=== PATIENT | female | born 1950 | race Caucasian/White ===

== ENCOUNTER 2016-12-22 10:31 | Emergency (ER) | payer OTHER, MEDICARE ==
[~2016-12-22] VITALS: Ht 152.4 cm; Wt 99.8 kg
[~2016-12-22 10:31] MED LIST: ALBUTEROL 3 ML3 ML INH; ATIVAN 0.5MG T0.5 MG PO; ATROVENT 0.02%2.5 ML INH; AZITHROMYCIN250 MG PO; BREO ELLIPTA 11 EACH PO; COMBIVENT1 ARO INH; DELTASONE20 MG PO; DESYREL50 MG PO; DILTIAZEM ER240 MG PO; DILTIAZEM240 M1 PO; FOSAMAX70 M1 PO; FUROSEMIDE20 M1 PO; GABAPENTIN TAB600 MG PO; GABAPENTIN300 MG PO; GLUCOPHAGE500 MG PO; GLUCOPHAGE850 M1 PO; GLUCOPHAGE850 MG PO; IPRATROPIUM 2.2.5 ML PO; KLOR-CON 10MEQ10 MEQ PO; KLOR-CON M1010 ME1 PO; LASIX 100M100 MG/10 IV; LASIX20 MG PO; LASIX40 MG PO; LEADER NIC14 MG/24 H TOP; LEXAPRO 5MG5 MG PO; LEXAPRO10 M1 PO; LISINOPRIL10 M1 PO; MAGNESIUM OXID400 M1 PO; METFORMIN HCL500 M3 PO; METFORMIN HCL500 MG PO; NICODERM C21 MG/24 H TOP; NOVOLOG100 U/ML SC; PREDNISONE10 MG PO; PREDNISONE5 MG PO; PRINIVIL10 MG PO; SOLU-MEDROL40 MG IV; SPIRIVA 18 MCG18 MCG INH; SYMBICORT 160/41 PUF INH; VENTOLIN1 PUF INH; VENTOLIN1 PUF PO; ZITHROMAX 500M500 MG PO; ZOFRAN 4 MG TABL4 MG PO
[2016-12-22] MEDS ORDERED: PROVENTIL HFA6.7 GM INH (11:58)
[2016-12-22] MEDS ORDERED: ALBUTEROL2.5 MG/3 M INH/SOL (11:58)
[2016-12-22] MEDS ORDERED: IPRATROPIU0.2 MG/1 M INH/SOL (12:00)
[2016-12-22] MEDS ORDERED: ATIVAN0.5 M1 PO (12:01)
--- NOTE | 2016-12-22 12:49 | CT SCAN REPORT ---
EXAMINATION: CT HEAD WITHOUT CONTRAST CLINICAL INFORMATION: Recent fall with head injury. COMPARISON: None. TECHNIQUE: Contiguous axial imaging was performed from the skull base to vertex without intravenous administration of contrast. Additional coronal reformatted images are submitted. DLP: 636.69 mGy-cm FINDINGS: There is no evidence of acute intracranial hemorrhage or territorial infarction. No abnormal mass effect or midline shift is seen. Funk to white matter differentiation is well preserved. No extra-axial fluid collections are identified. The ventricles are normal in size. There is mild patchy low attenuation change in the periventricular white matter spaces. A tiny lacunar infarction is seen in the right globus pallidus. The osseous structures and soft tissues are normal. At the anterior left vertex, a 0.5 mm calcified meningioma is seen. This shows no mass effect and is of doubtful clinical significance. The mastoid air cells and visualized portions of the paranasal sinuses are well aerated. IMPRESSION: 1. No acute intracranial pathology. 2. There is mild patchy low attenuation change in the periventricular white matter spaces, commonly associated with chronic microangiopathy. 3. A tiny chronic lacunar infarction is incidentally noted within the right globus pallidus.
--- NOTE | 2016-12-22 12:54 | ED MVC/FALL/TRAUMA COMPLAINT ---
History of Present Illness General Chief Complaint: Fall Stated Complaint: BIBA BODY PAIN S/P FALL LAST NIGHT Source: patient Exam Limitations: no limitations Vital Signs & Intake/Output Vital Signs & Intake/Output Vital Signs Date Time Temp Pulse Resp B/P B/P Pulse O2 O2 Flow FiO2 Mean Ox Delivery Rate 12/22 1500 97.5 98 18 145/72 95 Room Air Room Air 12/22 1441 98 Nasal 2.0L Cannula ED Intake and Output 12/23 0000 12/22 1200 Intake Total Output Total Balance Patient 220 lb Weight Allergies Coded Allergies: NO KNOWN ALLERGIES (11/27/14) Reconcile Medications Albuterol Sulfate 2.5 MG/3 ML (0.083 %) VIAL.NEB 1 Vial INH/JUAN R TID BREATHING PROBLEMS (Reported) Albuterol Sulfate (Proventil Hfa) 90 MCG HFA.AER.AD 2 PUF INH Q4 PRN SHORTNESS OF BREATH (Reported) Alendronate Sodium (Fosamax) 70 MG TABLET 1 TAB PO QSUN BONE (Reported) in the morning, at least 30 minutes before the first food, beverage, or medication of the day Diltiazem HCl (Diltiazem ER) 240 MG CAP.ER.DEG 1 MG PO D HEART HEALTH ( Reported) Escitalopram Oxalate (Lexapro) 10 MG TABLET 1 TAB PO DAILY DEPRESSION ( Reported) Fluticasone/Vilanterol (Breo Ellipta 100-25 Mcg INH) 100 MCG-25 MCG/DOSE BLST.W.DEV 1 PUFF PO DAILY SHORTNESS OF BREATH (Reported) Furosemide 20 MG TABLET 1 TAB PO DAILY HEART HEALTH (Reported) Ipratropium [place] 0.2 MG/ML (0.02 %) SOLUTION 1 Vial INH/JUAN R TID BREATHING PROBLEMS (Reported) Lisinopril 10 MG TABLET 1 TAB PO DAILY HIGH BLOOD PRESSURE (Reported) Lorazepam (Ativan) 0.5 MG TABLET 1 TAB PO QPMP PRN ANXIETY (Reported) Magnesium Oxide 400 MG TABLET 1 TAB PO DAILY PRN SUPPLEMENT (Reported) Metformin HCl 500 MG TABLET 1 TAB PO BID DIABETES (Reported) Potassium Chloride (Klor-Con M10) 10 MEQ TAB.ER.PRT 1 TAB PO DAILY HEALTH SUPPLEMENT (Reported) Triage Note: PT STATES THAT SHE LIVES BY HERSELF AND LAST NIGHT SHE SLIPPED ON PAPERS AND FELL AND HIT THE BACK OF HER HEAD ON THE FLOOR. PT WASABLE TO GET UP ON OWNAND DENIES LOC. ALSO STATES THAT SHE HAS A BRUISE TO HER L SHOULDER. SENT FOR HEAD CT. DENIES THINNERS Triage Nurses Notes Reviewed? yes HPI: This patient is a 66 year old female who presented for evaluation of pain s/p fall yesterday. She reported that she was trying to close a window last night, but there was newspaper on the floor and she slipped. She reported that she hit the back of her head on the ground. Denied LOC. She reported that she has pain in the back of her head only when palpated which is a 2 out of 10 and throbbing. She denied an headaches, visual changes, dizziness, nausea, vomiting, abdominal pain. She did reported 4 out of 10 pain in her left elbow, "only sometimes," which is non radiating. She endorsed pain in her right rib cage as well. (WINSOME HATHAWAY PA-C) Past History Travel History Traveled to [place] past 21 day No Medical History Any Pertinent Medical History? 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 No (WINSOME HATHAWAY PA-C) Review of Systems Review of Systems Constitutional: Reports: no symptoms. Eyes: Reports: no symptoms. Ears, Nose, Throat, Mouth: Reports: no symptoms. Respiratory: Reports: no symptoms. Cardiovascular: Reports: no symptoms. Gastrointestinal/Abdominal: Reports: no symptoms. Musculoskeletal: Reports: see HPI. Skin: Reports: no symptoms. Neurological/Psychological: Reports: no symptoms. All Other Systems: Reviewed and Negative (WINSOME HATHAWAY PA-C) Physical Exam Physical Exam General Appearance: well developed/nourished, no apparent distress, alert, awake Comments: Well-developed well-nourished person in no acute distress HEENT: Normal EENT exam, extraocular motion intact, no nystagmus. Pupils equally round and reactive to light. Nose is atraumatic. External auditory canal and Tympanic membranes clear. Pharynx normal. No swelling or edema. Neck: Supple, no lymphadenopathy, normal range of motion without pain or tenderness Back: Nontender, no CVA tenderness. Full range of motion Cardiovascular: Regular rate and rhythms no murmurs, normal JVP Respiratory: Chest nontender. No respiratory distress. Breath sounds clear to auscultation bilaterally Abdomen: Soft, nontender nondistended, no appreciable organomegaly. Normal bowel sounds. No ascites Extremity: No edema, no calf tenderness to palpation, normal and equal pulses. Neuro: Alert oriented x3, motor sensory normal, cranial nerves II through XII grossly intact. Skin: No appreciable rash on exposed skin, skin is warm and dry. Psych: Mood and affect is normal, memory and judgment is normal. Core Measures ACS in differential dx? Yes Severe Sepsis Present: No Septic Shock Present: No (RIVAS SELLERS,WINSOME) Progress Differential Diagnosis: aoritic dissection, abd injury, C/T/L spine injury, ext injury, ICH, pelvis injury, pnemothorax, spinal cord injury, consussion Plan of Care: Current Medications Sig/Warren Start time Last Medication Dose Stop Time Status Admin Albuterol Sulfate 3 ML ONCE ONE 12/22 1430 UNVr (Proventil) 12/22 1431 Ipratropium [place] 2.5 ML ONCE ONE 12/22 1430 UNVr (Atrovent) 12/22 1431 Diagnostic Imaging: Viewed by Me: Radiology Read, CT Scan. Discussed w/RAD: Radiology Read, CT Scan. Radiology Impression: PATIENT: ODALIS ONEAL PRESENT AGE: 66 PATIENT ACCOUNT NO: [id number] : 48 LOCATION: [facility] ORDERING PHYSICIAN: PRASHANT WALTERS DO SERVICE DATE: 12/22/16 EXAM TYPE: CAT - CT HEAD WO IV CONTRAST EXAMINATION: CT HEAD WITHOUT CONTRAST CLINICAL INFORMATION: Recent fall with head injury. COMPARISON: None. TECHNIQUE: Contiguous axial imaging was performed from the skull base to vertex without intravenous administration of contrast. Additional coronal reformatted images are submitted. DLP: 636.69 mGy-cm FINDINGS: There is no evidence of acute intracranial hemorrhage or territorial infarction. No abnormal mass effect or midline shift is seen. Funk to white matter differentiation is well preserved. No extra-axial fluid collections are identified. The ventricles are normal in size. There is mild patchy low attenuation change in the periventricular white matter spaces. A tiny lacunar infarction is seen in the right globus pallidus. The osseous structures and soft tissues are normal. At the anterior left vertex, a 0.5 mm calcified meningioma is seen. This shows no mass effect and is of doubtful clinical significance. The mastoid air cells and visualized portions of the paranasal sinuses are well aerated. IMPRESSION: 1. No acute intracranial pathology. 2. There is mild patchy low attenuation change in the periventricular white matter spaces, commonly associated with chronic microangiopathy. 3. A tiny chronic lacunar infarction is incidentally noted within the right globus pallidus. DICTATED BY: BRIT CHIN MD DATE/TIME DICTATED:12/22/161239 ICU REGISTERED NURSE:BETY DATE/TIME TRANSCRIBED:12/22/161239 CONFIDENTIAL, DO NOT COPY WITHOUT APPROPRIATE AUTHORIZATION. <Electronically signed in Other Vendor System> SIGNED BY: BRIT CHIN MD 12/22/16 1249, PATIENT: ODALIS ONEAL PRESENT AGE: 66 PATIENT ACCOUNT NO: [id number] : 48 LOCATION: [facility] ORDERING PHYSICIAN: WINSOME HATHAWAY PA-C SERVICE DATE: 12/22/16 EXAM TYPE: RAD - XRY-RIBS UNILATERAL-RIGHT EXAMINATION: XR RIBS, RIGHT CLINICAL INFORMATION: Rib pain after fall COMPARISON: 04/14/2016 TECHNIQUE: AP chest and 3 views of the right ribs were obtained. FINDINGS: Lungs are clear. No consolidation, pneumothorax, or pleural effusion. The pulmonary vasculature are normal. There is stable cardiomegaly. There is calcification of the aortic arch, unchanged. Osseous structures are unremarkable. Ribs are intact. No fractures are identified. IMPRESSION: No acute abnormality. Stable cardiomegaly. No evidence of rib fracture. DICTATED BY: YESSENIA AYALA MD DATE/ TIME DICTATED:12/22/161409 ICU REGISTERED NURSE:DARLING DATE/TIME TRANSCRIBED: 12/22/161409 CONFIDENTIAL, DO NOT COPY WITHOUT APPROPRIATE AUTHORIZATION. < Electronically signed in Other Vendor System> SIGNED BY: YESSENIA AYALA MD 12/22/16 1415, PATIENT: ODALIS ONEAL PRESENT AGE: 66 PATIENT ACCOUNT NO: [id number] : 48 LOCATION: [facility] ORDERING PHYSICIAN: WINSOME HATHAWAY PA-C SERVICE DATE: 12/22/16 EXAM TYPE: RAD - XRY-ELBOW 3 OR MORE VIEWS, L EXAMINATION: XR ELBOW, LEFT CLINICAL INFORMATION: Status post fall. Left elbow pain. Rule out fracture. COMPARISON: None TECHNIQUE: AP, lateral, and oblique views of the left elbow. FINDINGS: There is no evidence of fracture or dislocation. No elbow joint effusion is noted. The osseous structures and articular margins are unremarkable. A note is made of a 3 mm oval density projecting in the posterior and medial soft tissues of the proximal forearm adjacent to the cortex of the proximal ulnar diaphysis. A similar appearing tiny density is noted projecting over the posterior soft tissues at the elbow joint. IMPRESSION: No evidence of acute fracture or dislocation in the left elbow. No left elbow joint effusion. A 3 mm oval density projecting in the posterior medial soft tissues of the proximal to mid forearm and of posterior elbow, are nonspecific, may represent a calcifications or foreign body. DICTATED BY: ROSIO FUNG MD DATE/TIME DICTATED:12/22/161305 ICU REGISTERED NURSE:BETY DATE/TIME TRANSCRIBED:12/22/161305 CONFIDENTIAL, DO NOT COPY WITHOUT APPROPRIATE AUTHORIZATION. <Electronically signed in Other Vendor System> SIGNED BY: ROSIO FUNG MD 12/22/16 1314 (WINSOME HATHAWAY PA-C) Departure Departure Disposition: HOME OR SELF CARE Condition: Stable Clinical Impression Primary Impression: Contusion Qualifiers: Encounter type: initial encounter Contusion area: head Contusion of head detail: scalp Qualified Code: S00.03XA - Contusion of scalp, initial encounter Referrals: ROSITA KNIGHT,MARIETTA RIVERA (PCP/Family) Additional Instructions: You may apply ice to the affected areas as needed. Please follow-up with the orthopedist whose information has been provided to you in this packet for further evaluation. Return for any worsening symptoms or concerns. Departure Forms: Customer Survey General Discharge Information (WINSOME HATHAWAY PA-C) PA/FORMULA ROOM WORKER Co-Sign Statement Statement: ED Attending supervision documentation- [X] I saw and evaluated the patient. I have also reviewed all the pertinent lab results and diagnostic results. I agree with the findings and the plan of care as documented in the PA's/FORMULA ROOM WORKER's documentation. [X] I have reviewed the ED Record and agree with the PA's/FORMULA ROOM WORKER's documentation. [] Additions or exceptions (if any) to the PAs/FORMULA ROOM WORKER's note and plan are summarized below: [] (ROBERT KNIGHT,[place])
--- NOTE | 2016-12-22 13:14 | RADIOLOGY REPORT ---
EXAMINATION: XR ELBOW, LEFT CLINICAL INFORMATION: Status post fall. Left elbow pain. Rule out fracture. COMPARISON: None TECHNIQUE: AP, lateral, and oblique views of the left elbow. FINDINGS: There is no evidence of fracture or dislocation. No elbow joint effusion is noted. The osseous structures and articular margins are unremarkable. A note is made of a 3 mm oval density projecting in the posterior and medial soft tissues of the proximal forearm adjacent to the cortex of the proximal ulnar diaphysis. A similar appearing tiny density is noted projecting over the posterior soft tissues at the elbow joint. IMPRESSION: No evidence of acute fracture or dislocation in the left elbow. No left elbow joint effusion. A 3 mm oval density projecting in the posterior medial soft tissues of the proximal to mid forearm and of posterior elbow, are nonspecific, may represent a calcifications or foreign body.
--- NOTE | 2016-12-22 14:15 | RADIOLOGY REPORT ---
EXAMINATION: XR RIBS, RIGHT CLINICAL INFORMATION: Rib pain after fall COMPARISON: 04/14/2016 TECHNIQUE: AP chest and 3 views of the right ribs were obtained. FINDINGS: Lungs are clear. No consolidation, pneumothorax, or pleural effusion. The pulmonary vasculature are normal. There is stable cardiomegaly. There is calcification of the aortic arch, unchanged. Osseous structures are unremarkable. Ribs are intact. No fractures are identified. IMPRESSION: No acute abnormality. Stable cardiomegaly. No evidence of rib fracture.
[2016-12-22 15:00] VITALS: BP 145/72
[2017-02-04] MEDS ORDERED: MEDROL4 M2 PO (19:17)
== END 2016-12-22 15:03 ==
LOC: ERH 10:31
DX: S00.93XA Contusion of unspecified part of head, initial encounter (principal); W01.0XXA Fall on same level from slipping, tripping and stumbling without subsequent striking against object, initial encounter; Y92.9 Unspecified place or not applicable; Y93.9 Activity, unspecified
CPT/HCPCS: 1263; 71100-RT; 73080-LT

== ENCOUNTER 2017-01-19 13:04 | Inpatient (IN) | payer OTHER, MEDICARE ==
[~2017-01-19] VITALS: Ht 152.4 cm; Wt 99.8 kg
[~2017-01-19 13:04] MED LIST changes: +ALBUTEROL2.5 MG/3 M INH/SOL; +ATIVAN0.5 M1 PO; +IPRATROPIU0.2 MG/1 M INH/SOL; +PROVENTIL HFA6.7 GM INH
--- NOTE | 2017-01-19 13:10 | ED DYSPNEA/ASTHMA COMPLAINT ---
History of Present Illness General Chief Complaint: Dyspnea (COPD, CHF, Other) Stated Complaint: BIBA FOR SOB Vital Signs & Intake/Output Vital Signs & Intake/Output Vital Signs Date Time Temp Pulse Resp B/P B/P Pulse O2 O2 Flow FiO2 Mean Ox Delivery Rate 01/19 1331 99 Aerosol 8L Mask 01/19 1315 100 Room Air 01/19 1309 98.7 88 22 168/96 99 Allergies Coded Allergies: NO KNOWN ALLERGIES (11/27/14) Reconcile Medications Albuterol Sulfate 2.5 MG/3 ML (0.083 %) VIAL.NEB 1 Vial INH/JUAN R TID BREATHING PROBLEMS (Reported) Albuterol Sulfate (Proventil Hfa) 90 MCG HFA.AER.AD 2 PUF INH Q4 PRN SHORTNESS OF BREATH (Reported) Alendronate Sodium (Fosamax) 70 MG TABLET 1 TAB PO QSUN BONE (Reported) in the morning, at least 30 minutes before the first food, beverage, or medication of the day Diltiazem HCl (Diltiazem ER) 240 MG CAP.ER.DEG 1 MG PO D HEART HEALTH ( Reported) Escitalopram Oxalate (Lexapro) 10 MG TABLET 1 TAB PO DAILY DEPRESSION ( Reported) Fluticasone/Vilanterol (Breo Ellipta 100-25 Mcg INH) 100 MCG-25 MCG/DOSE BLST.W.DEV 1 PUFF PO DAILY SHORTNESS OF BREATH (Reported) Furosemide 20 MG TABLET 1 TAB PO DAILY HEART HEALTH (Reported) Ipratropium [place] 0.2 MG/ML (0.02 %) SOLUTION 1 Vial INH/JUAN R TID BREATHING PROBLEMS (Reported) Lisinopril 10 MG TABLET 1 TAB PO DAILY HIGH BLOOD PRESSURE (Reported) Lorazepam (Ativan) 0.5 MG TABLET 1 TAB PO QPMP PRN ANXIETY (Reported) Magnesium Oxide 400 MG TABLET 1 TAB PO DAILY PRN SUPPLEMENT (Reported) Metformin HCl 500 MG TABLET 1 TAB PO BID DIABETES (Reported) Potassium Chloride (Klor-Con M10) 10 MEQ TAB.ER.PRT 1 TAB PO DAILY HEALTH SUPPLEMENT (Reported) Past History Travel History Traveled to [place] past 21 day No Medical History Neurological: NONE EENT: hearing loss Cardiovascular: CHF, hypertension Respiratory: bronchitis, COPD, pneumonia, SLEEP APNEA on CPAP Gastrointestinal: NONE Hepatic: NONE Renal: urinary incontinence Musculoskeletal: NONE Psychiatric: anxiety, the patient reports depression "about 35 years ago" Endocrine: diabetes, obesity Blood Disorders: NONE Cancer(s): NONE 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 History of MRSA: No History of VRE: No History of CDIFF: No Surgical History Surgical History: non-contributory Psychosocial History Who do you live with Patient/Self Services at Home Home Health Aide, Nursing What is your primary language [place] Tobacco Use: Current Daily Use Daily Tobacco Use Amount/Type: => 5 Cigarettes daily ETOH Use: occasional use Illicit Drug Use: denies illicit drug use Family History Family History, If Any: FATHER FH: Alzheimer's disease MOTHER FH: heart disease Progress Plan of Care: Orders Procedure Date/time Status Heart Healthy Diet 01/19 D Active LACTIC ACID 01/19 1609 Active ED Holding Orders 01/19 1433 Active Admit to inpatient 01/19 1433 Active Vital Signs 01/19 1433 Active Code Status 01/19 1433 Active RT ED ORDERS 01/19 1312 Active EKG 01/19 1312 Active RT ED ORDERS 01/19 1311 Active Telemetry/Public Policy Coordinator 01/19 1309 Active TROPONIN LEVEL 01/19 1309 Complete PARTIAL THROMBOPLASTIN TIME 01/19 1309 Complete PROTHROMBIN TIME 01/19 1309 Complete LACTIC ACID 01/19 1309 Complete COMPREHENSIVE METABOLIC PANEL 01/19 1309 Complete CBC WITHOUT DIFFERENTIAL 01/19 1309 Complete B-TYPE NATRIURETIC PEP (BNP) 01/19 1309 Complete Laboratory Tests 01/19/17 1315: Anion Gap 10, Estimated GFR > 60, BUN/Creatinine Ratio 16.3, Glucose 95, Lactic Acid 1.0, Calcium 9.8, Total Bilirubin 0.6, AST 20, ALT 32, Alkaline Phosphatase 103, Troponin I < 0.01, [id number]-Vpuqzimqhbu Pept 476 H, Total Protein 7.6, Albumin 4.3, Globulin 3.3, Albumin/Globulin Ratio 1.3, PT 10.8, INR 1.03, APTT 31, CBC w Diff NO MAN DIFF REQ, RBC 4.81, MCV 81.2, MCH 26.3 L, RDW 17.0 H, MPV 7.0 L, Gran % 71.5, Lymphocytes % 14.7 L, Monocytes % 10.6 H, Eosinophils % 2.7, Basophils % 0.5, Absolute Granulocytes 5.9, Absolute Lymphocytes 1.2, Absolute Monocytes 0.9 H, Absolute Eosinophils 0.2, Absolute Basophils 0, PUBS MCHC 32.4 L Departure Departure Time of Disposition: 1433 Disposition: STILL A PATIENT Condition: Stable Clinical Impression Primary Impression: COPD with exacerbation Referrals: MARIETTA SANTIAGO (PCP/Family) Departure Forms: Customer Survey General Discharge Information Admission Note Spoke With: MARIO KNIGHT,ABILIO Documentation of Exam: Documentation of any treatments & extenuating circumstances including Concerns Regarding Discharge (functional status, medication knowledge or non-compliance, living conditions, etc.) that warrant an admission rather than observation: [IV steroids, TRC/nebs, pulmonary consultation Sindy Garnica MD, monitor intake and output, Lasix]
--- NOTE | 2017-01-19 13:18 | NUR ---
PT TO ED FOR WORSENING SOB AFTER SMOKING APPROX 1/2 OF CIGARETTES TODAY. PT REPORTING SHE NORMALLY SMOKES APPROX 1 PACK A DAY, IS NOT ON HOME 02 BUT FELT "WORSE THAN NORMAL" TODAY SO CALLED EMS. ON ARRIVAL, PT ON A NEB TX FROM EMS, 18G IN L WRIST, PT ALERT AND ORIENTED, LEGS APPEAR SWOLLEN WHICH PT STATES IS HER BASELINE, LUNGS RHONCHI THROUGHOUT.
--- NOTE | 2017-01-19 13:19 | NUR ---
IMMEDIATELY UPON ARRIVAL TO ED PT REQUESTING LUNCH AND THE TV TURNED OUT, REFUSING TO CHANGE INTO A HOSPITAL GOWN AT THIS TIME, DR JONES AT BEDSIDE TO EVCHIDI AND RT AT [facility] FOR CONTINUOS JADON
[2017-01-19 13:24] LABS: ABSOLUTE BASOPHIL COUNT 0 /CUMM (0.0-0.2); ABSOLUTE EOSINOPHIL COUNT 0.2 /CUMM (0.0-0.7); ABSOLUTE GRANULOCYTE CT 5.9 /CUMM (1.4-6.5); ABSOLUTE LYMPH COUNT 1.2 /CUMM (1.2-3.4); ABSOLUTE MONOCYTE COUNT 0.9 /CUMM (0.10-0.60); BASOPHIL % 0.5 % (0.0-2.0); EOSINOPHIL % 2.7 % (0-5); GRANULOCYTE % 71.5 % (42.2-75.2); HEMATOCRIT 39.1 % (37-47); MEAN CORPUSCULAR HGB 26.3 PG (27.0-31.0); MEAN CORPUSCULAR HGB CONC 32.4 G/DL (33.0-37.0); MEAN CORPUSCULAR VOLUME 81.2 FL (81.0-99.0); PLATELET COUNT 271 /CUMM (130-400); RED BLOOD CELL CT 4.81 /CUMM (4.20-5.40); WHITE BLOOD CELL COUNT 8.2 /CUMM (4.8-10.8)
[2017-01-19 13:33] LABS: PT 10.8 SEC (9.4-12.5); PTT 31 SEC (25-37)
--- NOTE | 2017-01-19 14:17 | NUR ---
PT REFUSING TO USE BED MALONE, INSISTED ON USING WALKER TO GET UP TO VOID IN COMMODE. ATTEMPTED TO EXPLAIN SAFETY REASONS ON WHY PT SHOULD USE A BED MALONE AND PT CONTINUES TO REFUSE
--- NOTE | 2017-01-19 14:21 | RADIOLOGY REPORT ---
EXAMINATION: XR PORTABLE CHEST CLINICAL INFORMATION: Respiratory distress. COMPARISON: CT lung survey without contrast 12/26/2016. Portable chest x-ray 11/27/2014. TECHNIQUE: Portable frontal view of the chest was obtained. FINDINGS: Limited exam secondary to patient body habitus and low lung volumes. No visible focal airspace consolidation. No pleural effusions or pneumothoraces are identified. Cardiomediastinal contours are stable and there is stable prominence of the cardiac silhouette, without overt pulmonary edema. Soft tissues are unremarkable. No acute osseous abnormality is identified. IMPRESSION: Limited exam secondary to patient body habitus and low lung volumes. No visible acute pulmonary process. Stable prominence of the cardiac silhouette, without overt pulmonary edema. Consider correlation with PA and lateral chest x-ray.
--- NOTE | 2017-01-19 14:28 | NUR ---
PT REQUESTING "TO WAIT BEFORE I GET THE LASIX" WILL ATTEMPT TO GIVE SHORTLY
--- NOTE | 2017-01-19 14:36 | NUR ---
PT MEDICATED WITH LASIX PER EMAR, REQUESTING TO SIT IN CHAIR WITH BEDSIDE TABLE IN FRONT OF HER. PT PLACED ON 1L 02 NC BY RT.
--- NOTE | 2017-01-19 14:45 | History & Physical ---
SALOMÓN MARTINEZ 01/19/17 1444: General Information and HPI MD Statement: I have seen and personally examined ODALIS ONEAL and documented this H&P. The patient is a 66 year old F who presented with a patient stated chief complaint of []. Source of Information: patient, old records Exam Limitations: no limitations History of Present Illness: This is a 66-year-old lady with past medical history significant for COPD not on home oxygen, LATOYA,HFpEF(last echo on Jul 2014) presents to the hospital with chief complaint of worsening dyspnea x one month. Per patient, she does have exertional dyspnea at baseline however this has been worsening for the past month. Per patient, she is hardly able to walk a few steps without getting short of breath for the past 2 days. She reports dry cough for the past week, denies fever, chills, history of sick contact. Denies any lower extremity edema, orthopnea. She ambulates with a walker, smokes approximately 5 cigarettes per day, reports occasional EtOH use, denies any illicit drug use. Upon presentation to the ED she was placed on 8 L nasal cannula oxygen and received 40 mg of IV Lasix after which her symptoms much improved. Allergies/Medications Allergies: Coded Allergies: NO KNOWN ALLERGIES (11/27/14) Home Med list Albuterol Sulfate 2.5 MG/3 ML (0.083 %) VIAL.NEB 1 Vial INH/JUAN R TID BREATHING PROBLEMS (Reported) Albuterol Sulfate (Proventil Hfa) 90 MCG HFA.AER.AD 2 PUF INH Q4 PRN SHORTNESS OF BREATH (Reported) Alendronate Sodium 35 MG TABLET 1 TAB PO QSUN Bone (Reported) At least 30 min before any food/beverage or medication. Diltiazem HCl (Diltiazem ER) 240 MG CAP.ER.DEG 1 CAP PO D HEART HEALTH ( Reported) Escitalopram Oxalate (Lexapro) 10 MG TABLET 1 TAB PO DAILY DEPRESSION ( Reported) Fluticasone/Vilanterol (Breo Ellipta 100-25 Mcg INH) 100 MCG-25 MCG/DOSE BLST.W.DEV 1 PUFF PO DAILY SHORTNESS OF BREATH (Reported) Furosemide 20 MG TABLET 1 TAB PO DAILY HEART HEALTH (Reported) Ipratropium [place] 0.2 MG/ML (0.02 %) SOLUTION 1 Vial INH/JUAN R TID BREATHING PROBLEMS (Reported) Lisinopril 10 MG TABLET 1 TAB PO DAILY HIGH BLOOD PRESSURE (Reported) Lorazepam (Ativan) 0.5 MG TABLET 1 TAB PO QPMP PRN ANXIETY (Reported) Magnesium Oxide 400 MG TABLET 1 TAB PO DAILY PRN SUPPLEMENT (Reported) Metformin HCl 500 MG TABLET 1 TAB PO BID DIABETES (Reported) Potassium Chloride (Klor-Con M10) 10 MEQ TAB.ER.PRT 1 TAB PO DAILY HEALTH SUPPLEMENT (Reported) Past History Travel History Traveled to [place] past 21 day No Medical History Neurological: NONE EENT: hearing loss Cardiovascular: CHF, hypertension Respiratory: bronchitis, COPD, pneumonia, SLEEP APNEA on CPAP Gastrointestinal: NONE Hepatic: NONE Renal: urinary incontinence Musculoskeletal: NONE Psychiatric: anxiety, the patient reports depression "about 35 years ago" Endocrine: diabetes, obesity Blood Disorders: NONE Cancer(s): NONE 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 EENTM: Reports: no symptoms. Cardiovascular: Denies: chest pain, edema, orthopena, palpitations, peripheral edema, syncope. Respiratory: Reports: cough, short of breath, wheezing. Denies: hemoptysis, orthopnea, sputum production, stridor. GI: Reports: no symptoms. Genitourinary: Reports: no symptoms. Musculoskeletal: Reports: no symptoms. Skin: Reports: no symptoms. Neurological/Psychological: Reports: no symptoms. Hematologic/Endocrine: Reports: no symptoms. Immunologic/Allergic: Reports: no symptoms. All Other Systems: Reviewed and Negative Exam & Diagnostic Data Last 24 Hrs of Vital Signs/I&O Vital Signs Date Time Temp Pulse Resp B/P B/P Pulse O2 O2 Flow FiO2 Mean Ox Delivery Rate 01/19 1706 101 187/77 01/19 1625 99.1 90 18 184/77 91 Nasal 1.0L Cannula 01/19 1522 99.1 101 18 171/70 92 Nasal 1.0L Cannula 01/19 1331 99 Aerosol 8L Mask 01/19 1315 100 Room Air 01/19 1309 98.7 88 22 168/96 99 Intake & Output 01/19 1600 01/19 0800 01/19 0000 Intake Total Output Total 600 Balance -600 Output, Urine 600 Patient 220 lb Weight Weight Reported by Patient Measurement Method Physical Exam General Appearance Alert, Oriented X3, Cooperative, Mild Distress Skin No Rashes Skin Temp/Moisture Exam: Warm/Dry HEENT Atraumatic, PERRLA, EOMI, Mucous Membr. moist/pink Neck Supple, No JVD, No thryomegaly, +2 Carotid Pulse wo Bruit, No LAD Lymphatic Axillary nl, Cervical nl Cardiovascular Regular Rate, Normal S1, Normal S2, No Murmurs Lungs expiratory wheezes, bibasilar crackles Abdomen Normal Bowel Sounds, Soft, No Tenderness, No Hepatospenomegaly, No Masses, Distended Neurological Normal Speech, Strength at 5/5 X4 Ext, Normal Tone, Sensation Intact, Cranial Nerves 3-12 NL, Reflexes 2+ Extremities No Clubbing, No Cyanosis, No Edema, Normal Pulses, No Tenderness/ Swelling Vascular Normal Pulses, Pulses Symmetrical Last 24 Hrs of Labs/Gilles: Laboratory Tests 01/19/17 1609: Lactic Acid Cancelled 01/19/17 1315: Anion Gap 10, Estimated GFR > 60, BUN/Creatinine Ratio 16.3, Glucose 95, Lactic Acid 1.0, Calcium 9.8, Total Bilirubin 0.6, AST 20, ALT 32, Alkaline Phosphatase 103, Troponin I < 0.01, Jrg-M-Rgoxiqhazrb Pept 476 H, Total Protein 7.6, Albumin 4.3, Globulin 3.3, Albumin/Globulin Ratio 1.3, PT 10.8, INR 1.03, APTT 31, CBC w Diff NO MAN DIFF REQ, RBC 4.81, MCV 81.2, MCH 26.3 L, RDW 17.0 H, MPV 7.0 L, Gran % 71.5, Lymphocytes % 14.7 L, Monocytes % 10.6 H, Eosinophils % 2.7, Basophils % 0.5, Absolute Granulocytes 5.9, Absolute Lymphocytes 1.2, Absolute Monocytes 0.9 H, Absolute Eosinophils 0.2, Absolute Basophils 0, PUBS MCHC 32.4 L Microbiology 01/19 1651 LOWER RESP: Respiratory Culture - ORD 01/19 1651 LOWER RESP: Gram Stain - ORD 01/19 1651 BLOOD: Blood Culture - CAN Cancelled: Cancelled via OE: Per MD Decision 01/19 1651 BLOOD: Blood Culture - CAN Cancelled: Cancelled via OE: Per MD Decision Diagnostic Data EKG Results SR 88, T inversion in V1-V2 (not changed from previous EKG), No ST-T wave changes, QTC 446 CXR Results IMPRESSION: Limited exam secondary to patient body habitus and low lung volumes. No visible acute pulmonary process. Stable prominence of the cardiac silhouette, without overt pulmonary edema. Consider correlation with PA and lateral chest x- ray. Assessment/Plan Assessment: This is a 66-year-old lady with past medical history significant for COPD not on home oxygen, LATOYA,HFpEF(last echo on Jul 2014) presents to the hospital with chief complaint of worsening dyspnea x one month. Symptoms improved after receiving oxygen and IV diuretics. On admission was found to be afebrile, hypoxic hypertensive and tachycardic. positive for elevated proBNP 476 otherwise unremarkable. Chest x-ray did not reveal any consolidation. Assessment: #worsening dyspnea: Likely secondary to COPD exacerbation/bronchitis; no clinical sign of any infection vs Heart failure(unlikely) vs pul HTN(RVSP 44) #Acute on chronic respiratory failure: Likely secondary to COPD exacerbation/ bronchitis #History of diabetes: Stable, hemoglobin A1c 6 #History of hypertension #Elevated proBNP #History of Anxiety Plan: * Admit to general medicine floor * Will start the patient on IV methylprednisolone 40 mg Q8, IV azithromycin 500 mg daily * TRC/nebs * Will maintain the patient on nocturnal CPAP * Pulmonary consult * Will obtain an echocardiogram * Accu-Cheks/insulin sliding scale * Will resume home medications for blood pressure control; monitor blood pressures closely * DVT PPX sc heparin * Full code * Tobacco cessation counseling was porvided. As Ranked By This Provider Problem List: 1. COPD EXACERBATION Core Measures/Miscellaneous Acute Coronary Syndrome ACS Diagnosis: No Cerebrovascular Accident CVA/TIA Diagnosis: No Congestive Heart Failure CHF Diagnosis: No Venous Thromboembolism VTE Risk Factors: Age > 40 No [facility] prophylaxis d/t: No contraindications No VTE Pharm Prophylaxis d/t: No contraindications VTE Diagnosis: No VTE Type: NONE VTE Confirmed by (Test): NONE Severe Sepsis Severe Sepsis Present: No Septic Shock Septic Shock Present: No Miscellaneous Documentation Attending Case Discussed With: ABILIO MARTIN MD Primary Care Physician: MARIETTA SANTIAGO Patient sees these Specialists Pulm Level of Patient Care: General Medicine ABILIO MARTIN 01/19/17 1451: Attending MD Review Statement Attending Statement Attending MD Statement: examined this patient, discuss w/resident/PA/EVALUATION ASSISTANT, agreed w/resident/PA/EVALUATION ASSISTANT, discussed with family, reviewed EMR data (avail), discussed with nursing, discussed with case mgmt, reviewed images, amended to note Attending Assessment/Plan: This is a 64-year-old female with known COPD, chronic respiratory failure on oxygen and obstructive sleep apnea on CPAP, diabetes hypertension and severe anxiety. chest xray negative for pulmonary edema. ASSESSMENT 1. Acute on chronic respiratroy failure 2. COPD exacerbation 2/2 acute bronchitis on home oxygen 3. LATOYA on CPAP. 4. Daibetes controlled Hbaic 6.0 5. Hypertension 6. Anxiety 7. Elevated probnp 8. Pulmonary hypertension RVSP 44 PLAN admit to inpatient medical services. iv steroids, abx oxygen supplemnetation, bronchodilators, consult pulmonary , cpap at night obtain echo, resume home meds for bp control, riss and Basal insulin. gi/dvt prophylaxis full code plan of care d/wed with patient bedside in ER, patient in agreement.
--- NOTE | 2017-01-19 14:47 | NUR ---
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 WHEN PT ASKED WHY SHE AMBULATED WITHOUT USING THE CALL KANG PT STATING "I DIDN'T FEEL LIKE IT" PT AGAIN REMINDED OF THE PURPOSE OF CALL KANG AND THE SAFETY REASONS FOR DOING SO. PT CONTINUES TO AMBULATE TO BATHROOM
--- NOTE | 2017-01-19 14:48 | NUR ---
PT VOIDED, REFUSED TO WAIT FOR HAT FOR MEASUREMENT
--- NOTE | 2017-01-19 15:17 | NUR ---
HOUSE STAFF TO BEDSIDE TO EVAL PT
--- NOTE | 2017-01-19 15:32 | NUR ---
PT AMBULATING TO AND FROM BATHROOM WITH WALKER MULTIPLE TIMES WITH NO DIFFICULTY
--- NOTE | 2017-01-19 16:09 | NUR ---
BED 214
--- NOTE | 2017-01-19 16:31 | NUR ---
SPOKE TO AMARA REGARDING PT'S BP, SHE STATED SHE WILL ORDER PT'S REGULAR BP MEDS AND THIS RN WILL MONITOR P/T SENDING TO FLOOW
--- NOTE | 2017-01-19 16:47 | NUR ---
REPORT GIVEN TO WILLIE PEREIRA
--- NOTE | 2017-01-19 17:11 | NUR ---
PER DR MARTIN STATING BLOOD CULTURES DO NOT NEED TO BE DRAWN AND IT IS OK TO GIVE ZITHROMAX
[2017-01-19] MEDS ORDERED: ALENDRONATE SOD35 M2 PO (17:40)
--- NOTE | 2017-01-19 17:58 | NUR ---
PT REQUESTING BREATH TX, RESIDENT PAGED
--- NOTE | 2017-01-19 18:12 | NUR ---
SPOKE TO AMARA WHO STATED THAT SHE PLACED [facility] ORDERS AND RT CALLED AND STATED THEY WILL EVAL PT ONCE THEY GET TO FLOOR - PT AGREEABLE TO PLAN
--- NOTE | 2017-01-19 18:20 | NUR ---
ATTEMPTED TO CALL RECEIVING RN TO NOTIFY OF IMPROVED BP AND NEW IV PLACEMENT WELL ZITHRO ADMIN
--- NOTE | 2017-01-19 18:31 | Cons- Pulmonary ---
General Information and HPI Consulting Request Date of Consult: 01/19/17 Requested By: med team History of Present Illness: This is a 66-year-old lady with past medical history significant for COPD not on home oxygen, LATOYA,HFpEF(last echo on Jul 2014) presents to the hospital with chief complaint of worsening dyspnea x one month. Per patient, she does have exertional dyspnea at baseline however this has been for the past month but really worsened for the past 2 days she is hardly able to walk a few steps without getting short of breath. She reports dry cough for the past week, denies fever, chills, history of sick contact. Denies any lower extremity edema, orthopnea. She ambulates with a walker, smokes approximately 5 cigarettes per day, reports occasional EtOH use, denies any illicit drug use. Upon presentation to the ED she was placed on 8 L nasal cannula oxygen and received 40 mg of IV Lasix after which her symptoms much improved. Allergies/Medications Allergies: Coded Allergies: NO KNOWN ALLERGIES (11/27/14) Home Med List: Albuterol Sulfate 2.5 MG/3 ML (0.083 %) VIAL.NEB 1 Vial INH/JUAN R TID BREATHING PROBLEMS (Reported) Albuterol Sulfate (Proventil Hfa) 90 MCG HFA.AER.AD 2 PUF INH Q4 PRN SHORTNESS OF BREATH (Reported) Alendronate Sodium 35 MG TABLET 1 TAB PO QSUN Bone (Reported) At least 30 min before any food/beverage or medication. Diltiazem HCl (Diltiazem ER) 240 MG CAP.ER.DEG 1 CAP PO D HEART HEALTH ( Reported) Escitalopram Oxalate (Lexapro) 10 MG TABLET 1 TAB PO DAILY DEPRESSION ( Reported) Fluticasone/Vilanterol (Breo Ellipta 100-25 Mcg INH) 100 MCG-25 MCG/DOSE BLST.W.DEV 1 PUFF PO DAILY SHORTNESS OF BREATH (Reported) Furosemide 20 MG TABLET 1 TAB PO DAILY HEART HEALTH (Reported) Ipratropium [place] 0.2 MG/ML (0.02 %) SOLUTION 1 Vial INH/JUAN R TID BREATHING PROBLEMS (Reported) Lisinopril 10 MG TABLET 1 TAB PO DAILY HIGH BLOOD PRESSURE (Reported) Lorazepam (Ativan) 0.5 MG TABLET 1 TAB PO QPMP PRN ANXIETY (Reported) Magnesium Oxide 400 MG TABLET 1 TAB PO DAILY PRN SUPPLEMENT (Reported) Metformin HCl 500 MG TABLET 1 TAB PO BID DIABETES (Reported) Potassium Chloride (Klor-Con M10) 10 MEQ TAB.ER.PRT 1 TAB PO DAILY HEALTH SUPPLEMENT (Reported) Review of Systems Review of Systems Constitutional: Reports: see HPI. Comments Review of Systems Constitutional: Denies: chills, diaphoresis, fever, malaise, weakness, unexplained weight loss. EENTM: Reports: no symptoms. Cardiovascular: Denies: chest pain, edema, orthopena, palpitations, peripheral edema, syncope. Respiratory: Reports: cough, short of breath, wheezing. Denies: hemoptysis, orthopnea, sputum production, stridor. GI: Reports: no symptoms. Genitourinary: Reports: no symptoms. Musculoskeletal: Reports: no symptoms. Skin: Reports: no symptoms. Neurological/Psychological: Reports: no symptoms. Hematologic/Endocrine: Reports: no symptoms. Immunologic/Allergic: Reports: no symptoms. 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 Surgical History Surgical History: non-contributory Family History Relations & Conditions If Any: FATHER FH: Alzheimer's disease MOTHER FH: heart disease Psychosocial History Services at Home: Home Health Aide, Nursing ETOH Use: occasional use Illicit Drug Use: denies illicit drug use Exam & Diagnostic Data Last 24 Hrs of Vital Signs/I&O Vital Signs Date Time Temp Pulse Resp B/P B/P Pulse O2 O2 Flow FiO2 Mean Ox Delivery Rate 01/19 1814 144/56 01/19 1706 101 187/77 01/19 1625 99.1 90 18 184/77 91 Nasal 1.0L Cannula 01/19 1522 99.1 101 18 171/70 92 Nasal 1.0L Cannula 01/19 1331 99 Aerosol 8L Mask 01/19 1315 100 Room Air 01/19 1309 98.7 88 22 168/96 99 Intake & Output 01/19 1600 01/19 0800 01/19 0000 Intake Total Output Total 600 Balance -600 Output, Urine 600 Patient 220 lb Weight Weight Reported by Patient Measurement Method Last 48 Hrs of Labs/Gilles: Laboratory Tests 01/19/17 1609: Lactic Acid Cancelled 01/19/17 1315: Anion Gap 10, Estimated GFR > 60, BUN/Creatinine Ratio 16.3, Glucose 95, Lactic Acid 1.0, Calcium 9.8, Total Bilirubin 0.6, AST 20, ALT 32, Alkaline Phosphatase 103, Troponin I < 0.01, Guw-M-Aguvprmlwsk Pept 476 H, Total Protein 7.6, Albumin 4.3, Globulin 3.3, Albumin/Globulin Ratio 1.3, PT 10.8, INR 1.03, APTT 31, CBC w Diff NO MAN DIFF REQ, RBC 4.81, MCV 81.2, MCH 26.3 L, RDW 17.0 H, MPV 7.0 L, Gran % 71.5, Lymphocytes % 14.7 L, Monocytes % 10.6 H, Eosinophils % 2.7, Basophils % 0.5, Absolute Granulocytes 5.9, Absolute Lymphocytes 1.2, Absolute Monocytes 0.9 H, Absolute Eosinophils 0.2, Absolute Basophils 0, PUBS MCHC 32.4 L Assessment/Plan Impression/Plan: Physical Exam General Appearance Alert, Oriented X3, Cooperative, Mild Distress Skin No Rashes Skin Temp/Moisture Exam: Warm/Dry HEENT Atraumatic, PERRLA, EOMI, Mucous Membr. moist/pink Neck Supple, No JVD, No thryomegaly, +2 Carotid Pulse wo Bruit, No LAD Lymphatic Axillary nl, Cervical nl Cardiovascular Regular Rate, Normal S1, Normal S2, No Murmurs Lungs expiratory wheezes, bibasilar crackles Abdomen Normal Bowel Sounds, Soft, No Tenderness, No Hepatospenomegaly, No Masses, Distended Neurological Normal Speech, Strength at 5/5 X4 Ext, Normal Tone, Sensation Intact, Cranial Nerves 3-12 NL, Reflexes 2+ Extremities No Clubbing, No Cyanosis, No Edema, Normal Pulses, No Tenderness/ Swelling Vascular Normal Pulses, Pulses Symmetrical SIGNIFICANT DATA chest x-ray showed no significant pneumonia CT scan just done few weeks ago showed mild emphysema 6 mm lung nodule appears to be a lymph node some lymphadenopathy in the hilum multinodular goiter trace pericardial effusion Significant data reviewed white count 8.2 no significant left shift ABG reviewed from before she does have hypercarbia Previous for pulmonary function test showed 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 IMPRESSION This is a lady with significant COPD, previous respiratory failure, severe obstructive sleep apnea, heart failure with preserved ejection fraction in the past, ongoing dyspnea now with significant acute shortness of breath. Issues include * Worsening dyspnea most likely related to a combination of factors which include COPD exacerbation with no clinical evidence suggestive of infection with combination of acute diastolic heart failure * Pulmonary hypertension related to COPD, diastolic heart disease and obstructive sleep apnea * Hypertension and anxiety RECOMMENDATION * Continue steroids reduce it to 40 mg twice a day * [id number]-[id number] nebulizer therapy * By mouth azithromycin * Continue intravenous Lasix and diuresis * Repeat an echocardiogram to evaluate her diastolic heart disease, pulmonary hypertension, evaluation for pericardial effusion as well * Continuous with throat can be switched to by mouth * If she does have a chronic cough lisinopril can be switched to losartan * Avoid high doses of benzo * Watch sugars * Cont cpap at 12 * Keep the blood pressure below 150 as she could have flash pulmonary edema Consult Acknowledgment - Thank you for your consult request.
[2017-01-19 22:27] VITALS: BP 132/72
[2017-01-20 06:47] VITALS: BP 136/74
--- NOTE | 2017-01-20 07:06 | PN- Housestaff ---
Subjective Follow-up For: COPD exacerbation LATOYA on CPAP Complaints: complaining of pain in left side of the knee and elbow Subjective: Patient is seen and examined at the bedside. She was still complaining of cough and whitish mucus, shortness of breath on lying. She accepts that she is still smoking. I counseled her on smoking and offered help for quitting. We advised for follow-up with COPD clinic for further management. Review of Systems Constitutional: Reports: weakness. Cardiovascular: Denies: no symptoms. Respiratory: Reports: cough, short of breath. Gastrointestinal: Denies: no symptoms. Genitourinary: Denies: no symptoms. Musculoskeletal: Reports: back pain. Neurological/Psychological: Denies: no symptoms. Objective Last 24 Hrs of Vital Signs/I&O Vital Signs Date Time Temp Pulse Resp B/P B/P Pulse O2 O2 Flow FiO2 Mean Ox Delivery Rate 01/20 0857 88 138/72 01/20 0843 93 Room Air Room Air 01/20 0800 95 Nasal 1.5L Cannula 01/20 0647 97.7 87 20 136/74 92 01/20 0449 89 95 01/20 0448 94 Nasal 1.0L Cannula 01/20 0103 87 92 01/20 0000 Nasal 1.0L Cannula 01/19 2227 97.4 90 24 132/72 95 Nasal 1.0L Cannula 01/19 2222 Nasal 1.0L Cannula 01/19 2047 104 146/84 01/19 1900 93 Nasal 1.0L Cannula 01/19 1814 144/56 01/19 1706 101 187/77 06/ 1625 99.1 90 18 184/77 91 Nasal 1.0L Cannula Intake & Output 01/20 1600 03 0800 01/20 0000 Intake Total 800 240 Output Total 650 Balance 800 -410 Intake, Oral 800 240 Number 1 Bowel Movements Output, Urine 650 Patient 99.79 kg Weight Weight Reported by Patient Measurement Method Physical Exam General Appearance: Alert, Oriented X3, Cooperative, Mild Distress Neck: No JVD Cardiovascular: Normal S1, Normal S2 Lungs: bilateral decreased air entry with occasional wheezing and basilar crepts Abdomen: Soft, No Tenderness Neurological: Normal Speech Extremities: No Clubbing, No Cyanosis Vascular: Normal Pulses, Pulses Symmetrical Current Medications: Current Medications Sig/Warren Start time Last Medication Dose Route Stop Time Status Admin Albuterol Sulfate 3 ML EVERY 4 HRS/AWAKE 01/20 0800 AC 01/20 INH 1218 Amlodipine Besylate 2.5 MG ONCE ONE 01/19 1915 DC 01/19 PO 01/19 1916 2047 Azithromycin 500 MG DAILY 01/20 1000 AC 01/20 PO 01/23 1001 0858 Azithromycin 500 MG DAILY 01/19 1653 DC 01/19 Sodium Chloride 250 ML IV 1729 Diltiazem HCl 240 MG DAILY 01/20 1000 DC PO Diltiazem HCl 240 MG DAILY 01/19 1800 AC 01/20 PO 0857 Furosemide 0 .STK-MED ONE 01/19 1659 DC PO Furosemide 20 MG DAILY 01/19 1632 AC 01/20 PO 0858 Heparin Sodium 5,000 UNIT Q8 01/19 2200 AC 01/20 (Porcine) SC 1312 Insulin Aspart 0 TIDAC 01/19 1700 AC 01/20 SC 1141 Lisinopril 0 .STK-MED ONE 01/19 1658 DC PO Lisinopril 10 MG DAILY 01/19 1632 AC 01/20 PO 0857 Lorazepam 0.5 MG AT BEDTIME PRN 01/19 1745 AC PO 01/26 1744 Methylprednisolone 40 MG Q12 01/20 1000 AC 01/20 IV 0858 Methylprednisolone 40 MG Q8 01/19 1652 DC 01/19 IV 01/19 2300 2248 Last 24 Hrs of Lab/Gilles Results Last 24 Hrs of Labs/Mics: Laboratory Tests 01/19/17 1609: Lactic Acid Cancelled Microbiology 01/19 1651 LOWER RESP: Respiratory Culture - COLB 01/19 1651 LOWER RESP: Gram Stain - COLB 01/19 1651 BLOOD: Blood Culture - CAN Cancelled: Cancelled via OE: Per MD Decision 01/19 165 BLOOD: Blood Culture - CAN Cancelled: Cancelled via OE: Per MD Decision Assessment/Plan Assessment: Patient is a 66-year-old female with significant past medical history of COPD not on home oxygen, obstructive sleep apnea on nighttime CPAP, pulmonary hypertension, diabetes mellitus, hypertension, HFpEF, anxiety presented with chief complaints of shortness of breath. Vital signs -temperature 97.7, pulse 87, respiratory rate 20, blood pressure 136 /74, SPO2 92% on room air Chest x-ray -No visible acute pulmonary process. Stable prominence of the cardiac silhouette, without overt pulmonary edema Plan - COPD acute exacerbation * We will follow pulmonary recommendation * We will keep head end of the bed elevated, oxygen inhalation to keep SPO2 more than 92% * We will continue IV Solu-Medrol 40 milligrams every 8 hourly * We'll continue inj azithromycin 500 milligrams for total 5 days * TRC/nebulization * We will follow echocardiogram LATOYA * We'll continue nocturnal CPAP History of fall with trauma to left knee/left elbow * We will follow the x-ray of knee and ankle to rule out any fracture Type 2 diabetes * Accu-Chek TID/HS * NovoLog according to the sliding scale Hypertension * We will continue tab diltiazem, amlodipine and lisinopril at home doses * If patient continued to have cough, we will stop lisinopril Diet- diabetic diet DVT prophylaxis-ALP S/heparin CODE STATUS-full code Problem List: 1. COPD EXACERBATION 2. SLEEP APNEA ON CPAP 3. MORBID OBESITY 4. Diabetes mellitus 5. Anxiety 6. Depression Pain Ratin Pain Location: Left elbow, left knee Pain Goal: Remain pain free Pain Plan: [id number] Tomorrow's Labs & Rationales: not required DVT/Prophylaxis: mechanical, pharmacological
--- NOTE | 2017-01-20 13:25 | PN- Pulmonary ---
Subjective HPI/Critical Care Issues: Little better afebrile has knee pain no sputum or wheezing Objective Current Medications: Current Medications Sig/Warren Start time Last Medication Dose Route Stop Time Status Admin Albuterol Sulfate 3 ML EVERY 4 HRS/AWAKE 01/20 0800 AC 01/20 INH 1218 Amlodipine Besylate 2.5 MG ONCE ONE 01/19 1915 DC / PO 01/19 1916 2047 Azithromycin 500 MG DAILY 01/20 1000 AC 01/20 PO 01/23 1001 0858 Azithromycin 500 MG DAILY 01/19 1653 DC 01/19 Sodium Chloride 250 ML IV 1729 Diltiazem HCl 240 MG DAILY 01/20 1000 DC PO Diltiazem HCl 240 MG DAILY 01/19 1800 AC 01/20 PO 0857 Furosemide 0 .STK-MED ONE 01/19 1659 DC PO Furosemide 20 MG DAILY 01/19 1632 AC 01/20 PO 0858 Furosemide 0 .STK-MED ONE 01/19 1329 DC IV Heparin Sodium 5,000 UNIT Q8 01/19 2200 AC 01/20 (Porcine) SC 1312 Insulin Aspart 0 TIDAC 01/19 1700 AC 01/20 SC 1141 Lisinopril 0 .STK-MED ONE 01/19 1658 DC PO Lisinopril 10 MG DAILY 01/19 1632 AC 01/20 PO 0857 Lorazepam 0.5 MG AT BEDTIME PRN 01/19 1745 AC PO 01/26 1744 Methylprednisolone 40 MG Q12 01/20 1000 AC 01/20 IV 0858 Methylprednisolone 40 MG Q8 01/19 1652 DC / IV / 2300 2248 Vital Signs & I&O Last 24 Hrs of Vitals and I&O: Vital Signs Date Time Temp Pulse Resp B/P B/P Pulse O2 O2 Flow FiO2 Mean Ox Delivery Rate 01/20 0857 88 138/72 / 0843 93 Room Air Room Air 01/20 0800 95 Nasal 1.5L Cannula 01/20 0647 97.7 87 20 136/74 92 01/20 0449 89 95 01/20 0448 94 Nasal 1.0L Cannula 01/20 0103 87 92 01/20 0000 Nasal 1.0L Cannula 01/19 2227 97.4 90 24 132/72 95 Nasal 1.0L Cannula 01/19 2222 Nasal 1.0L Cannula 01/19 2047 104 146/84 01/19 1900 93 Nasal 1.0L Cannula 01/19 1814 144/56 01/19 1706 101 187/77 01/19 1625 99.1 90 18 184/77 91 Nasal 1.0L Cannula 01/19 1522 99.1 101 18 171/70 92 Nasal 1.0L Cannula 01/19 1331 99 Aerosol 8L Mask Intake & Output 01/20 1600 01/20 0800 01/20 0000 Intake Total 240 Output Total 650 Balance -410 Intake, Oral 240 Output, Urine 650 Patient 220 lb Weight Weight Reported by Patient Measurement Method Impression/Plan Impression/Plan Impression/Plan: Physical Exam General Appearance Alert, Oriented X3, Cooperative, Mild Distress Skin No Rashes Skin Temp/Moisture Exam: Warm/Dry HEENT Atraumatic, PERRLA, EOMI, Mucous Membr. moist/pink Neck Supple, No JVD, No thryomegaly, +2 Carotid Pulse wo Bruit, No LAD Lymphatic Axillary nl, Cervical nl Cardiovascular Regular Rate, Normal S1, Normal S2, No Murmurs Lungs expiratory wheezes, bibasilar crackles Abdomen Normal Bowel Sounds, Soft, No Tenderness, No Hepatospenomegaly, No Masses, Distended Neurological Normal Speech, Strength at 5/5 X4 Ext, Normal Tone, Sensation Intact, Cranial Nerves 3-12 NL, Reflexes 2+ Extremities No Clubbing, No Cyanosis, No Edema, Normal Pulses, No Tenderness/ Swelling Vascular Normal Pulses, Pulses Symmetrical SIGNIFICANT DATA chest x-ray showed no significant pneumonia CT scan just done few weeks ago showed mild emphysema 6 mm lung nodule appears to be a lymph node some lymphadenopathy in the hilum multinodular goiter trace pericardial effusion Significant data reviewed white count 8.2 no significant left shift ABG reviewed from before she does have hypercarbia Previous for pulmonary function test showed 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 IMPRESSION This is a lady with significant COPD, previous respiratory failure, severe obstructive sleep apnea, heart failure with preserved ejection fraction in the past, ongoing dyspnea now with significant acute shortness of breath. Issues include * Worsening dyspnea most likely related to a combination of factors which include COPD exacerbation with no clinical evidence suggestive of infection with combination of acute diastolic heart failure * Pulmonary hypertension related to COPD, diastolic heart disease and obstructive sleep apnea * Hypertension and anxiety RECOMMENDATION * Continue steroids bid, and qd from am * [id number] nebulizer therapy * By mouth azithromycin * Po Lasix and diuresis * Repeat an echocardiogram to evaluate her diastolic heart disease, pulmonary hypertension, evaluation for pericardial effusion as well * If she does have a chronic cough lisinopril can be switched to losartan * Avoid high doses of benzo * Watch sugars * Cont cpap at 12 * Keep the blood pressure below 150 as she could have flash pulmonary edema
--- NOTE | 2017-01-20 13:47 | PN- Att Addend ---
Attending Addendum Attending Brief Note Patient seen and examined, feels almost the same. Still complains of some shortness of breath as well as wheezing. Patient is now complaining of pain in her right elbow as well as right knee. This has been going on for almost a month and she fell. She is able to move both joints but she says that those hurt. Vital Signs Date Time Temp Pulse Resp B/P B/P Pulse O2 O2 Flow FiO2 Mean Ox Delivery Rate 01/20 0857 88 138/72 01/20 0843 93 Room Air Room Air 01/20 0800 95 Nasal 1.5L Cannula 01/20 0647 97.7 87 20 136/74 92 01/20 0449 89 95 01/20 0448 94 Nasal 1.0L Cannula 01/20 0103 87 92 01/20 0000 Nasal 1.0L Cannula 01/19 2227 97.4 90 24 132/72 95 Nasal 1.0L Cannula 01/19 2222 Nasal 1.0L Cannula 01/19 2047 104 146/84 01/19 1900 93 Nasal 1.0L Cannula 01/19 1814 144/56 01/19 1706 101 187/77 / 1625 99.1 90 18 184/77 91 Nasal 1.0L Cannula 01/19 1522 99.1 101 18 171/70 92 Nasal 1.0L Cannula on exam; aox3, nad. cv; s1, s2, rrr resp; mild scattered wheeze abd; soft, nt, bs+ ext; no edema. Laboratory Tests 01/19 1609 Chemistry Lactic Acid Cancelled A/P: 66 y/o F with pmh sig for COPD not on home oxygen, LATOYA,HFpEF, admitted with acute COPD exacerbation as well as acute bronchitis. Patient also complains of right elbow and right knee pain and claims that they're swollen. She took a fall about a month when they have been hurting since then. She is able to move both joints. Continue steroids at present dose, continue TRC nebs. Next line continue to throw. Appreciate pulmonology input. Please obtain right elbow as well as right knee x-rays. DVT Px; Hep sq.
--- NOTE | 2017-01-20 14:53 | RADIOLOGY REPORT ---
EXAMINATION: XR ELBOW, LEFT. Left knee. CLINICAL INFORMATION: Fall with pain COMPARISON: Elbow study of December 22, 2016 TECHNIQUE: AP and lateral views of the left elbow. 4 views of the left knee FINDINGS: There is no evidence of acute fracture or dislocation of the left knee. No significant left knee effusion is appreciated. There is severe narrowing of the medial joint space compartment with marginal spurring and sclerosis. There is degenerative change of the patellofemoral joint with spurring present. A patella spur site of insertion quadriceps tendon is noted. Subcutaneous edema about the leg is present. AP and lateral views of the left elbow performed. No acute fracture or dislocation is evident. No elbow effusion is seen. There are again noted to be densities about the dorsum of the elbow and dorsum of the forearm unchanged from prior study. Triceps spur present about its insertion on the olecranon. Subcutaneous edema present. IMPRESSION: Severe degenerative joint disease medial compartment of the left knee with spurring undersurface of the patella and patellofemoral joint degenerative change. No acute fracture or effusion of the left elbow identified.
[2017-01-20 15:50] VITALS: BP 126/70
[2017-01-20 21:39] VITALS: BP 138/70
[2017-01-21 06:50] VITALS: BP 160/82
--- NOTE | 2017-01-21 08:11 | PN- Housestaff ---
NETO POLANCO 01/21/17 0810: Subjective Follow-up For: COPD exacerbation LATOYA on CPAP Complaints: pain scale (0-10) Subjective: Patient was seen and examined this morning. She is alert awake and oriented to time place and person. No acute events happened overnight. Patient reports ongoing cough associated with wheeze. Also reports sputum production which is clear. No bloody sputum. Reports difficulty breathing Denies any chest pain, racing of heart, fever or chills Vitals stable, afebrile, blood pressure 154/70, saturating at 93 on 1 L Review of Systems Constitutional: Denies: chills, diaphoresis, fever. Objective Last 24 Hrs of Vital Signs/I&O Vital Signs Date Time Temp Pulse Resp B/P B/P Pulse O2 O2 Flow FiO2 Mean Ox Delivery Rate 01/21 0829 84 154/78 01/21 0800 93 Nasal 1.0L Cannula 01/21 0757 93 Room Air 01/21 0650 97.3 87 20 160/82 93 01/21 0018 89 98 06/ 0000 CPAP 01/20 2230 86 98 / 2139 97.6 71 21 138/70 96 Nasal 1.0L Cannula 01/20 1625 97 Nasal 1.0L Cannula 01/20 1600 95 Nasal 1.5L Cannula 01/20 1550 97.1 65 20 126/70 93 Nasal 1.0L Cannula Intake & Output 01/21 1600 /04 0800 / 0000 Intake Total 120 480 Output Total Balance 120 480 Intake, Oral 120 480 Physical Exam General Appearance: Alert, Oriented X3, Cooperative, No Acute Distress Skin: No Rashes, No Breakdown HEENT: Atraumatic, PERRLA, EOMI Neck: No JVD Lymphatic: Cervical nl Cardiovascular: Normal S1, Normal S2 Lungs: wheezes b/l Abdomen: Normal Bowel Sounds, Soft, No Tenderness Vascular: Normal Pulses Current Medications: Current Medications Sig/Warren Start time Last Medication Dose Route Stop Time Status Admin Albuterol Sulfate 3 ML EVERY 4 HRS/AWAKE / 0800 AC 01/21 INH 0757 Azithromycin 500 MG DAILY 01/20 1000 AC 01/21 PO 06 1001 0829 Diltiazem HCl 240 MG DAILY 01/19 1800 AC 01/21 PO 0829 Furosemide 20 MG DAILY 01/19 1632 AC 01/21 PO 0829 Heparin Sodium 5,000 UNIT Q8 01/19 2200 AC 01/21 (Porcine) SC 0552 Insulin Aspart 0 TIDAC 01/19 1700 AC 01/21 SC 0750 Lisinopril 10 MG DAILY 01/19 1632 AC 01/21 PO 0829 Lorazepam 0.5 MG AT BEDTIME PRN 01/19 1745 AC PO 01/26 1744 Methylprednisolone 40 MG DAILY 01/21 1000 AC 01/21 IV 0900 Methylprednisolone 40 MG Q12 01/20 1000 DC 01/20 IV 2140 Assessment/Plan Assessment: Patient is a 66-year-old female with significant past medical history of COPD not on home oxygen, obstructive sleep apnea on nighttime CPAP, pulmonary hypertension, diabetes mellitus, hypertension, HFpEF, anxiety presented with chief complaints of shortness of breath. Vital signs -temperature 97.7, pulse 87, respiratory rate 20, blood pressure 136 /74, SPO2 92% on room air Chest x-ray -No visible acute pulmonary process. Stable prominence of the cardiac silhouette, without overt pulmonary edema Plan - COPD acute exacerbation * We will follow pulmonary recommendation * We will keep head end of the bed elevated, oxygen inhalation to keep SPO2 more than 92% * We will continue IV Solu-Medrol 40 milligrams every day * We'll continue inj azithromycin 500 milligrams for total 5 days * TRC/nebulization * We will follow echocardiogram LATOYA * We'll continue nocturnal CPAP History of fall with trauma to left knee/left elbow * x-ray of knee and ankle ruled out any fracture Type 2 diabetes * Accu-Chek TID/HS * NovoLog according to the sliding scale Hypertension * We will continue tab diltiazem, amlodipine and lisinopril at home doses * If patient continued to have cough, we will stop lisinopril Diet- diabetic diet DVT prophylaxis-ALP S/heparin CODE STATUS-full code Problem List: 1. COPD EXACERBATION Pain Ratin Pain Location: n/a Pain Goal: Remain pain free Pain Plan: tylinol Tomorrow's Labs & Rationales: none DONOVAN ANDINO MD 01/21/17 1337: Attending MD Review Statement Attending Statement Attending MD Statement: examined this patient, discuss w/resident/PA/INVOICE CLASSIFICATION CLERK, agreed w/resident/PA/INVOICE CLASSIFICATION CLERK, reviewed EMR data (avail), discussed with nursing, discussed with case mgmt, reviewed images, amended to note Attending Assessment/Plan: Patient seen and examined, feeling slightly better but not back to baseline yet. Still has some wheezing bilaterally on the lung exam. Agree with decreasing the Solu-Medrol to daily dosing. Next line continue TRC nebs. Elbow and knee x-ray shows arthritis but no acute fracture or effusion. Continue PO azithro. DVT Px: Hep sq. Possible DC in am.
--- NOTE | 2017-01-21 12:33 | PN- Pulmonary ---
Subjective HPI/Critical Care Issues: Sleeping early am when I saw her No new issues Objective Current Medications: Current Medications Sig/Warren Start time Last Medication Dose Route Stop Time Status Admin Albuterol Sulfate 3 ML EVERY 4 HRS/AWAKE 01/20 0800 AC 01/21 INH 1204 Azithromycin 500 MG DAILY 01/20 1000 AC 01/21 PO 01/23 1001 0829 Diltiazem HCl 240 MG DAILY 01/19 1800 AC 01/21 PO 0829 Furosemide 20 MG DAILY 01/19 1632 AC 01/21 PO 0829 Heparin Sodium 5,000 UNIT Q8 01/19 2200 AC 01/21 (Porcine) SC 0552 Insulin Aspart 0 TIDAC 01/19 1700 AC 01/21 SC 0750 Lisinopril 10 MG DAILY 01/19 1632 AC 01/21 PO 0829 Lorazepam 0.5 MG AT BEDTIME PRN 01/19 1745 AC PO 01/26 1744 Methylprednisolone 40 MG DAILY 01/21 1000 AC 01/21 IV 0900 Methylprednisolone 40 MG Q12 01/20 1000 DC 01/20 IV 2140 Vital Signs & I&O Last 24 Hrs of Vitals and I&O: Vital Signs Date Time Temp Pulse Resp B/P B/P Pulse O2 O2 Flow FiO2 Mean Ox Delivery Rate 01/21 1205 Nasal 2.0L Cannula 01/21 1100 93 Room Air Room Air 01/21 0829 84 154/78 01/21 0800 93 Nasal 1.0L Cannula 01/21 0757 93 Room Air 01/21 0650 97.3 87 20 160/82 93 01/21 0018 89 98 / 0000 CPAP 01/20 2230 86 98 01/20 2139 97.6 71 21 138/70 96 Nasal 1.0L Cannula 01/20 1625 97 Nasal 1.0L Cannula 01/20 1600 95 Nasal 1.5L Cannula 01/20 1550 97.1 65 20 126/70 93 Nasal 1.0L Cannula Intake & Output 01/21 1600 /04 0800 06 0000 Intake Total 120 480 Output Total Balance 120 480 Intake, Oral 120 480 Impression/Plan Impression/Plan Impression/Plan: Physical Exam General Appearance Alert, Oriented X3, Cooperative, Mild Distress Skin No Rashes Skin Temp/Moisture Exam: Warm/Dry HEENT Atraumatic, PERRLA, EOMI, Mucous Membr. moist/pink Neck Supple, No JVD, No thryomegaly, +2 Carotid Pulse wo Bruit, No LAD Lymphatic Axillary nl, Cervical nl Cardiovascular Regular Rate, Normal S1, Normal S2, No Murmurs Lungs expiratory wheezes, bibasilar crackles Abdomen Normal Bowel Sounds, Soft, No Tenderness, No Hepatospenomegaly, No Masses, Distended Neurological Normal Speech, Strength at 5/5 X4 Ext, Normal Tone, Sensation Intact, Cranial Nerves 3-12 NL, Reflexes 2+ Extremities No Clubbing, No Cyanosis, No Edema, Normal Pulses, No Tenderness/ Swelling Vascular Normal Pulses, Pulses Symmetrical SIGNIFICANT DATA chest x-ray showed no significant pneumonia CT scan just done few weeks ago showed mild emphysema 6 mm lung nodule appears to be a lymph node some lymphadenopathy in the hilum multinodular goiter trace pericardial effusion Significant data reviewed white count 8.2 no significant left shift ABG reviewed from before she does have hypercarbia Previous for pulmonary function test showed 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 IMPRESSION This is a lady with significant COPD, previous respiratory failure, severe obstructive sleep apnea, heart failure with preserved ejection fraction in the past, ongoing dyspnea now with significant acute shortness of breath. Issues include * Dyspnea most likely related to a combination of factors which include COPD exacerbation with no clinical evidence suggestive of infection with combination of acute diastolic heart failure * Pulmonary hypertension related to COPD, diastolic heart disease and obstructive sleep apnea * Hypertension and anxiety RECOMMENDATION * Prednisone 40 qd * [id number] nebulizer therapy * By mouth azithromycin * Po Lasix and diuresis * Repeat an echocardiogram to evaluate her diastolic heart disease, pulmonary hypertension, evaluation for pericardial effusion as well * If she does have a chronic cough lisinopril can be switched to losartan * Avoid high doses of benzo * Watch sugars * Cont cpap at 12 * Keep the blood pressure below 150 as she could have flash pulmonary edema Ok to be dcd
[2017-01-21 14:43] VITALS: BP 130/66
[2017-01-21 21:46] VITALS: BP 148/80
--- NOTE | 2017-01-22 05:22 | NUR ---
NURSE NOTE: BP 160/82. ELECTROENCEPHALOGRAPH TECHNICIAN MADE AWARE
[2017-01-22 06:48] VITALS: BP 160/82
--- NOTE | 2017-01-22 07:20 | PN- Housestaff ---
ADITI KNIGHT,CAMPBELL 01/22/17 0719: Subjective Follow-up For: Acute COPD exacerbation Complaints: pain the left knee, and elb elbow Subjective: Patient is seen and examined at the bedside. She was off oxygen saturating 95%. She was complaining of dry cough and pain in the left elbow and the left knee. We discussed about the degenerative joint disease, and advised her to follow-up with orthopedics for further management and treatment of it. Review of Systems Constitutional: Reports: no symptoms, weakness. Cardiovascular: Reports: no symptoms. Respiratory: Reports: cough, short of breath, sputum production, wheezing. Gastrointestinal: Denies: no symptoms. Genitourinary: Denies: no symptoms. Musculoskeletal: Reports: back pain, joint pain. Skin: Denies: no symptoms. Neurological/Psychological: Denies: no symptoms. Objective Last 24 Hrs of Vital Signs/I&O Vital Signs Date Time Temp Pulse Resp B/P B/P Pulse O2 O2 Flow FiO2 Mean Ox Delivery Rate 01/22 1006 98.5 73 20 160/82 06/ 0754 95 Room Air Room Air 06/ 0648 97.9 82 20 160/82 95 06/05 0531 Room Air 06/ 0023 89 93 06/05 0000 CPAP 06/ 0000 93 CPAP / 2253 80 94 / 2146 98.2 73 21 148/80 94 Room Air Intake & Output / 1600 06/05 0800 06/05 0000 Intake Total 240 1080 Output Total 500 Balance 240 580 Intake, Oral 240 1080 Number 1 Bowel Movements Output, Urine 500 Physical Exam General Appearance: Alert, Oriented X3, Cooperative, No Acute Distress Cardiovascular: Normal S1, Normal S2 Lungs: bilateral basilar crackles and occasional wheezing Abdomen: Soft, No Tenderness Neurological: Normal Speech Extremities: No Clubbing, No Cyanosis, No Edema Vascular: Normal Pulses, Pulses Symmetrical Current Medications: Current Medications Sig/Warren Start time Last Medication Dose Route Stop Time Status Admin Albuterol Sulfate 3 ML EVERY 4 HRS/AWAKE / 0800 DCD 06/05 INH 1216 Azithromycin 500 MG DAILY 01/22 1000 DCD 06/05 PO 1006 Diltiazem HCl 240 MG DAILY 01/19 1800 DCD 06/05 PO 1005 Furosemide 20 MG DAILY 01/19 1632 DCD 06/05 PO 1005 Heparin Sodium 5,000 UNIT Q8 01/19 2200 DCD 01/22 (Porcine) SC 0515 Insulin Aspart 0 TIDAC 01/19 1700 DCD 01/21 SC 0750 Lisinopril 10 MG DAILY 01/19 1632 DCD 01/22 PO 1006 Lorazepam 0.5 MG AT BEDTIME PRN 01/19 1745 DCD PO 01/26 1744 Patient Medication 1 ED .STK-MED ONE 01/22 1408 NE Teaching ED 01/22 1409 Prednisone 40 MG DAILY 01/22 1000 DCD 01/22 PO 1005 Assessment/Plan Assessment: Patient is a 66-year-old female with significant past medical history of COPD not on home oxygen, obstructive sleep apnea on nighttime CPAP, pulmonary hypertension, diabetes mellitus, hypertension, HFpEF, anxiety presented with chief complaints of shortness of breath. Vital signs -stable except blood pressure was 168/80. Chest x-ray -No visible acute pulmonary process. Stable prominence of the cardiac silhouette, without overt pulmonary edema Plan - Discharge today COPD acute exacerbation * We stop Solu-Medrol and started patient on prednisone 40 milligrams once a day and we will stop her every third day, but the milligrams for 3 days, 30 milligrams for 3 days, 20 milligrams for 3 days, 10 milligrams for 3 days and 5 milligrams for 3days. He advised her to follow-up with Dr. Yi within a week of discharge. * We will give 1 more days of tablet azithromycin 500 milligrams OD for total 5 days LATOYA * We'll continue nocturnal CPAP History of fall with trauma to left knee/left elbow * x-ray of knee and ankle does not show any signs of fracture, but they showed signs of old degenerative changes * Advised to follow-up with orthopedics for further management Type 2 diabetes * Advised to take metformin as before Hypertension * We will continue tab diltiazem, amlodipine and lisinopril at home doses Diet- diabetic diet DVT prophylaxis-ALP S/heparin CODE STATUS-full code Problem List: 1. Osteoarthritis 2. Depression 3. Diabetes mellitus 4. COPD exacerbation 5. SLEEP APNEA ON CPAP Pain Ratin Pain Location: Left knee and left elbow Pain Goal: Remain pain free Pain Plan: [id number] Tomorrow's Labs & Rationales: Not required as patient is leaving DVT/Prophylaxis: mechanical, pharmacological SINA KNIGHT,DONOVAN 01/22/17 1501: Attending MD Review Statement Attending Statement Attending MD Statement: examined this patient, discuss w/resident/PA/COMPLIANCE ADVISOR, agreed w/resident/PA/COMPLIANCE ADVISOR, reviewed EMR data (avail), discussed with nursing, discussed with case mgmt, reviewed images Attending Assessment/Plan: Patient can examined, overall doing much better. Not requiring any oxygen now. She has been switched to oral prednisone as well as oral azithromycin. She is medically stable for discharge today. She will follow-up with her primary care doctor, Dr. Garnica, orthopedic as an outpatient for osteoarthritis.
--- NOTE | 2017-01-22 08:32 | Patient Discharge Instructions ---
Discharge Instructions General Discharge Information You were seen/treated for: Acute shortness of breath due to acute exacerbation of COPD Special Instructions: please follow up with your actuarial internship with in a week of discharge. please follow up with your PCP with in a week of discharge. Please follow-up with orthopedics within a week of discharge for further evaluation and management of degenerative joint disease Diet Continue normal diet: No Recommended Diet: Diabetic Acute Coronary Syndrome Inclusion Criteria At DC or during hospital stay patient has or had the following: ACS DIAGNOSIS No Discharge Core Measures Meds if any: Prescribed or Continued at Discharge Meds if any: NOT Prescribed or Continued at Discharge Congestive Heart Failure Inclusion Criteria At DC or during hospital stay patient has or had the following: CHF DIAGNOSIS No Discharge Core Measures Meds if any: Prescribed or Continued at Discharge Meds if any: NOT Prescribed or Continued at Discharge Cerebrovascular accident Inclusion Criteria At DC or during hospital stay patient has or had the following: CVA/TIA Diagnosis No Discharge Core Measures Meds if any: Prescribed or Continued at Discharge Meds if any: NOT Prescribed or Continued at Discharge Venous thromboembolism Inclusion Criteria VTE Diagnosis No VTE Type NONE VTE Confirmed by (Test) NONE Discharge Core Measures - Per Current guidelines, there needs to be overlap - treatment for the first 5 days of Warfarin therapy. - If discharged on Warfarin prior to 5 days of - overlap therapy, the patient will need to be - assessed for post discharge needs including - *Post discharge parental anticoagulation - *Warfarin and/or parental anticoagulation education - *Follow up date to check INR post discharge At least 5 days overlap therapy as Inpatient No Meds if any: Prescribed or Continued at Discharge Warfarin No Note: Overlap Therapy is Warfarin and Anticoagulant Meds if any: NOT Prescribed or Continued at Discharge
[2017-01-22 10:06] VITALS: BP 160/82
[2017-01-22] MEDS ORDERED: AZITHROMYCIN500 M3 PO (10:06)
[2017-01-22] MEDS ORDERED: PREDNISONE10 M2 PO (10:06)
[2017-01-22] MEDS ORDERED: TYLENOL EXTRA500 M2 PO (10:28)
--- NOTE | 2017-01-22 13:28 | Discharge Summary ---
Visit Information Visit Dates Admission Date: 01/19/17 Discharge Date: 01/22/17 Hospital Course Course Attending Physician: Donovan Durbin MD Primary Care Physician: MARIETTA SANTIAGO Hospital Course: Patient is a 66-year-old female with significant past medical history of hypertension, hyperlipidemia, diabetes mellitus,HFpEF, anxiety, COPD not on home oxygen, obstructive sleep apnea on nighttime CPAP, pulmonary hypertension, presented with chief complaints of shortness of the breath. Vital signs at the time of admission-temperature 98.7, pulse 88, respiratory rate 22, blood pressure 168/96, SPO2 99% on room air Chest x-ray -No visible acute pulmonary process. Stable prominence of the cardiac silhouette, without overt pulmonary edema COPD with acute exacerbation and pulmonary hypertension We admitted the patient on general medical floor and treated on the line of COPD acute exacerbation by giving nebulization,IV Solu-Medrol and azithromycin initially, followed by prednisone and azithromycin orally. Patient responded well and we discharge her on tablet prednisone 40 milligrams for 1 day, 30 milligrams for 3 days, 20 milligrams for 3 days, 10 milligrams for 2 days, 5 milligrams for 3 days. We advised her to follow-up with as an outpatient for further management of COPD. The advised her to follow-up with COPD rehabilitation program. Obstructive sleep apnea on CPAP We continued CPAP as before Left knee and elbow pain secondary to osteoarthritis/degenerative joint disease We did knee and elbow x-ray, which showed Severe degenerative joint disease in medial compartment of the left knee with spurring undersurface of the patella and patellofemoral joint degenerative changes. There was no any signs of acute fracture. We treated her symptomatically with Tylenol and advised to follow-up with orthopedics as an outpatient for further management of degenerative joint disease Chronic smoking We counseled her for quitting smoking and advised her to join [facility] outpatient smoking cessation program. Allergies: Coded Allergies: NO KNOWN ALLERGIES (11/27/14) Disposition Summary Disposition Principal Diagnosis: COPD acute exacerbation Additional Diagnosis: Obstructive sleep apnea on CPAP Morbid obesity Degenerative joint disease Discharge Disposition: home health services Discharge Instructions General Discharge Information Code Status: Full Code Patient's Diet: Heart healthy, diabetic, weight loss diet Patient's Activity: As tolerated Follow-Up Instructions/Appts: Advised to follow-up with your PCP within a week of discharge Advised to follow-up with your pin worker within a week of discharge Advised to follow-up with orthopedics for further evaluation and management of degenerative joint disease. Medications at Discharge Discharge Medications: Continue taking these medications: Magnesium Oxide (Magnesium Oxide) 400 MG TABLET 1 Tablet ORAL DAILY as needed for SUPPLEMENT Comments: NOT GIVEN IN HOSPITAL Fluticasone/Vilanterol (Breo Ellipta 100-25 Mcg INH) 100 MCG-25 MCG/DOSE BLST.W.DEV 1 PUFF ORAL DAILY Comments: NOT GIVEN IN HOSPITAL Lisinopril (Lisinopril) 10 MG TABLET 1 Tablet ORAL DAILY Days = 90 Comments: Last Taken: 01/22/17 Time: 1000 Escitalopram Oxalate (Lexapro) 10 MG TABLET 1 Tablet ORAL DAILY Comments: NOT GIVEN IN HOSPITAL Potassium Chloride (Klor-Con M10) 10 MEQ TAB.ER.PRT 1 Tablet ORAL DAILY Days = 90 Comments: NOT GIVEN IN HOSPITAL Furosemide (Furosemide) 20 MG TABLET 1 Tablet ORAL DAILY Days = 90 Comments: Last Taken: 01/22/17 Time: 1000 Metformin HCl (Metformin HCl) 500 MG TABLET 1 Tablet ORAL TWICE DAILY Days = 90 Comments: NOT GIVEN IN HOSPITAL Diltiazem HCl (Diltiazem ER) 240 MG CAP.ER.DEG 1 Capsule ORAL Every Day Days = 90 Comments: Last Taken: 01/22/17 Time: 1000 Albuterol Sulfate (Albuterol Sulfate) 2.5 MG/3 ML (0.083 %) VIAL.NEB 1 Vial Inhale Solution THREE TIMES DAILY Comments: Last Taken: 01/22/17 Time: 1200 Albuterol Sulfate (Proventil Hfa) 90 MCG HFA.AER.AD 2 Puff Inhale through mouth Every 4 hours as needed for SHORTNESS OF BREATH Comments: NOT GIVEN IN HOSPTAL Ipratropium Garland (Ipratropium Garland) 0.2 MG/ML (0.02 %) SOLUTION 1 Vial Inhale Solution THREE TIMES DAILY Comments: Last Taken: 01/22/17 Time: 1200 Lorazepam (Ativan) 0.5 MG TABLET 1 Tablet ORAL Every night as needed as needed for ANXIETY Comments: N OT GIVEN IN HOSPITAL Alendronate Sodium (Alendronate Sodium) 35 MG TABLET 1 Tablet ORAL EVERY SUNDAY Instructions: At least 30 min before any food/beverage or medication. Comments: NOT GIVEN IN HOSPITAL Start taking the following new medications: Azithromycin (Azithromycin) 500 MG TABLET 500 Milligram ORAL DAILY Qty = 1 No Refills Prednisone (Prednisone) 10 MG TABLET 1 Tablet ORAL See Instructions Qty = 25 No Refills Instructions: 10MG 4TAB ONCE A DAY X 1DAY (01/23/2017) 10MG 3TAB ONCE A DAY X 3DAYS (01/24/2017 -01/26/2017) 10MG 2TAB ONCE A DAY X 3DAYS (01/27/2017 - 01/29/2017) 10MG 1TAB ONCE A DAY X 3DAYS (01/30/2017 - 02/01/2017) 10MG 0.5TAB ONCE A DAY X 3DAYS(02/02/2017 - 02/04/2017) THEN STOP Acetaminophen (Tylenol Extra Strength) 500 MG TABLET 1 Tablet ORAL EVERY 6 HOURS NEEDED as needed for KNEE PAIN Qty = 10 No Refills Copies To: KEVYN KNIGHT,[facility].; UZAIR KNIGHT,Sindy ZHENG; MARIETTA SANTIAGO Attending Review Statement Documenting Attending: SINA KNIGHT,DONOVAN
--- NOTE | 2017-01-25 09:08 | ECHOCARDIOGRAM REPORT ---
ODALIS ONEAL Age: 66 : 1950 Gender: F Exam Date: 01/21/2017 11:23 Exam Location: [address] [place] [address] Ht (in): 60 Wt (lb): 220 BSA: 2.12 BP: 160 / 82 Ordering Physician: REYES MARTINEZ, Referring Physician: Abdirahman Servin MD Technologist: Raquel Hector [facility] Room Number: 214 Indications: HEART FAILURE Rhythm: Sinus Technical Quality: Technically difficult study FINDINGS Left Ventricle Normal size left ventricle. Mild concentric left ventricular hypertrophy. Normal left ventricular ejection fraction visually estimated at >60%. Normal left ventricular wall motion. Right Ventricle Normal right ventricular size and function. Right Atrium Normal right atrial size. Left Atrium Normal left atrial size. Mitral Valve Moderate mitral annular calcification. Mild mitral regurgitation. Aortic Valve Aortic valve mildly thickened. No aortic stenosis. No aortic regurgitation. Tricuspid Valve Tricuspid valve not well visualized, grossly normal. Trace tricuspid regurgitation. Pulmonic Valve Pulmonic valve not well visualized, grossly normal. Pericardium No pericardial effusion. Great Vessels Normal size aortic root. CONCLUSIONS Normal size left ventricle. Mild concentric left ventricular hypertrophy. Normal left ventricular ejection fraction visually estimated at > 60%. Mild mitral regurgitation. Trace tricuspid regurgitation. Abdirahman Servin M.D. (Electronically Signed) Final Date: 22 January 2017 09:08 Amended: 23 January 2017 12:08 MEASUREMENTS (Male / Female) Normal Values 2D ECHO LV Diastolic Diameter PLAX 4.5 cm 4.2 - 5.9 / 3.9 - 5.3 cm LV Systolic Diameter PLAX 2.9 cm 2.1 - 4.0 cm LV Fractional Shortening PLAX 35.6 % 25 - 46 % LV Ejection Fraction 2D Teich 65.2 % IVS Diastolic Thickness 1.2 cm LVPW Diastolic Thickness 1.2 cm LV Relative Wall Thickness 0.5 RV Internal Dim ED PLAX 2.6 cm 1.9 - 3.8 cm LVOT Diameter 1.9 cm Aortic Root Diameter 2.6 cm LA Systolic Diameter LX 4.0 cm 3.0 - 4.0 / 2.7 - 3.8 cm Ascending Aorta Diameter 3.2 cm DOPPLER AV Peak Velocity 149.0 cm/s AV Peak Gradient 8.9 mmHg AV Mean Velocity 112.0 cm/s AV Mean Gradient 6.0 mmHg AV Velocity Time Integral 31.5 cm LVOT Peak Velocity 109.0 cm/s LVOT Peak Gradient 4.8 mmHg LVOT Mean Velocity 65.0 cm/s LVOT Mean Gradient 2.0 mmHg LVOT Velocity Time Integral 22.1 cm LVOT Stroke Volume 62.7 cm AV Area Cont Eq vti 2.0 cm AV Area Cont Eq pk 2.1 cm MV Peak Velocity 138.0 cm/s MV Peak Gradient 7.6 mmHg MV Mean Velocity 91.3 cm/s MV Mean Gradient 4.0 mmHg Mitral E Point Velocity 121.0 cm/s Mitral A Point Velocity 117.0 cm/s Mitral E to A Ratio 1.0 MV PHT Velocity 144.0 cm/s MV Deceleration Lanier 439.0 cm/s MV Pressure Half Time 98.4 ms MV Area PHT 2.2 cm MV Deceleration Time 238.0 ms LV E' Lateral Velocity 8.0 cm/s Mitral E to LV E' Lateral Ratio 15.1 LV E' Septal Velocity 6.3 cm/s Mitral E to LV E' Septal Ratio 19.1
[2017-02-04] MEDS ORDERED: MEDROL4 M2 PO (19:17)
== END 2017-01-22 13:30 | disposition home health service (06) | DRG 191 ==
LOC: ERH 13:04 → ERHI 14:33 → 2NB 14:33 → ENRESERV 16:05 → ENTRNSPT 18:20 → 2NB 18:40 → CMPTRNSPT 01-21 09:38 → ENPENDDIS 01-22 11:09 → 2NB 01-22 13:30
PROVIDERS: Emergency Medicine; ADMIT Internal Medicine
DX: J44.1 Chronic obstructive pulmonary disease with (acute) exacerbation (principal); I11.0 Hypertensive heart disease with heart failure; I50.30 Unspecified diastolic (congestive) heart failure; I27.2 Other secondary pulmonary hypertension; Z68.41 Body mass index [BMI] 40.0-44.9, adult; E66.01 Morbid (severe) obesity due to excess calories; J44.0 Chronic obstructive pulmonary disease with (acute) lower respiratory infection; G47.33 Obstructive sleep apnea (adult) (pediatric); E11.9 Type 2 diabetes mellitus without complications; Z79.4 Long term (current) use of insulin; J20.9 Acute bronchitis, unspecified; F17.200 Nicotine dependence, unspecified, uncomplicated; F41.9 Anxiety disorder, unspecified; E78.5 Hyperlipidemia, unspecified; M17.12 Unilateral primary osteoarthritis, left knee; M19.022 Primary osteoarthritis, left elbow
CPT/HCPCS: 2NBP; 73070-LT; 73562-LT; 87040; 87070; 93005; 93010; 94644; C8929; J0456; J1644; J1940; J2920; J7040; Q9957

== ENCOUNTER 2017-10-02 04:59 | Inpatient (IN) | payer OTHER, MEDICARE ==
[~2017-10-02] VITALS: Ht 157.5 cm; Wt 90.7 kg
[~2017-10-02 04:59] MED LIST changes: +ADVIL LIQUI-GE200 M1 PO; +ALENDRONATE SOD35 M2 PO; +AZITHROMYCIN500 M3 PO; +BACTRIM DS TAB1 EACH PO; +BREO ELLIPTA 21 EACH INH; +CICLOPIROX15 GM TOP; +DIFLUCAN150 M1 PO; +FLUCONAZOLE100 M1 PO; +FUROSEMIDE40 M1 PO; +MEDROL4 M2 PO; +NYSTATIN15 G2 TOP; +PREDNISONE10 M2 PO; +TYLENOL EXTRA500 M2 PO; +ULTRAM50 M1 PO; +VENTOLIN HFA18 GM INH; +VOLTAREN100 GM TOP
--- NOTE | 2017-10-02 05:03 | ED MVC/FALL/TRAUMA COMPLAINT ---
See Addendum History of Present Illness General Chief Complaint: Fall Stated Complaint: ROLLED OUT OF BED IN HER SLEEP Source: patient Exam Limitations: no limitations Vital Signs & Intake/Output Vital Signs & Intake/Output Vital Signs Date Time Temp Pulse Resp B/P B/P Pulse O2 O2 Flow FiO2 Mean Ox Delivery Rate 10/02 914 98.0 100 20 140/80 96 Room Air 10/02 0659 97.3 107 20 144/82 98 10/02 0617 97 10/02 0510 97 Room Air Room Air 10/02 0501 96.5 110 20 166/86 96 Room Air Allergies Coded Allergies: NO KNOWN ALLERGIES (11/27/14) Reconcile Medications Albuterol Sulfate 2.5 MG/3 ML (0.083 %) VIAL.NEB 1 Vial INH/JUAN R Q4H RESPIRATORY (Reported) Albuterol Sulfate (Ventolin Hfa) 90 MCG HFA.AER.AD 2 PUF INH AD PRN ASTHMA/ COPD (Reported) Alendronate Sodium 35 MG TABLET 1 TAB PO QSUN Bone (Reported) At least 30 min before any food/beverage or medication. Ciclopirox Olamine (Ciclopirox) 0.77 % CREAM..G. 1 AMPARO TOP BID PRN SKIN RASH apply to affected area(s) Diclofenac Sodium (Voltaren) 1 % GEL..GRAM. 1 AMPARO TOP AD PRN PAIN (Reported) apply to affected area(s) Diltiazem HCl (Diltiazem ER) 240 MG CAP.ER.DEG 1 CAP PO D HEART HEALTH ( Reported) Escitalopram Oxalate (Lexapro) 10 MG TABLET 1 TAB PO DAILY DEPRESSION ( Reported) Fluconazole 100 MG TABLET 1 TAB PO DAILY ANTIBIOTIC, INFECTION (Reported) Fluticasone/Vilanterol (Breo Ellipta 200-25 Mcg INH) 200 MCG-25 MCG/DOSE BLST.W.DEV 1 PUFF INH DAILY ASTHMA/COPD (Reported) Furosemide 40 MG TABLET 1 TAB PO DAILY DIURETIC (Reported) Ibuprofen (Advil Liqui-Gels) 200 MG CAPSULE 2 CAP PO PRN PAIN/INFLAMMATION ( Reported) Ipratropium [place] 0.2 MG/ML (0.02 %) SOLUTION 1 Vial INH/JUAN R Q4H RESPIRATORY (Reported) Lisinopril 10 MG TABLET 1 TAB PO DAILY HIGH BLOOD PRESSURE (Reported) Lorazepam (Ativan) 0.5 MG TABLET 1 TAB PO QPMP PRN ANXIETY (Reported) Magnesium Oxide 400 MG TABLET 1 TAB PO DAILY PRN SUPPLEMENT (Reported) Metformin HCl 500 MG TABLET 1 TAB PO BID DIABETES (Reported) Nystatin 100,000 UNIT/GRAM POWDER 1 AMPARO TOP DAILY ANTIBIOTIC, INFECTION ( Reported) Potassium Chloride (Klor-Con M10) 10 MEQ TAB.ER.PRT 1 TAB PO DAILY HEALTH SUPPLEMENT (Reported) Sulfamethoxazole/Trimethoprim (Bactrim Ds Tablet) 800 MG-160 MG TABLET 1 TAB PO BID Cellulitis Tramadol HCl (Ultram) 50 MG TABLET 1 TAB PO Q6P PRN PAIN Triage Nurses Notes Reviewed? yes Onset: Abrupt Duration: minute(s): Timing: single episode today Severity: moderate Injuries/Fall Location: upper extremity, pelvis, lower extremity Method of Injury: fall Loss of Consciousness: no loss of consciousness Modifying Factors: Improves With: rest. Worsens With: movement, palpation. Associated Symptoms: mild dyspnea HPI: 67 yo woman h/o copd presents after a fall where she rolled out of bed onto the floor. She reports pain in her right hand, left hip pain, bilateral knee pain. She did not hit her head. She did not lose consciousness. She reports mild dyspnea and cough. She was unable to get up by herself. 911 called. Her vitals were stable en route. (Libertad KNIGHT,Neeraj Balderas) Past History Travel History Traveled to [place] past 21 day No Medical History Any Pertinent Medical History? 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 No (Libertad KNIGHT,Neeraj Balderas) Review of Systems Review of Systems Constitutional: Reports: no symptoms. Eyes: Reports: no symptoms. Ears, Nose, Throat, Mouth: Reports: no symptoms. Respiratory: Reports: no symptoms. Cardiovascular: Reports: no symptoms. Gastrointestinal/Abdominal: Reports: no symptoms. Genitourinary: Reports: no symptoms. Musculoskeletal: Reports: no symptoms. Skin: Reports: no symptoms. Neurological/Psychological: Reports: no symptoms. All Other Systems: Reviewed and Negative (Libertad KNIGHT,Neeraj Balderas) Physical Exam Physical Exam General Appearance: well developed/nourished, mild distress Head: atraumatic, normal appearance Eyes: Bilateral: normal appearance. Ears, Nose, Throat, Mouth: hearing grossly normal, moist mucous membrane Neck: normal inspection, supple, full range of motion Respiratory: no respiratory distress, wheezing Cardiovascular: regular rate/rhythm Gastrointestinal: normal bowel sounds, soft, non-tender Back: normal inspection Extremities: 2+ non pitting edema, left hip, mild tenderness to palpation, bilateral knee diffuse tenderness. no deformity, mild effusion on left. ligaments stable. Neurologic/Psych: no motor/sensory deficits, awake, alert, oriented x 3 Skin: intact, normal color, warm/dry Core Measures ACS in differential dx? No CVA/TIA Diagnosis No Sepsis Present: No Sepsis Focused Exam Completed? No (Libertad KNIGHT,Neeraj Balderas) Progress Differential Diagnosis: C/T/L spine injury, ext injury, ICH, pelvis injury Plan of Care: Orders Procedure Date/time Status PROTHROMBIN TIME 10/03 0600 Active CBC WITHOUT DIFFERENTIAL 10/03 0600 Active BASIC ELECTROLYTES PLUS BUN&CR 10/03 0600 Active Consistent Carbohydrate 3 10/02 L Active TRC EVALUATION (GEN) 10/02 1100 Active PT Evaluate & Treat 10/02 1100 Active Pathway - chart 10/02 1100 Active House Staff 10/02 1100 Active Code Status 10/02 1100 Active Patient Data 10/02 1035 Active Durable Medical Equipment 10/02 1017 Active OXYGEN SETUP (GEN) 10/02 1016 Active Saline Lock 10/02 1016 Active Admit to inpatient 10/02 1016 Active Vital Signs 10/02 1016 Active Activity/Ambulation 10/02 1016 Active Code Status 10/02 1016 Complete PT Evaluate & Treat 10/02 0710 Active CASE MANAGEMENT CONSULT 10/02 0710 Active BLOOD CULTURE 10/02 0510 Active RAPID VIRAL INFLUENZA A 10/02 0509 Complete BLOOD CULTURE 10/02 0509 Active TROPONIN LEVEL 10/02 0505 Complete LIPASE 10/02 0505 Complete HEPATIC FUNCTION PANEL 10/02 0505 Complete CBC WITHOUT DIFFERENTIAL 10/02 0505 Complete BASIC METABOLIC PANEL 10/02 0505 Complete AMYLASE 10/02 0505 Complete EKG 10/02 0505 Active VTE Mechanical Prophylaxis 10/02 UNK Active Intake & Output 10/02 UNK Active FingerStick- Glucose 10/02 UNK Active Current Medications Sig/Warren Start time Last Medication Dose Stop Time Status Admin Alendronate Sodium 70 MG QTUES 10/09 0700 UNVr (Fosamax) Enoxaparin Sodium 40 MG DAILY 10/03 1000 UNVr (Lovenox) Escitalopram Oxalate 10 MG DAILY 10/03 1000 UNVr (Lexapro) Furosemide 40 MG DAILY 10/03 1000 UNVr (Lasix) Lisinopril 10 MG DAILY 10/03 1000 UNVr (Prinivil) Nystatin 1 AMPARO BID 10/02 2200 UNVr (Mycostatin) Insulin Aspart 0 TIDAC 10/02 1200 UNVr (NovoLOG) Albuterol Sulfate 3 ML Q4H 10/02 1115 UNVr (Proventil) Albuterol Sulfate 2 PUF .[AD] PRN 10/02 1115 UNVr (Ventolin) Diclofenac Sodium 1 AMPARO .[AD] PRN 10/02 1115 UNVr (Voltaren 1% Gel) Ipratropium [place]ur 2.5 ML Q4H 10/02 1115 UNVr (Atrovent) Lorazepam 0.5 MG .[QPMP] PRN 10/02 1115 UNVr (Ativan) 10/09 1114 Magnesium Oxide 400 MG DAILY PRN 10/02 1115 UNVr (Mag-Ox) Tramadol HCl 50 MG Q6P PRN 10/02 1115 UNVr (Ultram) Budesonide/ 2 PUF BID 10/02 1103 UNVr Formoterol Fumarate (Symbicort) Diltiazem HCl 240 MG DAILY 10/02 1102 UNVr (Cardizem CD) Acetaminophen 1,000 MG Q8H 10/02 1100 UNVr (Ofirmev) 10/03 1114 N/A 1 UNIT (No Carrier) Ketorolac 15 MG Q6P PRN 10/02 1100 UNVr Tromethamine (Toradol) Sodium Chloride 1,000 ML DAILY 10/02 1056 UNVr (Normal Saline 0.9%) 10/03 2319 Laboratory Tests 10/02/17 0515: Anion Gap 11, Estimated GFR > 60, BUN/Creatinine Ratio 13.8, Glucose 107 H, Calcium 9.4, Total Bilirubin 0.4, Direct Bilirubin 0.2, AST 15, ALT 34, Alkaline Phosphatase 97, Troponin I < 0.01, Total Protein 7.0, Albumin 4.0, Amylase 37, Lipase 101, CBC w Diff NO MAN DIFF REQ, RBC 4.84, MCV 82.4, MCH 26.8 L, MCHC 32.5 L, RDW 16.8 H, MPV 7.0 L, Gran % 73.3, Lymphocytes % 16.3 L, Monocytes % 7.7, Eosinophils % 2.5, Basophils % 0.2, Absolute Granulocytes 6.2, Absolute Lymphocytes 1.4, Absolute Monocytes 0.7 H, Absolute Eosinophils 0.2, Absolute Basophils 0 Microbiology 10/02 05 BLOOD: Blood Culture - RECD 10/02 514 BLOOD: Blood Culture - RECD 10/02 005 NASOPHARYN: Influenza Virus A & B Rapid Smear - COMP Diagnostic Imaging: Viewed by Me: Radiology Read, CT Scan. Discussed w/RAD: Radiology Read, CT Scan. Radiology Impression: PATIENT: ODALIS ONEAL PRESENT AGE: 67 PATIENT ACCOUNT NO: [id number] : 48 LOCATION: [facility] ORDERING PHYSICIAN: Neeraj Maurer MD SERVICE DATE: 10/02/17 EXAM TYPE: RAD - XRY-AP PELVIS; XRY-CHEST XRAY, SINGLE VIEW; XRY-HAND, RIGHT; XRY-HIP 2-3 VIEWS, LEFT; XRY-KNEE, LEFT; XRY-KNEE, RIGHT; XRY-WRIST 2 VIEWS RIGHT EXAMINATION: XR CHEST XR PELVIS XR WRIST, RIGHT XR HAND, RIGHT XR HIP, LEFT XR KNEE, LEFT XR KNEE, RIGHT CLINICAL INFORMATION: Fall, pain, dyspnea COMPARISON: Multiple priors, most recent chest x-ray 06/10/2017 TECHNIQUE: AP view of the chest. AP view of the pelvis. 2 views of the right wrist. 3 views of the right hand. 2 views of the left hip. 2 views of the left knee. 2 views of the right knee. FINDINGS: Chest: Lung volumes are symmetric. No focal consolidation is seen. No evidence of pneumothorax, significant pleural effusion, or pulmonary edema. The cardiac silhouette appears enlarged, similar to prior. Calcification is present at the aortic arch. No displaced fracture is seen. Pelvis/left hip: Alignment across the hips appears anatomic with mild degenerative change. No acute fracture is seen. The sacroiliac joints appear intact. Right wrist/hand: Alignment across the wrist is anatomic. There is mild to moderate degenerative change at the first carpometacarpal articulation. There is a slightly displaced fracture at the proximal shaft of the fourth metacarpal; intra-articular extension cannot be excluded radiographically. Articular alignment throughout the hand is anatomic. There are scattered degenerative changes of the interphalangeal joints. Left knee: Assessment is somewhat limited due to suboptimal positioning. Alignment appears maintained. Tricompartmental joint space narrowing is suspected along with mild osteophytosis. No acute fracture is identified. A trace effusion is suspected. Right knee: Alignment appears anatomic. There is moderate narrowing of the medial joint space. No acute fracture is seen. No significant effusion. IMPRESSION: 1. Chest: No acute findings identified. 2. Pelvis/left hip: No acute findings identified. Degenerative changes of the hips. 3. Right wrist/hand: Slightly displaced fracture at the proximal shaft of the fourth metacarpal. Degenerative changes. 4. Left knee: Trace effusion. Degenerative changes. 5. Right knee: No acute findings identified. Degenerative changes. DICTATED BY: Fernando Maldonado MD DATE/ TIME DICTATED:10/02/17612 COLLAR SEWER:BETY DATE/TIME TRANSCRIBED: 10/02/17612 CONFIDENTIAL, DO NOT COPY WITHOUT APPROPRIATE AUTHORIZATION. < Electronically signed in Other Vendor System> SIGNED BY: Fernando Madlonado MD 10/02/17628 Initial ED EKG: sinus tach, no acute changes. Hand-Off Endorsed To: Jv Taylor MD Endorsed Time: 0700 Pending: consult, other (pt/case management) (Libertad KNIGHT,Neeraj Balderas) Radiology Impression: 1. No evidence for acute intracranial injury. 2. No acute fracture or traumatic malalignment of the cervical spine. 3. Right lobe of the thyroid gland is markedly enlarged containing coarse calcifications. This could be further evaluated with nonemergent thyroid ultrasound. Comments: PT eval suggests STR. Case management review IP for placement (Jv Taylor MD) Departure Departure Condition: Stable Referrals: Nery Cooper APRN (PCP/Family) Departure Forms: Customer Survey General Discharge Information Comments 10/01/17, 5:30am.... pt with mild wheeze/dyspnea, stable on room air... will treat with oral abx/steroids, in addition to her work up for her mechanical fall. (Libertad KNIGHT,Neeraj Balderas) Departure Time of Disposition: 1014 Disposition: STILL A PATIENT Clinical Impression Primary Impression: Fracture, metacarpal Qualifiers: Encounter type: initial encounter Metacarpal bone: fourth Fracture type: closed Fracture alignment: displaced Laterality: left Secondary Impressions: Abnormal CAT scan, Contusion, COPD exacerbation, Enlarged thyroid gland, Fall Admission Note Spoke With: Mason Mitchell MD Documentation of Exam: Documentation of any treatments & extenuating circumstances including Concerns Regarding Discharge (functional status, medication knowledge or non-compliance, living conditions, etc.) that warrant an admission rather than observation: Analgesia medication adjustment physical therapy ensure safety continuing care discharge planning. (Jv Taylor MD) Procedures Splinting Location: L wrist/hand Manual Alignment Performed: No Pre-Made Type: velcro Splint: volar, wrist Splint Applied By: splint applied by other Pre-Proc Neuro Vasc Exam: normal Post-Proc Neuro Vasc Exam: normal (Jv Taylor MD)
[2017-10-02 05:41] LABS: ABSOLUTE BASOPHIL COUNT 0 /CUMM (0.0-0.2); ABSOLUTE EOSINOPHIL COUNT 0.2 /CUMM (0.0-0.7); ABSOLUTE GRANULOCYTE CT 6.2 /CUMM (1.4-6.5); ABSOLUTE LYMPH COUNT 1.4 /CUMM (1.2-3.4); ABSOLUTE MONOCYTE COUNT 0.7 /CUMM (0.10-0.60); BASOPHIL % 0.2 % (0.0-2.0); EOSINOPHIL % 2.5 % (0-5); GRANULOCYTE % 73.3 % (42.2-75.2); HEMATOCRIT 39.8 % (37-47); MEAN CORPUSCULAR HGB 26.8 PG (27.0-31.0); MEAN CORPUSCULAR HGB CONC 32.5 G/DL (33.0-37.0); MEAN CORPUSCULAR VOLUME 82.4 FL (81.0-99.0); PLATELET COUNT 326 /CUMM (130-400); RBC DISTRIBUTION WIDTH 16.8 % (11.5-14.5); RED BLOOD CELL CT 4.84 /CUMM (4.20-5.40); WHITE BLOOD CELL COUNT 8.4 /CUMM (4.8-10.8)
--- NOTE | 2017-10-02 06:29 | RADIOLOGY REPORT ---
EXAMINATION: XR CHEST XR PELVIS XR WRIST, RIGHT XR HAND, RIGHT XR HIP, LEFT XR KNEE, LEFT XR KNEE, RIGHT CLINICAL INFORMATION: Fall, pain, dyspnea COMPARISON: Multiple priors, most recent chest x-ray 06/10/2017 TECHNIQUE: AP view of the chest. AP view of the pelvis. 2 views of the right wrist. 3 views of the right hand. 2 views of the left hip. 2 views of the left knee. 2 views of the right knee. FINDINGS: Chest: Lung volumes are symmetric. No focal consolidation is seen. No evidence of pneumothorax, significant pleural effusion, or pulmonary edema. The cardiac silhouette appears enlarged, similar to prior. Calcification is present at the aortic arch. No displaced fracture is seen. Pelvis/left hip: Alignment across the hips appears anatomic with mild degenerative change. No acute fracture is seen. The sacroiliac joints appear intact. Right wrist/hand: Alignment across the wrist is anatomic. There is mild to moderate degenerative change at the first carpometacarpal articulation. There is a slightly displaced fracture at the proximal shaft of the fourth metacarpal; intra-articular extension cannot be excluded radiographically. Articular alignment throughout the hand is anatomic. There are scattered degenerative changes of the interphalangeal joints. Left knee: Assessment is somewhat limited due to suboptimal positioning. Alignment appears maintained. Tricompartmental joint space narrowing is suspected along with mild osteophytosis. No acute fracture is identified. A trace effusion is suspected. Right knee: Alignment appears anatomic. There is moderate narrowing of the medial joint space. No acute fracture is seen. No significant effusion. IMPRESSION: 1. Chest: No acute findings identified. 2. Pelvis/left hip: No acute findings identified. Degenerative changes of the hips. 3. Right wrist/hand: Slightly displaced fracture at the proximal shaft of the fourth metacarpal. Degenerative changes. 4. Left knee: Trace effusion. Degenerative changes. 5. Right knee: No acute findings identified. Degenerative changes.
--- NOTE | 2017-10-02 08:09 | CT SCAN REPORT ---
EXAMINATIONS: CT HEAD WITHOUT CONTRAST AND CT CERVICAL SPINE WITHOUT CONTRAST CLINICAL INFORMATION: Fall, trauma COMPARISON: None. TECHNIQUE: Contiguous helical images of the brain were obtained without IV contrast. Contiguous helical images of the cervical spine were obtained without IV contrast. Multiplanar reconstructions were performed. DLP: 1077 mGy-cm. FINDINGS: There is no evidence of acute hemorrhage or territorial infarct. No extra-axial collections are identified. No mass effect or midline shift. There is no ventriculomegaly. Patchy periventricular and subcortical white matter low-attenuation is presumably related to chronic microvascular ischemia. Focal low density in the right basal ganglia could represent an old lacunar infarct. Small dural based calcified mass overlying the left frontal convexity could represent a small calcified meningioma. The visualized paranasal sinuses and mastoid air cells are clear. There is no skull fracture. The soft tissues are unremarkable. Bilateral lens extractions. Mild straightening of the cervical lordosis. No subluxation. No evidence of acute fracture. Vertebral body heights are preserved. Multilevel degenerative changes with loss of intervertebral disc heights and facet arthropathy. There is no prevertebral soft tissue swelling. Incidentally noted retropharyngeal course of the bilateral carotid arteries. The right lobe of the thyroid gland is markedly enlarged containing coarse calcifications. The visualized lung apices demonstrate emphysematous change but without focal consolidation. IMPRESSION: 1. No evidence for acute intracranial injury. 2. No acute fracture or traumatic malalignment of the cervical spine. 3. Right lobe of the thyroid gland is markedly enlarged containing coarse calcifications. This could be further evaluated with nonemergent thyroid ultrasound. 4. Additional incidental findings as noted above.
[2017-10-02 11:30] VITALS: BP 142/78
--- NOTE | 2017-10-02 11:56 | History & Physical ---
Edwardo Cotton 10/02/17 1156: General Information and HPI MD Statement: I have seen and personally examined ODALIS LOVE and documented this H&P. The patient is a 67 year old F who presented with a patient stated chief complaint of fall hip pain and right wrist pain. Source of Information: patient Exam Limitations: clinical condition, confusion History of Present Illness: Ms. Love is a 67-year-old woman with past medical history of osteoporosis (T score -3.1 at right femoral neck), COPD on home oxygen, hypertension, hyperlipidemia, anxiety, diabetes who presents to [facility] ED after sustaining a fall while sleeping this morning. Patient has no reconnection of the incident. She states she was deeper sleep in her bed and only woke up after the fall. She denied any pre-for prodrome or post-fall confusion, loss of consciousness , bowel or bladder incontinence or any tongue bite. Patient lives alone and this was an unwitnessed fall. She denied any palpitations, lightheadedness or dizziness. She did admit to hitting her head. Patient was able to get up on her own and call 911 and came to the ED. Patient complains of pain in her left hip and right wrist. Pain in left hip is 8/10 in intensity, constant and nonradiating. She is able to move her hip, but it aggravates the pain. She is not on chronic steroids. She gets wrist pain as 7/10 in intensity. To be noted, patient was supposed to be on alendronate for her diagnosis of osteoporosis 2 years ago. She admits that has been noncompliant with her medication. In the ED patient got imaging of her hip, wrist has, and knees. Except for slightly displaced fracture at the fourth metacarpal of right hand, no fractures or dislocations identified. Patient was seen in the ED by physical therapy who determined that the patient will need rehabilitation. Other systems reviewed and negative, exceptions above. Allergies/Medications Allergies: Coded Allergies: NO KNOWN ALLERGIES (NONE 10/02/17) Home Med list Albuterol Sulfate 2.5 MG/3 ML (0.083 %) VIAL.NEB 1 Vial INH/JUAN R Q4H RESPIRATORY (Reported) Albuterol Sulfate (Ventolin Hfa) 90 MCG HFA.AER.AD 2 PUF INH AD PRN ASTHMA/ COPD (Reported) Alendronate Sodium 35 MG TABLET 1 TAB PO QSUN Bone (Reported) At least 30 min before any food/beverage or medication. Ciclopirox Olamine (Ciclopirox) 0.77 % CREAM..G. 1 AMPARO TOP BID PRN SKIN RASH apply to affected area(s) Diclofenac Sodium (Voltaren) 1 % GEL..GRAM. 1 AMPARO TOP AD PRN PAIN (Reported) apply to affected area(s) Diltiazem HCl (Diltiazem ER) 240 MG CAP.ER.DEG 1 CAP PO D HEART HEALTH ( Reported) Escitalopram Oxalate (Lexapro) 10 MG TABLET 1 TAB PO DAILY DEPRESSION ( Reported) Fluconazole 100 MG TABLET 1 TAB PO DAILY ANTIBIOTIC, INFECTION (Reported) Fluticasone/Vilanterol (Breo Ellipta 200-25 Mcg INH) 200 MCG-25 MCG/DOSE BLST.W.DEV 1 PUFF INH DAILY ASTHMA/COPD (Reported) Furosemide 40 MG TABLET 1 TAB PO DAILY DIURETIC (Reported) Ibuprofen (Advil Liqui-Gels) 200 MG CAPSULE 2 CAP PO PRN PAIN/INFLAMMATION ( Reported) Ipratropium [place] 0.2 MG/ML (0.02 %) SOLUTION 1 Vial INH/JUAN R Q4H RESPIRATORY (Reported) Lisinopril 10 MG TABLET 1 TAB PO DAILY HIGH BLOOD PRESSURE (Reported) Lorazepam (Ativan) 0.5 MG TABLET 1 TAB PO QPMP PRN ANXIETY (Reported) Magnesium Oxide 400 MG TABLET 1 TAB PO DAILY PRN SUPPLEMENT (Reported) Metformin HCl 500 MG TABLET 1 TAB PO BID DIABETES (Reported) Nystatin 100,000 UNIT/GRAM POWDER 1 AMPARO TOP DAILY ANTIBIOTIC, INFECTION ( Reported) Potassium Chloride (Klor-Con M10) 10 MEQ TAB.ER.PRT 1 TAB PO DAILY HEALTH SUPPLEMENT (Reported) Sulfamethoxazole/Trimethoprim (Bactrim Ds Tablet) 800 MG-160 MG TABLET 1 TAB PO BID Cellulitis Tramadol HCl (Ultram) 50 MG TABLET 1 TAB PO Q6P PRN PAIN Compliance With Home Meds: POOR Past History Travel History Traveled to [place] past 21 day No Medical History Neurological: NONE EENT: hearing loss Cardiovascular: CHF, hypertension Respiratory: bronchitis, COPD, pneumonia, SLEEP APNEA on CPAP Gastrointestinal: NONE Hepatic: NONE Renal: urinary incontinence Musculoskeletal: NONE Psychiatric: anxiety, the patient reports depression "about 35 years ago" Endocrine: diabetes, obesity Blood Disorders: NONE Cancer(s): NONE PULP TESTER/Reproductive: NONE History of MRSA: No History of VRE: No History of CDIFF: No Isolation History: Standard Influenza Vaccine: 05/20/17 Surgical History Surgical History: carpel tunnel c section benign cyst removal r br Past Family/Social History Family History Relations & Conditions if any FATHER FH: Alzheimer's disease MOTHER FH: heart disease Psychosocial History Services at Home: Home Health Aide, Nursing Review of Systems Review of Systems Constitutional: Reports: see HPI. Exam & Diagnostic Data Last 24 Hrs of Vital Signs/I&O Vital Signs Date Time Temp Pulse Resp B/P B/P Pulse O2 O2 Flow FiO2 Mean Ox Delivery Rate 10/02 1130 98.1 98 22 142/78 95 Room Air 10/02 1120 98.4 100 20 146/82 96 Room Air 10/02 0915 98.0 100 20 140/80 96 Room Air 10/02 0659 97.3 107 20 144/82 98 10/02 0617 97 10/02 0510 97 Room Air Room Air 10/02 0501 96.5 110 20 166/86 96 Room Air Intake & Output 10/02 1600 10/02 0800 10/02 0000 Intake Total 100 Output Total Balance 100 Intake, IV 100 Number 1 Bowel Movements Patient 200 lb Weight Physical Exam General Appearance Alert, Oriented X3, Cooperative, Mild Distress, has difficulty stating the name of the hospital, but able to do so upon prompting. Oriented to time and person. Skin No Rashes, No Breakdown, No Significant Lesion HEENT Atraumatic, PERRLA, EOMI, mucous membranes dry. Cardiovascular Regular Rate, Normal S1, Normal S2 Lungs Clear to Auscultation, Normal Air Movement, llimited exam, due to patient habitus. Abdomen Normal Bowel Sounds, Soft, No Tenderness, distended. Neurological Normal Gait, Strength at 5/5 X4 Ext, Sensation Intact, Reflexes 2+, left hip joint examined, good range of motion. Normal right hip examination. Limited examination of right wrist secondary to pain. Extremities No Clubbing, No Cyanosis, No Edema Last 24 Hrs of Labs/Gilles: Laboratory Tests 10/02/17 0515: Anion Gap 11, Estimated GFR > 60, BUN/Creatinine Ratio 13.8, Glucose 107 H, Calcium 9.4, Total Bilirubin 0.4, Direct Bilirubin 0.2, AST 15, ALT 34, Alkaline Phosphatase 97, Troponin I < 0.01, Total Protein 7.0, Albumin 4.0, Amylase 37, Lipase 101, CBC w Diff NO MAN DIFF REQ, RBC 4.84, MCV 82.4, MCH 26.8 L, MCHC 32.5 L, RDW 16.8 H, MPV 7.0 L, Gran % 73.3, Lymphocytes % 16.3 L, Monocytes % 7.7, Eosinophils % 2.5, Basophils % 0.2, Absolute Granulocytes 6.2, Absolute Lymphocytes 1.4, Absolute Monocytes 0.7 H, Absolute Eosinophils 0.2, Absolute Basophils 0 Microbiology 10/02 554 BLOOD: Blood Culture - RECD 10/02 514 BLOOD: Blood Culture - RECD 10/02 53 NASOPHARYN: Influenza Virus A & B Rapid Smear - COMP Diagnostic Data EKG Results Sinus tachycardia. 109. CXR Results IMPRESSION: 1. Chest: No acute findings identified. 2. Pelvis/left hip: No acute findings identified. Degenerative changes of the hips. 3. Right wrist/hand: Slightly displaced fracture at the proximal shaft of the fourth metacarpal. Degenerative changes. 4. Left knee: Trace effusion. Degenerative changes. 5. Right knee: No acute findings identified. Degenerative changes. Assessment/Plan Assessment: 67-year-old woman with past medical history of COPD, osteoporosis, hypertension, hyperlipidemia, obstructive sleep apnea on CPAP here with an unwitnessed fall, no prodromal symptoms and no post fall symptoms, no loss of consciousness fell out of bed while sleeping, EKG at baseline-except for tachycardia likely secondary to pain and dehydration. Patient will be admitted to general medicine service. 1. Status post fall: Pain management with IV Tylenol [id number], IV Toradol for breakthrough pain. PT evaluation. Patient should be on alendronate for osteoporosis, she has been noncompliant. She should also get a DEXA scan as follow-up as an outpatient. Lovenox for DVT prophylaxis. 2. COPD: Stable. Continue current management. Received prednisone and Augmentin in the ED. 3. Hypertension. Stable, continue current meds. 4. Diabetes. Hold metformin. NovoLog sliding scale. 5. Obstructive sleep apnea. Continue CPAP at night. Lovenox for DVT prophylaxis Consistent carbohydrate diet. Full code. As Ranked By This Provider Problem List: 1. Fall Core Measures/Misc (05/06) Acute Coronary Syndrome ACS Diagnosis: No Congestive Heart Failure Congestive Heart Failure Diagnosis No Cerebrovascular Accident CVA/TIA Diagnosis: No VTE (View Protocol) VTE Risk Factors Acute Medical Illness No Mechanical VTE Prophylaxis d/t N/A MechProphylax Ordered No VTE Pharm Prophylaxis d/t NA PharmProphylax ordered Sepsis (View protocol) Sepsis Present: No Ramakrishna KNIGHTJoleen 10/02/17 1421: Attending MD Review Statement Attending Statement Attending MD Statement: examined this patient, discuss w/resident/PA/BOND RUNNER, agreed w/resident/PA/BOND RUNNER, reviewed EMR data (avail), discussed with nursing, reviewed images, amended to note Attending Assessment/Plan: 67 y/o F with pmh sig for osteoporosis (T score -3.1 at right femoral neck), COPD on home oxygen, hypertension, hyperlipidemia, anxiety, diabetes presented after she fell from her bed. She rolled over the bed and fell on the floor during her sleep. She woke up on the floor and had difficulty getting up, felt pain in the right upper extremity. She started to scream afer calling her daughter who then called 911. Pt claims that she did had. She said that the floor was carpeted. In the emergency room patient was found to have negative CT head and cervical spine but there was Slightly displaced fracture at the proximal shaft of the fourth metacarpal and degenerative changes. Patient has a splint on that wrist. Vital Signs Date Time Temp Pulse Resp B/P B/P Pulse O2 O2 Flow FiO2 Mean Ox Delivery Rate 10/02 1355 97.6 107 20 132/70 92 Room Air 10/02 1257 Room Air Room Air 10/02 1130 98.1 98 22 142/78 95 Room Air 10/02 1130 95 Room Air 10/02 1120 98.4 100 20 146/82 96 Room Air 10/02 0915 98.0 100 20 140/80 96 Room Air 10/02 0659 97.3 107 20 144/82 98 10/02 0617 97 10/02 0510 97 Room Air Room Air 10/02 0501 96.5 110 20 166/86 96 Room Air on exam; aox3, nad. cv; s1, s2, rrr resp; clear abd; soft, nt, bs+ ext; no edema. ms: + spilnt on right wrist. Good right radial pulse with good capillary refill. Patient able to wiggle her fingers and no neurovascular deficit. Laboratory Tests 10/02 0515 Chemistry Sodium (137 - 145 mmol/L) 142 Potassium (3.5 - 5.1 mmol/L) 3.9 Chloride (98 - 107 mmol/L) 104 Carbon Dioxide (22 - 30 mmol/L) 27 Anion Gap (5 - 16) 11 BUN (7 - 17 mg/dL) 11 Creatinine (0.5 - 1.0 mg/dL) 0.8 Estimated GFR (>60 ml/min) > 60 BUN/Creatinine Ratio (7 - 25 %) 13.8 Glucose (65 - 99 mg/dL) 107 H Calcium (8.4 - 10.2 mg/dL) 9.4 Total Bilirubin (0.2 - 1.3 mg/dL) 0.4 Direct Bilirubin (< 0.4 mg/dL) 0.2 AST (14 - 36 U/L) 15 ALT (9 - 52 U/L) 34 Alkaline Phosphatase (<127 U/L) 97 Troponin I (< 0.11 ng/ml) < 0.01 Total Protein (6.3 - 8.2 g/dL) 7.0 Albumin (3.5 - 5.0 g/dL) 4.0 Amylase (30 - 110 U/L) 37 Lipase (23 - 300 U/L) 101 Hematology CBC w Diff NO MAN DIFF REQ WBC (4.8 - 10.8 /CUMM) 8.4 RBC (4.20 - 5.40 /CUMM) 4.84 Hgb (12.0 - 16.0 G/DL) 13.0 Hct (37 - 47 %) 39.8 MCV (81.0 - 99.0 FL) 82.4 MCH (27.0 - 31.0 PG) 26.8 L MCHC (33.0 - 37.0 G/DL) 32.5 L RDW (11.5 - 14.5 %) 16.8 H Plt Count (130 - 400 /CUMM) 326 MPV (7.4 - 10.4 FL) 7.0 L Gran % (42.2 - 75.2 %) 73.3 Lymphocytes % (20.5 - 51.1 %) 16.3 L Monocytes % (1.7 - 9.3 %) 7.7 Eosinophils % (0 - 5 %) 2.5 Basophils % (0.0 - 2.0 %) 0.2 Absolute Granulocytes (1.4 - 6.5 /CUMM) 6.2 Absolute Lymphocytes (1.2 - 3.4 /CUMM) 1.4 Absolute Monocytes (0.10 - 0.60 /CUMM) 0.7 H Absolute Eosinophils (0.0 - 0.7 /CUMM) 0.2 Absolute Basophils (0.0 - 0.2 /CUMM) 0 All imaging reviewed. A/P; 67 y/o F with pmh sig for osteoporosis (T score -3.1 at right femoral neck) , COPD on home oxygen, hypertension, hyperlipidemia, anxiety, diabetes admitted with a mechanical fall. Patient also has sustained a right slightly displaced fracture at the proximal shaft of the fourth metacarpal. Patient admitted to medicine floor. She has a splint on. Orthopedic will be consulted. Patient will be on analgesics for pain management. Please confirm and continue the home medications. Sliding scale insulin for diabetes. Patient will be seen by physical therapy. DVT prophylaxis: Lovenox. Full code
[2017-10-02 13:55] VITALS: BP 132/70
[2017-10-02 21:59] VITALS: BP 128/68
--- NOTE | 2017-10-03 05:15 | PN- Housestaff ---
Subjective Follow-up For: Unwitnessed Fall Left 4th metacarpal fracture Subjective: Patient seen and examined. She is seen lying flat in bed resting comfortably. She appears to be in no acute distress. Her hand remains in a splint and remains mildly painful. She admits to feeling persistently weak and has many questions about possible rehabilitation centers. She otherwise denies any numbness, tingling, weakness in the extremity and denies any new complaints. Review of Systems Constitutional: Reports: see HPI. Objective Last 24 Hrs of Vital Signs/I&O Vital Signs Date Time Temp Pulse Resp B/P B/P Pulse O2 O2 Flow FiO2 Mean Ox Delivery Rate 10/03 1610 94 Room Air 10/03 1418 98.3 82 20 134/70 92 Room Air 10/03 1035 Room Air Room Air 10/03 0958 142/80 10/03 0800 95 Room Air 10/03 0800 95 10/03 0800 95 Room Air 10/03 0616 98.3 98 20 142/74 95 Room Air 10/03 0034 87 92 10/02 2252 98 96 10/02 2159 97.6 83 20 128/68 92 Room Air 10/02 1946 95 Room Air Intake & Output 10/03 1600 10/03 0800 10/03 0000 Intake Total 910 240 700 Output Total 650 Balance 260 240 700 Intake, IV 10 100 Intake, Oral 900 240 600 Number 1 Bowel Movements Output, Urine 650 Physical Exam General Appearance: Alert, Oriented X3, Cooperative, No Acute Distress Other Physical Findings: GEN: well developed, obese elderly woman in no acute distress HEENT: NCAT, PERRL, EOMI, anicteric sclera CARD: normal s1/s2 w/o m/g/r; RRR PULM: CTA bilaterally ABD: Soft, NT, ND, BS+ NEURO: Awake and alert, CN II-XII grossly intact EXT: intact pulses/sensation/strength in left hand Current Medications: Current Medications Sig/Warren Start time Last Medication Dose Route Stop Time Status Admin Acetaminophen 1,000 MG Q8H 10/02 1500 DC 10/03 N/A 1 UNIT IV 10/03 1514 0618 Albuterol Sulfate 3 ML EVERY 4 HRS/AWAKE 10/02 1222 AC 10/03 INH 1132 Albuterol Sulfate 2 PUF Q6P PRN 10/02 1115 AC INH Alendronate Sodium 70 MG QTUES 10/09 0700 AC PO Budesonide/ 2 PUF BID 10/02 1103 AC 10/03 Formoterol Fumarate INH 0959 Diclofenac Sodium 1 AMPARO FOUR TIMES A DAY PRN 10/02 1115 AC TOP Diltiazem HCl 240 MG DAILY 10/02 1102 AC 10/03 PO 0958 Enoxaparin Sodium 40 MG DAILY 10/03 1000 AC 10/03 SC 0959 Escitalopram Oxalate 10 MG DAILY 10/03 1000 AC 10/03 PO 0958 Furosemide 40 MG DAILY 10/03 1000 AC 10/03 PO 0958 Insulin Aspart 0 TIDAC 10/02 1200 AC SC Ipratropium [place] 2.5 ML EVERY 4 HRS/AWAKE 10/02 1222 AC 10/03 INH 1133 Ketorolac 15 MG Q6P PRN 10/02 1100 AC Tromethamine IV Lisinopril 10 MG DAILY 10/03 1000 AC 10/03 PO 0958 Lorazepam 0.5 MG QPM PRN 10/02 1115 AC PO 10/09 1114 Nystatin 1 AMPARO BID 10/02 2200 AC 10/02 TOP 205 Patient Medication 1 ED ONE ONE 10/03 1130 DC 10/03 Teaching ED 10/03 1131 1125 Tramadol HCl 50 MG Q6P PRN 10/02 1115 AC PO Last 24 Hrs of Lab/Gilles Results Last 24 Hrs of Labs/Mics: Laboratory Tests 10/03/17 0655: Anion Gap 10, Estimated GFR 55 L, BUN/Creatinine Ratio 21.0, PT 11.0, INR 1.05, CBC w Diff NO MAN DIFF REQ, RBC 4.32, MCV 82.9, MCH 27.1, MCHC 32.7 L, RDW 17.3 H, MPV 7.5, Gran % 75.0, Lymphocytes % 13.8 L, Monocytes % 8.9, Eosinophils % 1.8, Basophils % 0.5, Absolute Granulocytes 5.6, Absolute Lymphocytes 1.0 L, Absolute Monocytes 0.7 H, Absolute Eosinophils 0.1, Absolute Basophils 0 Assessment/Plan Assessment: 67 year old woman with multiple medical problems seen for evaluation after "falling out of bed" with new hip pain. Trauma evaluated determined patient had a new left metacarpal fracture but was otherwise unremarkable. Patient was admitted to general medicine for PT and orthopedics evaluation. Patients pain is reasonable controlled with tylenol, toradol, and ultram. Orthopedics evaluated the patient and replaced her splint today. She is to continue to work with physical therapy and will be discharged to short term rehabilitation most likely on sunday. She is to follow up with orthopedics as an outpatient. Problem List: -Unwitnessed fall -Displaced left fourth metacarpal fracture -COPD, not on home oxygen -Obstructive Sleep Apnea, on CPAP -Osteoporisis, non-compliant with Alendronate -Non-insulin dependent diabetes mellitus -Hypertension -Hyperlipidemia -Anxiety Plan: -General medicine -Nocturnal CPAP -Accuchecks TIDAC with Novolog SSI -Continue home medications, except Metformin -Consult with Orthopedics -PT evaluation: Assist 1, STR -Pain control with Tylenol, Toradol, and Ultram -Diabetic Diet -DVT PPx: Lovenox -FULL CODE Problem List: 1. Fall 2. Fracture, metacarpal Pain Ratin Pain Location: Left hand Back Pain Goal: Pain 4 or less Pain Plan: See assessment Tomorrow's Labs & Rationales: None
[2017-10-03 06:16] VITALS: BP 142/74
[2017-10-03 08:06] LABS: ABSOLUTE BASOPHIL COUNT 0 /CUMM (0.0-0.2); ABSOLUTE EOSINOPHIL COUNT 0.1 /CUMM (0.0-0.7); ABSOLUTE GRANULOCYTE CT 5.6 /CUMM (1.4-6.5); ABSOLUTE MONOCYTE COUNT 0.7 /CUMM (0.10-0.60); BASOPHIL % 0.5 % (0.0-2.0); EOSINOPHIL % 1.8 % (0-5); HEMATOCRIT 35.8 % (37-47); MEAN CORPUSCULAR HGB 27.1 PG (27.0-31.0); MEAN CORPUSCULAR HGB CONC 32.7 G/DL (33.0-37.0); MEAN CORPUSCULAR VOLUME 82.9 FL (81.0-99.0); MEAN PLATELET VOLUME 7.5 FL (7.4-10.4); PLATELET COUNT 250 /CUMM (130-400); RBC DISTRIBUTION WIDTH 17.3 % (11.5-14.5); RED BLOOD CELL CT 4.32 /CUMM (4.20-5.40); WHITE BLOOD CELL COUNT 7.5 /CUMM (4.8-10.8)
--- NOTE | 2017-10-03 09:04 | Cons- Orthopedic ---
General Information and HPI Consulting Request Date of Consult: 10/03/17 Requested By: Carlos KNIGHT,Jin History of Present Illness: 67-year-old female who states she rolled out of bed landing on the floor injured her right hand. She went to [facility] emergency room x-rays taken of the right hand show a minimally displaced fourth metacarpal base fracture. She was placed into a Velcro wrist splint. She is right-hand dominant. States her pain is approximately 3. States it feels somewhat better in the splint however there is pain with motion of her fingers. Allergies/Medications Allergies: Coded Allergies: NO KNOWN ALLERGIES (NONE 10/02/17) Home Med List: Albuterol Sulfate 2.5 MG/3 ML (0.083 %) VIAL.NEB 1 Vial INH/JUAN R Q4H RESPIRATORY (Reported) Albuterol Sulfate (Ventolin Hfa) 90 MCG HFA.AER.AD 2 PUF INH AD PRN ASTHMA/ COPD (Reported) Alendronate Sodium 35 MG TABLET 1 TAB PO QSUN Bone (Reported) At least 30 min before any food/beverage or medication. Ciclopirox Olamine (Ciclopirox) 0.77 % CREAM..G. 1 AMPARO TOP BID PRN SKIN RASH apply to affected area(s) Diclofenac Sodium (Voltaren) 1 % GEL..GRAM. 1 AMPARO TOP AD PRN PAIN (Reported) apply to affected area(s) Diltiazem HCl (Diltiazem ER) 240 MG CAP.ER.DEG 1 CAP PO D HEART HEALTH ( Reported) Escitalopram Oxalate (Lexapro) 10 MG TABLET 1 TAB PO DAILY DEPRESSION ( Reported) Fluconazole 100 MG TABLET 1 TAB PO DAILY ANTIBIOTIC, INFECTION (Reported) Fluticasone/Vilanterol (Breo Ellipta 200-25 Mcg INH) 200 MCG-25 MCG/DOSE BLST.W.DEV 1 PUFF INH DAILY ASTHMA/COPD (Reported) Furosemide 40 MG TABLET 1 TAB PO DAILY DIURETIC (Reported) Ibuprofen (Advil Liqui-Gels) 200 MG CAPSULE 2 CAP PO PRN PAIN/INFLAMMATION ( Reported) Ipratropium [place] 0.2 MG/ML (0.02 %) SOLUTION 1 Vial INH/JUAN R Q4H RESPIRATORY (Reported) Lisinopril 10 MG TABLET 1 TAB PO DAILY HIGH BLOOD PRESSURE (Reported) Lorazepam (Ativan) 0.5 MG TABLET 1 TAB PO QPMP PRN ANXIETY (Reported) Magnesium Oxide 400 MG TABLET 1 TAB PO DAILY PRN SUPPLEMENT (Reported) Metformin HCl 500 MG TABLET 1 TAB PO BID DIABETES (Reported) Nystatin 100,000 UNIT/GRAM POWDER 1 AMPARO TOP DAILY ANTIBIOTIC, INFECTION ( Reported) Potassium Chloride (Klor-Con M10) 10 MEQ TAB.ER.PRT 1 TAB PO DAILY HEALTH SUPPLEMENT (Reported) Sulfamethoxazole/Trimethoprim (Bactrim Ds Tablet) 800 MG-160 MG TABLET 1 TAB PO BID Cellulitis Tramadol HCl (Ultram) 50 MG TABLET 1 TAB PO Q6P PRN PAIN Past History Medical History Blood Transfusion Hx: No Neurological: NONE EENT: hearing loss Cardiovascular: CHF, hypertension Respiratory: bronchitis, COPD, pneumonia, SLEEP APNEA on CPAP Gastrointestinal: NONE Hepatic: NONE Renal: urinary incontinence Musculoskeletal: NONE Psychiatric: anxiety, the patient reports depression "about 35 years ago" Endocrine: diabetes, obesity Blood Disorders: NONE Cancer(s): NONE 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 Home Services at Home: Home Health Aide, Nursing Smoking Status: Current Everyday Smoker Review of Systems Review of Systems: see chart Exam & Diagnostic Data Vital Signs and I&O Vital Signs Date Time Temp Pulse Resp B/P B/P Pulse O2 O2 Flow FiO2 Mean Ox Delivery Rate 10/03 0800 95 Room Air 10/03 0800 95 10/03 0800 95 Room Air 10/03 0616 98.3 98 20 142/74 95 Room Air 10/03 0034 87 92 10/02 2252 98 96 10/02 2159 97.6 83 20 128/68 92 Room Air 10/02 1946 95 Room Air 10/02 1600 92 Room Air 10/02 1355 97.6 107 20 132/70 92 Room Air 10/02 1257 Room Air Room Air 10/02 1130 98.1 98 22 142/78 95 Room Air 10/02 1130 95 Room Air 10/02 1120 98.4 100 20 146/82 96 Room Air 10/02 0915 98.0 100 20 140/80 96 Room Air Intake & Output 10/03 1600 10/03 0800 10/03 0000 10/02 1600 10/02 0800 10/02 0000 Intake Total 240 700 780 100 Output Total 300 Balance 240 700 480 100 Intake, IV 100 20 100 Intake, Oral 240 600 760 Number 1 Bowel Movements Output, Urine 300 Patient 200 lb 200 lb Weight Weight Reported by Patient Measurement Method Physical Exam: She is tender over the base of the fourth metacarpal. There is no extensor lag the fourth digit. There is no malrotation. There is no skin breakdown of the right hand. The hand has mild ecchymosis throughout. She has full range of motion of her wrist. There is mild amount of edema dorsum of the hand is well. X-rays were reviewed and show a minimally displaced fourth metacarpal base fracture. There is no gross deformity of the hand. The hand is neurovascularly intact. Assessment/Plan Assessment/Plan Right fourth metacarpal base fracture -Patient is in a Velcro wrist splint at this time however I will change her to the appropriate ulnar gutter splint today. -She will remain in the splint for the next 5 weeks. She is not to remove the splint -Follow-up will be in our office in [phone] in 5 weeks for repeat x-rays of the hand and splint removal at that time. Consult Acknowledgment - Thank you for your consult request.
--- NOTE | 2017-10-03 12:32 | PN- Att Addend ---
Attending Addendum Attending Brief Note Patient seen and examined, denies any complaints. Her pain is pretty well controlled in the right arm and hand. Patient seen by orthopedic at they will apply the appropriate ulnar gutter splint today. Vital Signs Date Time Temp Pulse Resp B/P B/P Pulse O2 O2 Flow FiO2 Mean Ox Delivery Rate 10/03 1035 Room Air Room Air 10/03 0958 142/80 10/03 0800 95 Room Air 10/03 0800 95 10/03 0800 95 Room Air 10/03 0616 98.3 98 20 142/74 95 Room Air 10/03 0034 87 92 10/02 2252 98 96 10/02 2159 97.6 83 20 128/68 92 Room Air 10/02 1946 95 Room Air 10/02 1600 92 Room Air 10/02 1355 97.6 107 20 132/70 92 Room Air 10/02 1257 Room Air Room Air on exam; aox3, nad. cv; s1,s2, rrr resp; clear abd; soft, nt, bs+ ext; no edema. ms: + Velcro spilnt on right wrist. Good right radial pulse with good capillary refill. Patient able to wiggle her fingers and no neurovascular deficit. Laboratory Tests 10/03 0655 Chemistry Sodium (137 - 145 mmol/L) 140 Potassium (3.5 - 5.1 mmol/L) 4.1 Chloride (98 - 107 mmol/L) 106 Carbon Dioxide (22 - 30 mmol/L) 24 Anion Gap (5 - 16) 10 BUN (7 - 17 mg/dL) 21 H Creatinine (0.5 - 1.0 mg/dL) 1.0 Estimated GFR (>60 ml/min) 55 L BUN/Creatinine Ratio (7 - 25 %) 21.0 Coagulation PT (9.4 - 12.5 SEC) 11.0 INR (0.90 - 1.19) 1.05 Hematology CBC w Diff NO MAN DIFF REQ WBC (4.8 - 10.8 /CUMM) 7.5 RBC (4.20 - 5.40 /CUMM) 4.32 Hgb (12.0 - 16.0 G/DL) 11.7 L Hct (37 - 47 %) 35.8 L MCV (81.0 - 99.0 FL) 82.9 MCH (27.0 - 31.0 PG) 27.1 MCHC (33.0 - 37.0 G/DL) 32.7 L RDW (11.5 - 14.5 %) 17.3 H Plt Count (130 - 400 /CUMM) 250 MPV (7.4 - 10.4 FL) 7.5 Gran % (42.2 - 75.2 %) 75.0 Lymphocytes % (20.5 - 51.1 %) 13.8 L Monocytes % (1.7 - 9.3 %) 8.9 Eosinophils % (0 - 5 %) 1.8 Basophils % (0.0 - 2.0 %) 0.5 Absolute Granulocytes (1.4 - 6.5 /CUMM) 5.6 Absolute Lymphocytes (1.2 - 3.4 /CUMM) 1.0 L Absolute Monocytes (0.10 - 0.60 /CUMM) 0.7 H Absolute Eosinophils (0.0 - 0.7 /CUMM) 0.1 Absolute Basophils (0.0 - 0.2 /CUMM) 0 A/P; 67 y/o F with pmh sig for osteoporosis (T score -3.1 at right femoral neck) , COPD on home oxygen, hypertension, hyperlipidemia, anxiety, diabetes admitted with a mechanical fall. Patient also has sustained a right slightly displaced fracture at the proximal shaft of the fourth metacarpal. Patient seen by orthopedic at they will apply the appropriate ulnar gutter splint today. Pain is well controlled. Continue the current management. Patient on Lovenox for DVT prophylaxis. Patient working with PT and needs to go to rehabilitation.
[2017-10-03 14:18] VITALS: BP 134/70
[2017-10-03 21:31] VITALS: BP 136/70
[2017-10-04 06:31] VITALS: BP 142/78
--- NOTE | 2017-10-04 07:12 | PN- Housestaff ---
Michael Tracy MD 10/04/17 0712: Subjective Follow-up For: Unwitnessed Fall Left 4th metacarpal fracture Subjective: Patient seen and examined. She is seen sitting upright in her chair at bedside resting comfortably. She appears tired, but in no acute distress. She reports not sleeping well last night with new back discomfort despite using her CPAP; she attributes this to the "uncomfy" hospital bed. She states that she otherwise feels fine and denies any new complaints. She denies any numbness, tingling, or weakness in her left hand. Review of Systems Constitutional: Reports: see HPI. Objective Last 24 Hrs of Vital Signs/I&O Vital Signs Date Time Temp Pulse Resp B/P B/P Pulse O2 O2 Flow FiO2 Mean Ox Delivery Rate 10/04 0802 94 Room Air 10/04 0631 98.1 85 22 142/78 92 Room Air 10/04 0059 79 94 10/03 2230 80 93 10/03 2131 98.1 85 20 136/70 94 Room Air 10/03 1610 94 Room Air 10/03 1418 98.3 82 20 134/70 92 Room Air 10/03 1035 Room Air Room Air 10/03 0958 142/80 Intake & Output 10/04 1600 10/04 0800 10/04 0000 Intake Total 240 480 Output Total Balance 240 480 Intake, Oral 240 480 Number 0 Bowel Movements Physical Exam General Appearance: Alert, Oriented X3, Cooperative, No Acute Distress Other Physical Findings: GEN: well developed, obese elderly woman in no acute distress HEENT: NCAT, PERRL, EOMI, anicteric sclera CARD: normal s1/s2 w/o m/g/r; RRR PULM: CTA bilaterally ABD: Soft, NT, ND, BS+ NEURO: Awake and alert, CN II-XII grossly intact EXT: intact pulses/sensation/strength in left hand with splint in place Current Medications: Current Medications Sig/Warren Start time Last Medication Dose Route Stop Time Status Admin Acetaminophen 1,000 MG Q8H 10/02 1500 DC 10/03 N/A 1 UNIT IV 10/03 1514 0618 Albuterol Sulfate 3 ML EVERY 4 HRS/AWAKE 10/02 1222 AC 10/04 INH 0758 Albuterol Sulfate 2 PUF Q6P PRN 10/02 1115 AC INH Alendronate Sodium 70 MG QTUES 10/09 0700 AC PO Budesonide/ 2 PUF BID 10/02 1103 AC 10/03 Formoterol Fumarate INH 2128 Diclofenac Sodium 1 AMPARO FOUR TIMES A DAY PRN 10/02 1115 AC TOP Diltiazem HCl 240 MG DAILY 10/02 1102 AC 10/03 PO 0958 Enoxaparin Sodium 40 MG DAILY 10/03 1000 AC 10/03 SC 0959 Escitalopram Oxalate 10 MG DAILY 10/03 1000 AC 10/03 PO 0958 Furosemide 40 MG DAILY 10/03 1000 AC 10/03 PO 0958 Insulin Aspart 0 TIDAC 10/02 1200 AC SC Ipratropium [place] 2.5 ML EVERY 4 HRS/AWAKE 10/02 1222 AC 10/04 INH 0758 Ketorolac 15 MG Q6P PRN 10/02 1100 AC Tromethamine IV Lisinopril 10 MG DAILY 10/03 1000 AC 10/03 PO 0958 Lorazepam 0.5 MG QPM PRN 10/02 1115 AC 10/04 PO 10/09 1114 0136 Nystatin 1 AMPARO BID 10/02 2200 AC 10/02 TOP 205 Patient Medication 1 ED ONE ONE 10/03 1130 DC 10/03 Teaching ED 10/03 1131 1125 Tramadol HCl 50 MG Q6P PRN 10/02 1115 AC 10/03 PO 8 Assessment/Plan Assessment: 67 year old woman with multiple medical problems seen for evaluation after "falling out of bed" with new hip pain. Trauma evaluated determined patient had a new left metacarpal fracture but was otherwise unremarkable. Patient was admitted to general medicine for PT and orthopedics evaluation. Patient was placed in a gutter splint for five weeks duration by the orthopedics team yesterday. She is quite comfortably with it and denies any pain or symptoms in the extremity. She is tired but otherwise feels well; admittedly weak however. She is to continue with physical therapy with anticipation to be discharged to short term rehab tomorrow. She is to follow up with orthopedics in five weeks for reassessment and imaging of the left hand. Problem List: -Unwitnessed fall -Displaced left fourth metacarpal fracture -COPD, not on home oxygen -Obstructive Sleep Apnea, on CPAP -Osteoporisis, non-compliant with Alendronate -Non-insulin dependent diabetes mellitus -Hypertension -Hyperlipidemia -Anxiety Plan: -General medicine -Nocturnal CPAP -Gutter splint to left hand for five weeks -Accuchecks TIDAC with Novolog SSI -Continue home medications, except Metformin -Consult with Orthopedics -PT evaluation: Assist 1, STR -Pain control with Tylenol, Toradol, and Ultram -Diabetic Diet -DVT PPx: Lovenox -FULL CODE -Outpatient follow up with orthopedics in five weeks with repeat X-ray Problem List: 1. Fracture, metacarpal Pain Ratin Pain Location: Back Pain Goal: Pain 4 or less Pain Plan: See assessment Tomorrow's Labs & Rationales: None Ramakrishna KNIGHT,[facility] 10/04/17 1137: Attending MD Review Statement Attending Statement Attending MD Statement: examined this patient, discuss w/resident/PA/FREIGHT TRUCKER, agreed w/resident/PA/FREIGHT TRUCKER, reviewed EMR data (avail), discussed with nursing, discussed with case mgmt, reviewed images, amended to note Attending Assessment/Plan: Patient seen and examined, feels well. Denies any complaints. Patient had a splint on that was put on by Ortho. Vital Signs Date Time Temp Pulse Resp B/P B/P Pulse O2 O2 Flow FiO2 Mean Ox Delivery Rate 10/04 0830 66 132/80 10/04 0802 94 Room Air 10/04 0800 94 Room Air 10/04 0631 98.1 85 22 142/78 92 Room Air 10/04 0059 79 94 10/03 2230 80 93 10/03 2131 98.1 85 20 136/70 94 Room Air 10/03 1610 94 Room Air 10/03 1418 98.3 82 20 134/70 92 Room Air on exam; aox3, nad. cv; s1,s2, rrr resp; clear abd; soft, nt, bs+ ext; no edema. No labs. A/P: 67 y/o F with pmh sig for osteoporosis (T score -3.1 at right femoral neck) , COPD on home oxygen, hypertension, hyperlipidemia, anxiety, diabetes admitted with a mechanical fall. Patient also has sustained a right slightly displaced fracture at the proximal shaft of the fourth metacarpal. Patient now has a splint on. Continue other current meds. Pain mx with tylenol, tramadol. DVt px; Lovenox. PT recommends STR. Dischrage to STR tomorrow.
--- NOTE | 2017-10-04 07:31 | Patient Discharge Instructions ---
Discharge Instructions General Discharge Information Special Instructions: Keep your splint in place for five weeks, do not remove it. Contact to schedule an appointment in five weeks and to have a repeat X-ray taken. Follow up with your PCP after discharge. Acute Coronary Syndrome Inclusion Criteria At DC or during hospital stay patient has or had the following: ACS DIAGNOSIS No Discharge Core Measures Meds if any: Prescribed or Continued at Discharge Meds if any: NOT Prescribed or Continued at Discharge Congestive Heart Failure Inclusion Criteria At DC or during hospital stay patient has or had the following: CHF DIAGNOSIS No Discharge Core Measures Meds if any: Prescribed or Continued at Discharge Meds if any: NOT Prescribed or Continued at Discharge Cerebrovascular accident Inclusion Criteria At DC or during hospital stay patient has or had the following: CVA/TIA Diagnosis No Discharge Core Measures Meds if any: Prescribed or Continued at Discharge Meds if any: NOT Prescribed or Continued at Discharge Venous thromboembolism Inclusion Criteria VTE Diagnosis No VTE Type NONE VTE Confirmed by (Test) NONE Discharge Core Measures - Per Current guidelines, there needs to be overlap - treatment for the first 5 days of Warfarin therapy. - If discharged on Warfarin prior to 5 days of - overlap therapy, the patient will need to be - assessed for post discharge needs including - *Post discharge parental anticoagulation - *Warfarin and/or parental anticoagulation education - *Follow up date to check INR post discharge At least 5 days overlap therapy as Inpatient No Meds if any: Prescribed or Continued at Discharge Note: Overlap Therapy is Warfarin and Anticoagulant Meds if any: NOT Prescribed or Continued at Discharge
[2017-10-04] MEDS ORDERED: TYLENOL EXTRA500 M2 PO (10:04)
[2017-10-04 14:13] VITALS: BP 126/74
--- NOTE | 2017-10-04 15:02 | Discharge Summary ---
Visit Information Visit Dates Admission Date: 10/02/17 Discharge Date: 10/05/17 Hospital Course Course Attending Physician: Joleen Durbin MD Primary Care Physician: Nery Cooper APRN Consulting Request: Consulting Specialty: Orthopedics Hospital Course: 67-year-old woman with past medical history of obstructive sleep apnea on CPAP, osteoporosis, COPD not on home oxygen, hypertension, hyperlipidemia, anxiety, and [id number] diabetes mellitus brought in by ambulance for evaluation after having an "unwitnessed fall" when she rolled out of bed while sleeping and hit the floor. She denied any loss of consciousness, confusion, bowel/bladder incontinence, or head strike. Upon arrival to the ED she complained of left hip and right wrist pain. ED course -Vitals: Temp 96.5-98.4, HR 98-110, RR 20-22, BP 140-166/78-86, O2 95-97% on room air -CBC: WBC 8.4, Hgb/HCT 13.0/39.8, platelets 326 -BMP: Sodium 142, potassium 3.9, chloride 104, CO2 27, urea 11, creatinine 0.8 -LFT: Within normal limits -Miscellaneous: Troponin I <0.01 -Rapid flu: Negative for influenza A and B -EKG: Sinus tachycardia -Multiple x-ray studies: 1. Chest: No acute findings identified. 2. Pelvis/left hip: No acute findings identified. Degenerative changes of the hips. 3. Right wrist/hand: Slightly displaced fracture at the proximal shaft of the fourth metacarpal. Degenerative changes. 4. Left knee: Trace effusion. Degenerative changes. 5. Right knee: No acute findings identified. Degenerative changes. -CT head/cervical spine without IV contrast: 1. No evidence for acute intracranial injury. 2. No acute fracture or traumatic malalignment of the cervical spine. 3. Right lobe of the thyroid gland is markedly enlarged containing coarse calcifications. This could be further evaluated with nonemergent thyroid ultrasound. 4. Additional incidental findings as noted above. Problem List: -Unwitnessed fall -Displaced left fourth metacarpal fracture -COPD, not on home oxygen -Obstructive Sleep Apnea, on CPAP -Osteoporisis, non-compliant with Alendronate -Non-insulin dependent diabetes mellitus -Hypertension -Hyperlipidemia -Anxiety Hospital course Patient was admitted to the general medicine floor for further evaluation. When medically sounds like patient sustained a mechanical fall from bed while asleep without any comorbid neurologic or cardiovascular component to suggest syncope. Patient had an extensive trauma evaluation with x-ray imaging and CT head/ cervical spine that demonstrated a slightly displaced fracture at the proximal shaft of the fourth metacarpal right hand. Patient was given Tylenol, Toradol, and Ultram for pain control. Orthopedics was consulted and patient was placed in a gutter splint to be kept in place for 5 weeks. Patient is to follow-up with their service after 5 weeks for reassessment and repeat x-rays of her right hand. Physical therapy evaluated the patient and determined that she would benefit from short-term rehabilitation. Patient is being discharged to [facility] for ongoing physical therapy. Allergies: Coded Allergies: NO KNOWN ALLERGIES (NONE 10/02/17) Significant Procedures: SERVICE DATE: 10/02/17 EXAM TYPE: RAD - XRY-AP PELVIS; XRY-CHEST XRAY, SINGLE VIEW; XRY-HAND, RIGHT; XRY-HIP 2-3 VIEWS, LEFT; XRY-KNEE, LEFT; XRY-KNEE, RIGHT; XRY-WRIST 2 VIEWS RIGHT IMPRESSION: 1. Chest: No acute findings identified. 2. Pelvis/left hip: No acute findings identified. Degenerative changes of the hips. 3. Right wrist/hand: Slightly displaced fracture at the proximal shaft of the fourth metacarpal. Degenerative changes. 4. Left knee: Trace effusion. Degenerative changes. 5. Right knee: No acute findings identified. Degenerative changes. SERVICE DATE: 10/02/17 EXAM TYPE: CAT - CT CERV SPINE WO IV CONTRAST; CT HEAD WO IV CONTRAST IMPRESSION: 1. No evidence for acute intracranial injury. 2. No acute fracture or traumatic malalignment of the cervical spine. 3. Right lobe of the thyroid gland is markedly enlarged containing coarse calcifications. This could be further evaluated with nonemergent thyroid ultrasound. 4. Additional incidental findings as noted above. Disposition Summary Disposition Principal Diagnosis: Right fourth metacarpal fracture Additional Diagnosis: Mechanical fall Discharge Disposition: SNF Discharge Instructions General Discharge Information Code Status: Full Code Patient's Diet: Diabetic diet Patient's Activity: Per physical therapy assessment Follow-Up Instructions/Appts: Keep your splint in place for five weeks, do not remove it. Contact to schedule an appointment in five weeks and to have a repeat X-ray taken. Follow up with your PCP after discharge. Medications at Discharge Discharge Medications: Stop taking the following medications: Fluconazole (Fluconazole) 100 MG TABLET ORAL DAILY Qty = 14 Sulfamethoxazole/Trimethoprim (Bactrim Ds Tablet) 800 MG-160 MG TABLET ORAL TWICE DAILY Qty = 20 Continue taking these medications: Magnesium Oxide (Magnesium Oxide) 400 MG TABLET 1 Tablet ORAL DAILY as needed for SUPPLEMENT Comments: NOT GIVEN IN HOSPITAL Lisinopril (Lisinopril) 10 MG TABLET 1 Tablet ORAL DAILY Days = 90 Comments: Last Taken: 10/05/17 Time: 0900 Escitalopram Oxalate (Lexapro) 10 MG TABLET 1 Tablet ORAL DAILY Comments: Last Taken: 10/05/17 Time: 0900AM Potassium Chloride (Klor-Con M10) 10 MEQ TAB.ER.PRT 1 Tablet ORAL DAILY Days = 90 Comments: NOT GIVEN IN HOSPITAL Metformin HCl (Metformin HCl) 500 MG TABLET 1 Tablet ORAL TWICE DAILY Days = 90 Comments: NOT GIVEN IN HOSPITAL Diltiazem HCl (Diltiazem ER) 240 MG CAP.ER.DEG 1 Capsule ORAL Every Day Days = 90 Comments: Last Taken: 10/05/16 Time: 0900AM Albuterol Sulfate (Albuterol Sulfate) 2.5 MG/3 ML (0.083 %) VIAL.NEB 1 Vial Inhale Solution Q4H Comments: Last Taken: 10/05/17 Time: 0800AM Ipratropium [place] (Ipratropium [place]) 0.2 MG/ML (0.02 %) SOLUTION 1 Vial Inhale Solution Q4H Comments: Last Taken: 10/05/17 Time: 0800AM Lorazepam (Ativan) 0.5 MG TABLET 1 Tablet ORAL Every night as needed as needed for ANXIETY Comments: Last Taken: 10/04/17 Time: 01:36 Alendronate Sodium (Alendronate Sodium) 35 MG TABLET 1 Tablet ORAL EVERY SUNDAY Instructions: At least 30 min before any food/beverage or medication. Comments: NOT GIVEN IN HOSPITAL Tramadol HCl (Ultram) 50 MG TABLET 1 Tablet ORAL EVERY SIX HOURS NEEDED as needed for PAIN Qty = 16 Comments: Last Taken: 10/04/17 Time: 17:15 Ciclopirox Olamine (Ciclopirox) 0.77 % CREAM..G. 1 Application On the skin TWICE DAILY as needed for SKIN RASH Qty = 90 Instructions: apply to affected area(s) Comments: NOT GIVEN IN HOSPITAL Furosemide (Furosemide) 40 MG TABLET 1 Tablet ORAL DAILY Qty = 30 Comments: Last Taken: 10/05/17 Time: 0900AM Diclofenac Sodium (Voltaren) 1 % GEL..GRAM. 1 Application On the skin As Directed as needed for PAIN Qty = 300 Instructions: apply to affected area(s) Comments: NOT GIVEN IN HOSPITAL Fluticasone/Vilanterol (Breo Ellipta 200-25 Mcg INH) 200 MCG-25 MCG/DOSE BLST.W.DEV 1 PUFF Inhale through mouth DAILY Qty = 60 Comments: NOT GIVEN IN HOSPITAL Albuterol Sulfate (Ventolin Hfa) 90 MCG HFA.AER.AD 2 Puff Inhale through mouth As Directed as needed for ASTHMA/COPD Qty = 18 Comments: NOT USED IN HOSPITAL Ibuprofen (Advil Liqui-Gels) 200 MG CAPSULE 2 Capsule ORAL TWICE DAILY as needed for pain 1-3 Comments: NOT GIVEN IN HOSPITAL Nystatin (Nystatin) 100,000 UNIT/GRAM POWDER 1 Application On the skin DAILY Qty = 15 Comments: Last Taken: 10/02/17 Time: 20:59 Start taking the following new medications: Acetaminophen (Tylenol Extra Strength) 500 MG TABLET 1 Tablet ORAL EVERY SIX HOURS as needed for PAIN Qty = 30 No Refills Comments: NOT GIVEN IN HOSPITAL Copies To: Nery Cooper APRN; Jesús Weir
[2017-10-04 22:21] VITALS: BP 160/80
[2017-10-05 06:47] VITALS: BP 142/68
--- NOTE | 2017-10-05 07:10 | PN- Housestaff ---
Demarcus KNIGHT,Michael 10/05/17 0710: Subjective Follow-up For: Unwitnessed Fall Left 4th metacarpal fracture Subjective: Patient seen and examined. She is seen sitting upright in her chair at bedside sleeping. She appears confused for a brief time when awoken, but in no acute distress. She states that she feels tired but otherwise denies any new complaints. Review of Systems Constitutional: Reports: see HPI. Objective Last 24 Hrs of Vital Signs/I&O Vital Signs Date Time Temp Pulse Resp B/P B/P Pulse O2 O2 Flow FiO2 Mean Ox Delivery Rate 10/05 937 22 92 Nasal 2.0L Cannula 10/05 0837 22 89 Room Air 10/05 0935 78 122/80 10/05 0820 97.4 86 20 142/68 10/05 0731 95 Room Air 10/05 0647 97.4 86 20 142/68 91 10/04 2234 78 91 10/04 2221 97.6 78 20 160/80 89 Room Air 10/04 1612 95 Room Air 10/04 1413 98.3 80 18 126/74 91 Room Air Intake & Output 10/05 1600 10/05 0800 10/05 0000 Intake Total 240 720 Output Total Balance 240 720 Intake, Oral 240 720 Number 0 0 Bowel Movements Physical Exam General Appearance: Alert, Oriented X3, Cooperative, No Acute Distress Other Physical Findings: GEN: well developed, obese elderly woman in no acute distress HEENT: NCAT, PERRL, EOMI, anicteric sclera CARD: normal s1/s2 w/o m/g/r; RRR PULM: CTA bilaterally ABD: Soft, NT, ND, BS+ NEURO: Awake and alert, CN II-XII grossly intact EXT: intact pulses/sensation/strength in left hand with splint in place Current Medications: Current Medications Sig/Warren Start time Last Medication Dose Route Stop Time Status Admin Acetaminophen 650 MG Q6-PRN PRN 10/04 1015 AC PO Albuterol Sulfate 3 ML EVERY 4 HRS/AWAKE 10/02 1222 AC 10/05 INH 0805 Albuterol Sulfate 2 PUF Q6P PRN 10/02 1115 AC INH Alendronate Sodium 70 MG QTUES 10/09 0700 AC PO Budesonide/ 2 PUF BID 10/02 1103 AC 10/05 Formoterol Fumarate INH 0936 Diclofenac Sodium 1 AMPARO FOUR TIMES A DAY PRN 10/02 1115 AC TOP Diltiazem HCl 240 MG DAILY 10/02 1102 AC 10/05 PO 0935 Docusate Sodium 100 MG DAILY 10/04 1000 AC PO Enoxaparin Sodium 40 MG DAILY 10/03 1000 AC 10/05 SC 0935 Escitalopram Oxalate 10 MG DAILY 10/03 1000 AC 10/05 PO 0935 Furosemide 40 MG DAILY 10/03 1000 AC 10/05 PO 0935 Insulin Aspart 0 TIDAC 10/02 1200 AC SC Ipratropium [place] 2.5 ML EVERY 4 HRS/AWAKE 10/02 1222 AC 10/05 INH 0805 Ketorolac 15 MG Q6P PRN 10/02 1100 AC 10/04 Tromethamine IV 1800 Lisinopril 10 MG DAILY 10/03 1000 AC 10/05 PO 0935 Lorazepam 0.5 MG QPM PRN 10/02 1115 AC 10/04 PO 10/09 1114 0136 Nystatin 1 AMPARO BID 10/02 2200 AC 10/02 TOP 2059 Polyethylene Glycol 17 GM DAILY 10/04 1000 AC PO Senna 187 MG DAILY 10/04 1000 AC PO Tramadol HCl 50 MG Q6P PRN 10/02 1115 AC 10/04 PO 1715 Assessment/Plan Assessment: 67 year old woman with multiple medical problems seen for evaluation after "falling out of bed" with new hip pain. Trauma evaluated determined patient had a new left metacarpal fracture but was otherwise unremarkable. Patient was admitted to general medicine for PT and orthopedics evaluation. Patient was seen to be saturating 89% when sleeping in her chair this morning. She was asymptomatic, but placed on supplemental oxygen via nasal cannula. She feels tired and weak but is eager to be discharged to short term rehabilitation today. Problem List: -Unwitnessed fall -Displaced left fourth metacarpal fracture -COPD, not on home oxygen -Obstructive Sleep Apnea, on CPAP -Osteoporisis, non-compliant with Alendronate -Non-insulin dependent diabetes mellitus -Hypertension -Hyperlipidemia -Anxiety Plan: -General medicine -Nocturnal CPAP -Gutter splint to left hand for five weeks -Accuchecks TIDAC with Novolog SSI -Continue home medications, except Metformin -Consult with Orthopedics -PT evaluation: Assist 1, STR -Pain control with Tylenol, Toradol, and Ultram -Diabetic Diet -DVT PPx: Lovenox -FULL CODE -Outpatient follow up with orthopedics in five weeks with repeat X-ray Problem List: 1. Fracture, metacarpal Pain Ratin Pain Location: None Pain Goal: Pain 4 or less Pain Plan: See assessment Tomorrow's Labs & Rationales: None Consulting Request: Consulting Specialty: Orthopedics Ramakrishna KNIGHT,Joleen 10/05/17 0946: Attending MD Review Statement Attending Statement Attending MD Statement: examined this patient, discuss w/resident/PA/DETAILER, agreed w/resident/PA/DETAILER, reviewed EMR data (avail), discussed with nursing, discussed with case mgmt, amended to note Attending Assessment/Plan: Patient seen and examined, denies any complaints. Her vital signs are stable. Should a bowel movement yesterday. Her pain is well controlled. She has a bed available at rehabilitation today and she is medically stable for discharge to rehabilitation. She will follow up with orthopedic doctor and will keep the splint on for total of 5 weeks as per orthopedic.
[2017-10-05 08:20] VITALS: BP 142/68
[2017-10-05 10:23] VITALS: BP 142/68
== END 2017-10-05 11:39 | DRG 563 ==
LOC: ERH 04:59 → 2NB 10:16 → ERHI 10:16 → 2NB 10:16 → ENRESERV 10:52 → ENTRNSPT 11:11 → EDTRNSPTSTS 11:13 → EDTRNSPT 11:13 → 2NB 11:29 → CMPTRNSPT 11:40 → 2NB 11:41 → ENPENDDIS 10-05 10:57 → 2NB 10-05 11:39
PROVIDERS: Internal Medicine Hematology & Oncology; Pediatrics
DX: S62.322A Displaced fracture of shaft of third metacarpal bone, right hand, initial encounter for closed fracture (principal); J44.9 Chronic obstructive pulmonary disease, unspecified; I11.0 Hypertensive heart disease with heart failure; I50.9 Heart failure, unspecified; M80.84 Other osteoporosis with current pathological fracture, hand; W06.XXXA Fall from bed, initial encounter; Y92.003 Bedroom of unspecified non-institutional (private) residence as the place of occurrence of the external cause; G47.33 Obstructive sleep apnea (adult) (pediatric); Z91.14 Patient's other noncompliance with medication regimen; E11.9 Type 2 diabetes mellitus without complications; Z79.84 Long term (current) use of oral hypoglycemic drugs; E78.5 Hyperlipidemia, unspecified; F41.9 Anxiety disorder, unspecified
CPT/HCPCS: 2NBSP; 36592; 71045; 72170; 73100-RT; 73130-RT; 73502-LT; 73560-LT; 73560-RT; 82436; 87040; 87804; 87804-59; 93005; 93010; 96374; 96375; 97110-GO; 97116-GO; 97161-GP; 97530-GO; J0131; J1650; J1885; J3490

== ENCOUNTER 2018-02-10 13:36 | Inpatient (IN) | payer OTHER, MEDICARE ==
[~2018-02-10] VITALS: Ht 152.4 cm; Wt 97.6 kg
--- NOTE | 2018-02-10 14:08 | ED GI/GU/ABDOMINAL COMPLAINT ---
History of Present Illness General Chief Complaint: Intract Nausea, Vomiting,Diarrhea, cant w Stated Complaint: +D Source: patient Exam Limitations: no limitations Vital Signs & Intake/Output Vital Signs & Intake/Output Vital Signs Date Time Temp Pulse Resp B/P B/P Pulse O2 O2 Flow FiO2 Mean Ox Delivery Rate 02/10 1855 94 02/10 1600 97.8 78 18 142/74 97 Room Air 02/10 1347 100 Nasal 2.5L Cannula 02/10 1338 98.5 99 18 145/85 100 Nasal 2.5L Cannula Allergies Coded Allergies: NO KNOWN ALLERGIES (NONE 10/02/17) Reconcile Medications Albuterol Sulfate 2.5 MG/3 ML (0.083 %) VIAL.NEB 1 Vial INH/JUAN R Q4H RESPIRATORY (Reported) Albuterol Sulfate (Ventolin Hfa) 90 MCG HFA.AER.AD 2 PUF INH AD PRN ASTHMA/ COPD (Reported) Alendronate Sodium 35 MG TABLET 1 TAB PO QSUN Bone (Reported) At least 30 min before any food/beverage or medication. Diltiazem HCl (Diltiazem ER) 240 MG CAP.ER.DEG 1 CAP PO D HEART HEALTH ( Reported) Escitalopram Oxalate (Lexapro) 10 MG TABLET 1 TAB PO DAILY DEPRESSION ( Reported) Fluticasone/Vilanterol (Breo Ellipta 200-25 Mcg INH) 200 MCG-25 MCG/DOSE BLST.W.DEV 1 PUFF INH DAILY ASTHMA/COPD (Reported) Furosemide 40 MG TABLET 1 TAB PO DAILY DIURETIC (Reported) Ibuprofen (Advil Liqui-Gels) 200 MG CAPSULE 2 CAP PO BID PRN pain 1-3 ( Reported) Ipratropium [place] 0.2 MG/ML (0.02 %) SOLUTION 1 Vial INH/JUAN R Q4H RESPIRATORY (Reported) Lisinopril 10 MG TABLET 1 TAB PO DAILY HIGH BLOOD PRESSURE (Reported) Metformin HCl 500 MG TABLET 1 TAB PO BID DIABETES (Reported) Potassium Chloride (Klor-Con M10) 10 MEQ TAB.ER.PRT 1 TAB PO DAILY HEALTH SUPPLEMENT (Reported) Triage Note: BIBA FROM HOME WITH C/O DIARRHEA SINCE SUNDAY, PT DENIES NEW MEDS OR ANTIBIOTICS. PT HAS MULTIPLE COMPLAINTS, "I HAVE A BAD KNEE, I HAVE TO BE ADMITTED, I WANT TO BE ADMITTED, I NEED TO BE TAKEN CARE OF". Triage Nurses Notes Reviewed? yes ? n Is pt currently ? No HPI: Pt complains of diarrhea starting 3 days ago. Notes she has gone 9 times today. Denies any recent abx exposure, no recent camping, travel, or animal exposure, denies diet changes. She feels weak and dehydrated. Nothing seems to help. Denies cramping, abdominal pain. Currently without fever, chills, chest pain. Has asthma/copd and feels like she has more congestion and cough than usual. On o2 at baseline. (Yareli Jasmine PA-C) Past History Travel History Traveled to [place] past 21 day No Medical History Any Pertinent Medical History? see below for history Neurological: NONE EENT: hearing loss Cardiovascular: CHF, hypertension Respiratory: bronchitis, COPD, pneumonia, SLEEP APNEA on CPAP Gastrointestinal: NONE Hepatic: NONE Renal: urinary incontinence Musculoskeletal: NONE Psychiatric: anxiety, the patient reports depression "about 35 years ago" Endocrine: diabetes, obesity Blood Disorders: NONE Cancer(s): NONE YARN CARRIER/Reproductive: NONE History of MRSA: No History of VRE: No History of CDIFF: No Influenza Vaccine: 05/20/17 Surgical History Surgical History: carpel tunnel c section benign cyst removal r br Psychosocial History Who do you live with Patient/Self Services at Home Home Health Aide, Nursing What is your primary language Colombian Tobacco Use: Current Daily Use Daily Tobacco Use Amount/Type: => 5 Cigarettes daily ETOH Use: denies use Illicit Drug Use: denies illicit drug use Family History Family History, If Any: FATHER FH: Alzheimer's disease MOTHER FH: heart disease Hx Contributory? Yes (Yareli Jasmine PA-C) Review of Systems Review of Systems Constitutional: Reports: weakness. Denies: see HPI, chills, diaphoresis, fever, malaise, unexplained weight loss. EENTM: Denies: no symptoms, see HPI. Respiratory: Reports: cough, sputum production, wheezing. Denies: see HPI, hemoptysis, short of breath. Cardiovascular: Denies: chest pain, orthopena, palpitations. GI: Reports: see HPI, diarrhea, nausea, changes in stool. Denies: abdominal pain, bloating, distention, bowel incontinence, melena, bloody stool, vomiting, steatorrhea. Genitourinary: Denies: no symptoms. Musculoskeletal: Reports: joint pain, joint swelling. Skin: Denies: dryness, erythema, lesions, rash. Neurological/Psychological: Denies: anxiety, ataxia, cognitive dysfunction. Hematologic/Endocrine: Denies: see HPI. Immunologic/Allergic: Denies: see HPI. (Mitali SELLERS,Yareli) Physical Exam Physical Exam General Appearance: well developed/nourished, no apparent distress, alert, awake , obese Head: atraumatic, normal appearance Eyes: Bilateral: normal appearance. Neck: normal inspection, supple, full range of motion Respiratory: no respiratory distress, rhonchi, wheezing Cardiovascular: regular rate/rhythm Gastrointestinal: normal bowel sounds, soft, non-tender Extremities: normal range of motion, left knee with pain x 1 year unchanged Neurologic/Psych: awake, alert, oriented x 3 Core Measures ACS in differential dx? No Sepsis Present: No Sepsis Focused Exam Completed? No (Mitali SELLERS,Yareli) Progress Differential Diagnosis: gastroenteritis Plan of Care: Orders Procedure Date/time Status Regular Diet 02/10 D Active OXYGEN SETUP (GEN) 02/10 171 Active Saline Lock 02/10 1712 Active Admit to inpatient 02/10 1712 Active Vital Signs 02/10 1712 Active Activity/Ambulation 02/10 1712 Active Code Status 02/10 1712 Active THYROID STIMULATING HORMONE 02/10 1400 Complete CULTURE,STOOL 02/10 1359 Active C.DIFFICILE 02/10 1359 Active COMPREHENSIVE METABOLIC PANEL 02/10 1343 Complete CBC WITHOUT DIFFERENTIAL 02/10 1343 Complete Current Medications Sig/Warren Start time Last Medication Dose Stop Time Status Admin Albuterol Sulfate 3 ML ONCE ONE 02/10 184 UNVr 02/10 (Proventil) 02/10 184 184 Ipratropium [place] 2.5 ML ONCE ONE 02/10 1845 UNVr 02/10 (Atrovent) 02/10 1846 1845 Laboratory Tests 02/10/18 1400: TSH Cancelled 02/10/18 1400: Anion Gap 9, Estimated GFR > 60, BUN/Creatinine Ratio 15.0, Glucose 95, Calcium 9.6, Total Bilirubin 0.4, AST 15, ALT 26, Alkaline Phosphatase 105, Total Protein 7.4, Albumin 3.9, Globulin 3.5, Albumin/Globulin Ratio 1.1, TSH 0.446, CBC w Diff NO MAN DIFF REQ, RBC 4.92, MCV 85.3, MCH 27.8, MCHC 32.5 L, RDW 16.8 H, MPV 7.3 L, Gran % 76.5 H, Lymphocytes % 14.9 L, Monocytes % 6.0, Eosinophils % 2.1, Basophils % 0.5, Absolute Granulocytes 7.5 H, Absolute Lymphocytes 1.5, Absolute Monocytes 0.6, Absolute Eosinophils 0.2, Absolute Basophils 0 Microbiology 02/10 1520 STOOL: Clostridium difficile Toxin A & B - RECD 02/10 152 STOOL: Stool Culture - RECD 165: Pt complaining of not being able to walk. Difficulty getting to commode and back. 1848: DISCUSSED CASE WITH HOSPITALIST DR DOMÍNGUEZ. WILL ADMIT TO [facility] Initial ED EKG: none (Yareli Jasmine PA-C) Departure Departure Disposition: STILL A PATIENT Condition: Stable Clinical Impression Primary Impression: Multifactorial gait disorder Referrals: Nery Cooper APRN (PCP/Family) Departure Forms: Customer Survey General Discharge Information Admission Note Spoke With: Tanvir Domínguez MD Documentation of Exam: Documentation of any treatments & extenuating circumstances including Concerns Regarding Discharge (functional status, medication knowledge or non-compliance, living conditions, etc.) that warrant an admission rather than observation: Pt with multifactorial gait instability and difficulty ambulating even to the bedside commode here. scant diarrhea here but able to provide small stool sample. patient unable to walk. lives alone. needs additional care. Unsafe to dc home with gait instability. High fall risk. Pt will admit to [facility] for continued monitoring. nebulizer treatments, PT eval and treat and likely need higher level of care or additional assistance. (Yareli Jasmine PA-C) PA/DRUG ABUSE WORKER Co-Sign Statement Statement: ED Attending supervision documentation- x I saw and evaluated the patient. I have also reviewed all the pertinent lab results and diagnostic results. I agree with the findings and the plan of care as documented in the PA's/DRUG ABUSE WORKER's documentation. n/v/d, weakness, unable to ambulate without significant assistance, high fall risk [] I have reviewed the ED Record and agree with the PA's/DRUG ABUSE WORKER's documentation. [] Additions or exceptions (if any) to the PAs/DRUG ABUSE WORKER's note and plan are summarized below: [] (Brandon KNIGHT,Jv)
[2018-02-10 14:30] LABS: ABSOLUTE BASOPHIL COUNT 0 /CUMM (0.0-0.2); ABSOLUTE EOSINOPHIL COUNT 0.2 /CUMM (0.0-0.7); ABSOLUTE GRANULOCYTE CT 7.5 /CUMM (1.4-6.5); ABSOLUTE LYMPH COUNT 1.5 /CUMM (1.2-3.4); ABSOLUTE MONOCYTE COUNT 0.6 /CUMM (0.10-0.60); BASOPHIL % 0.5 % (0.0-2.0); EOSINOPHIL % 2.1 % (0-5); GRANULOCYTE % 76.5 % (42.2-75.2); MEAN CORPUSCULAR HGB 27.8 PG (27.0-31.0); MEAN CORPUSCULAR HGB CONC 32.5 G/DL (33.0-37.0); MEAN CORPUSCULAR VOLUME 85.3 FL (81.0-99.0); MEAN PLATELET VOLUME 7.3 FL (7.4-10.4); PLATELET COUNT 322 /CUMM (130-400); RBC DISTRIBUTION WIDTH 16.8 % (11.5-14.5); RED BLOOD CELL CT 4.92 /CUMM (4.20-5.40); WHITE BLOOD CELL COUNT 9.7 /CUMM (4.8-10.8)
--- NOTE | 2018-02-10 15:07 | RADIOLOGY REPORT ---
EXAMINATION: XR PORTABLE CHEST CLINICAL INFORMATION: Cough, wheezing. COPD exacerbation COMPARISON: 10/02/2017 TECHNIQUE: Portable frontal view of the chest was obtained. FINDINGS: Patient is rotated the left. Present atherosclerosis is present in the thoracic aorta. Cardiac silhouette is unchanged from prior, likely within normal limits, though accentuated by the technique and the patient rotation. Pulmonary vasculature is unremarkable. Lung bases are underpenetrated. Graded opacification of the bases is likely due to overlying soft tissues. No focal consolidation, pneumothorax, or pleural effusion. Sensitivity for abnormalities in the left lower lobe is limited. Degenerative disc disease is present in the thoracic spine. No acute osseous findings. IMPRESSION: No acute pulmonary findings. Assessment of the lung bases, particularly the left lung base, is limited due to underpenetration. Consider nonportable radiographs for better assessment.
[2018-02-10] MEDS ORDERED: LASIX20 M1 PO (20:49)
--- NOTE | 2018-02-10 21:03 | History & Physical ---
Dayna Carty MD 02/10/182101: General Information and [facility] MD Statement: I have seen and personally examined ODALIS ONEAL and documented this H&P. The patient is a 67 year old F who presented with a patient stated chief complaint of diarrhea, gait instability, inability to care for self Source of Information: patient, old records Exam Limitations: no limitations History of Present Illness: This is a 67 year old female with a PMH significant for congestive heart failure , hypertension, incontinence of urine, diabetes that comes to see us for complaints of recent diarrhea, gait instability, inability to care for self. Concerning the diarrhea, the patient states that it started on Sunday night and was multiple episodes that went into Sunday and have finally begun to slow down today. She states that she had more than 10 bowel movements on Sunday night. She denies any blood in the stool, abdominal pain, nausea or vomiting, fever, chills. She denies any new foods, travel, sick contacts as she lives alone. Considering the patient's gait instability, she states that this has been an issue for "a while". The patient was brought in from home where she lives alone. She was last admitted in September for a fall and was discharged to rehabilitation. The patient has helped with her activities of daily living including an aid to help her shower and boiler house supervisor who helps with her grocery shopping. Her daughter lives in [place] and she talks to her most days. The patient denies any ongoing physical therapy. The patient ambulates with a walker at home. She denies any falls since September but does admit that she feels unsteady on her feet. She attributes her inability to walk on aging. She notes pain most the concentrated on the medial aspect of her left knee. She denies any injury to the area. She denies any paralysis of any area of the body , no pain, headache, change in vision, change in hearing. The patient has a history of COPD/asthma. She denies any shortness of breath at baseline but apparently was told that she sounds "junky". She does admit to a nonproductive cough. She denies any chest pain or palpitations. She does not use any oxygen at home but does use CPAP for her obstructive sleep apnea. The patient denies any pedal edema. She last had an echo done in 2016 which showed normal left ventricular ejection fraction with mitral regurg and tricuspid regurg. She is a current every day smoker 1 pack per day for the past 50 years. Allergies/Medications Allergies: Coded Allergies: NO KNOWN ALLERGIES (NONE 10/02/17) Home Med list Albuterol Sulfate 2.5 MG/3 ML (0.083 %) VIAL.NEB 1 Vial INH/JUAN R Q4H RESPIRATORY (Reported) Albuterol Sulfate (Ventolin Hfa) 90 MCG HFA.AER.AD 2 PUF INH AD PRN ASTHMA/ COPD (Reported) Alendronate Sodium 35 MG TABLET 1 TAB PO QSUN Bone (Reported) At least 30 min before any food/beverage or medication. Diltiazem HCl (Diltiazem ER) 240 MG CAP.ER.DEG 1 CAP PO D HEART HEALTH ( Reported) Escitalopram Oxalate (Lexapro) 10 MG TABLET 1 TAB PO DAILY DEPRESSION ( Reported) Fluticasone/Vilanterol (Breo Ellipta 200-25 Mcg INH) 200 MCG-25 MCG/DOSE BLST.W.DEV 1 PUFF INH DAILY ASTHMA/COPD (Reported) Furosemide (Lasix) 20 MG TABLET 1 TAB PO DAILY DIURETIC (Reported) Ibuprofen (Advil Liqui-Gels) 200 MG CAPSULE 2 CAP PO BID PRN pain 1-3 ( Reported) Ipratropium [place] 0.2 MG/ML (0.02 %) SOLUTION 1 Vial INH/JUAN R Q4H RESPIRATORY (Reported) Lisinopril 10 MG TABLET 1 TAB PO DAILY HIGH BLOOD PRESSURE (Reported) Metformin HCl 500 MG TABLET 1 TAB PO BID DIABETES (Reported) Potassium Chloride (Klor-Con M10) 10 MEQ TAB.ER.PRT 1 TAB PO DAILY HEALTH SUPPLEMENT (Reported) Past History Travel History Traveled to [place] past 21 day No Medical History Neurological: NONE EENT: hearing loss Cardiovascular: CHF, hypertension Respiratory: bronchitis, COPD, pneumonia, SLEEP APNEA on CPAP Gastrointestinal: NONE Hepatic: NONE Renal: urinary incontinence Musculoskeletal: NONE Psychiatric: anxiety, the patient reports depression "about 35 years ago" Endocrine: diabetes, obesity Blood Disorders: NONE Cancer(s): NONE CARDIOVASCULAR SONOGRAPHER/Reproductive: NONE History of MRSA: No History of VRE: No History of CDIFF: No Influenza Vaccine: 05/20/17 Surgical History Surgical History: carpel tunnel c section benign cyst removal r br Past Family/Social History Family History Relations & Conditions if any FATHER FH: Alzheimer's disease MOTHER FH: heart disease Psychosocial History Services at Home: Home Health Aide, Nursing Smoking Status: Current Everyday Smoker ETOH Use: denies use Illicit Drug Use: denies illicit drug use Functional Ability ADLs Independent: eating, toileting. Needs Assist: dressing, bathing. Ambulation: walker IADLs Independent: telephone. Needs Assist: shopping, housework, finances, food prep, transportation. Unknown: medication admin. Review of Systems Review of Systems Constitutional: Reports: see HPI, weakness. EENTM: Reports: no symptoms. Cardiovascular: Reports: no symptoms. Respiratory: Reports: cough. GI: Reports: diarrhea. Genitourinary: Reports: no symptoms. Musculoskeletal: Reports: joint pain. Skin: Reports: no symptoms. Neurological/Psychological: Reports: no symptoms. Hematologic/Endocrine: Reports: no symptoms. Immunologic/Allergic: Reports: no symptoms. All Other Systems: Reviewed and Negative Exam & Diagnostic Data Last 24 Hrs of Vital Signs/I&O Vital Signs Date Time Temp Pulse Resp B/P B/P Pulse O2 O2 Flow FiO2 Mean Ox Delivery Rate 02/10 1950 82 18 132/70 02/10 1855 94 02/10 1600 97.8 78 18 142/74 97 Room Air 02/10 1347 100 Nasal 2.5L Cannula 02/10 1338 98.5 99 18 145/85 100 Nasal 2.5L Cannula Intake & Output 02/10 1600 02/10 0800 02/10 0000 Intake Total Output Total Balance Patient 220 lb Weight Physical Exam General Appearance Alert, Oriented X3, Cooperative, No Acute Distress Skin No Rashes, No Breakdown, No Significant Lesion Skin Temp/Moisture Exam: Warm/Dry Sepsis Skin Exam (color): Normal for Ethnicity HEENT Atraumatic, PERRLA, EOMI, Mucous Membr. moist/pink Cardiovascular Regular Rate, Normal S1, Normal S2, No Murmurs Lungs Clear to Auscultation, Normal Air Movement, RUL crackles that clear when patient coughed and cleared her throat Abdomen Normal Bowel Sounds, Soft, No Tenderness, patient appears to have rectus diastasis Neurological Normal Speech, Normal Tone, Sensation Intact, strength somewhat decreased in the left leg due to pain in the medial left knee Extremities No Clubbing, No Cyanosis, No Edema, Normal Pulses, No Tenderness/ Swelling Vascular Normal Pulses, Pulses Symmetrical Sepsis Peripheral Pulse Location: Radial Last 24 Hrs of Labs/Gilles: Laboratory Tests 02/10/18 1400: TSH Cancelled 02/10/18 1400: Anion Gap 9, Estimated GFR > 60, BUN/Creatinine Ratio 15.0, Glucose 95, Calcium 9.6, Total Bilirubin 0.4, AST 15, ALT 26, Alkaline Phosphatase 105, Pro-B- Natriuretic Pept 645 H, Total Protein 7.4, Albumin 3.9, Globulin 3.5, Albumin/ Globulin Ratio 1.1, TSH 0.446, CBC w Diff NO MAN DIFF REQ, RBC 4.92, MCV 85.3, MCH 27.8, MCHC 32.5 L, RDW 16.8 H, MPV 7.3 L, Gran % 76.5 H, Lymphocytes % 14.9 L, Monocytes % 6.0, Eosinophils % 2.1, Basophils % 0.5, Absolute Granulocytes 7.5 H, Absolute Lymphocytes 1.5, Absolute Monocytes 0.6, Absolute Eosinophils 0.2, Absolute Basophils 0 Microbiology 02/10 1520 STOOL: Clostridium difficile Toxin A & B - RECD 02/10 1520 STOOL: Stool Culture - RECD Assessment/Plan Assessment: This is a 67 year old female with a PMH significant for hypertension, incontinence of urine, diabetes, COPD, LATOYA on CPAP, lower extremity edema on Lasix, that comes to see us for complaints of recent diarrhea, gait instability, inability to care for self. Patient states that her diarrhea was unprovoked and has lessened in frequency and severity at this point. Patient continues to have long-term gait instability of about a year that she attributes to old age and also pain in her left medial knee. The patient has a long history of smoking, asthma, COPD on CPAP. In the ED, vitals temperature 98.5, heart rate 99, respiratory rate 18, blood pressure 145/85, oxygen saturation 100% on 2.5 L and then 97% on room air. Labs were all normal, proBNP 645. Chest x-ray showed no acute pulmonary findings. Assessment -Diarrheal illness: Patient does not appear to have any current issues except for some mildly increased bicarbonate secondary to potential volume contraction secondary to diarrhea and concurrent Lasix. She has no electrolyte abnormalities. She has no HUMBERTO. The diarrhea appears to be unprovoked by diet or sick contacts. -Failure to thrive/care for self: The patient has an aide and a personal lines insurance agent that help her with most of her activities of daily living. She lives in home alone. -Gait instability: The patient has had issues with gait instability for years and notably has left medial knee pain that limits her mobility. Patient uses a walker. She has not had any physical therapy or evaluation of the knee. Plan -Admit patient to general medical floors for evaluation and treatment -For patient's diarrhea order stool culture and C. difficile although she has not been on any recent antibiotics -Hold patient's Lasix and reassess volume status -TRC nebs and CPAP -OT/PT consult -Fall precautions -Case management for placement -Pain coverage for patient's left knee DVT prophylaxis with Alps and Lovenox Patient is full code Diabetic diet As Ranked By This Provider Problem List: 1. Multifactorial gait disorder 2. Diarrhea 3. Smoker 4. SLEEP APNEA ON CPAP Core Measures/Misc (05/06) Acute Coronary Syndrome ACS Diagnosis: No Congestive Heart Failure Congestive Heart Failure Diagnosis No Cerebrovascular Accident CVA/TIA Diagnosis: No VTE (View Protocol) VTE Risk Factors Smoker No Mechanical VTE Prophylaxis d/t N/A MechProphylax Ordered No VTE Pharm Prophylaxis d/t NA PharmProphylax ordered Sepsis (View protocol) Sepsis Present: No If YES complete Sepsis Event Note If YES complete Sepsis Event Note Alexandra Landers 02/10/18 4189: General Information and HPI MD Statement: I have seen and personally examined ODALIS ONEAL and documented this H&P. The patient is a 67 year old F who presented with a patient stated chief complaint of []. Core Measures/Misc (05/06) Sepsis (View protocol) If YES complete Sepsis Event Note If YES complete Sepsis Event Note Resident Review Statement Other Findings: Patient is 67 year old female with PMH of HTN, COPD, sleep apnea on CPAP, diabetes came with chief complain of diarrhea. She reports that she has been having diarrhea since 3 days now, when it started on 02/08, she had up to 9 episodes of loose stool per day, and gradually has improved. Patient reports that she came into ER today because she felt that she needs medical attention. Patient denies any fever or chills. Patient denies any associated nausea, vomiting, or abdominal discomfort. Patient also reports that she has been unsteady on her feet since a long time now, and uses walker to ambulate. Patient also reports of left knee pain that has been going on since a year now. Patient reports that she did not have any recent falls since the last time in 2017 when she was admitted to [facility]. Labs and vitals as above CXR showed no acute pulmonary process Assessment and plan 1. Will admit to General Medicine floor for closer monitoring. 2. Patient denies any antibiotic use and reports that her diarrhea has improved. If diarrhea continues toworsen, will check stool ova, parasite, and c. diff in am. 3. Patient has an echo from 2017, EF > 60 %, will give her one bag of NS for IV hydration given her diarrhea. 4. Will continue her home meds including nasal sprays, lisinopril, lasix, diltaizem. 5. Low dose SS and finger sticks 6. Painmanagement with tylenol prn DVT ppx SC lovenox Patient is full code. Sang,Aartesatnam 02/11/18 0231: Core Measures/Misc (05/06) Sepsis (View protocol) If YES complete Sepsis Event Note If YES complete Sepsis Event Note Attending MD Review Statement Attending Statement Attending MD Statement: examined this patient, discuss w/resident/PA/SEAM CHECKER, agreed w/resident/PA/SEAM CHECKER, reviewed EMR data (avail), reviewed images, amended to note Attending Assessment/Plan: CC: Diarrhea PMH: HF, HTN, DM, anxiety, HLD, osteoporosis, COPD, LATOYA on CPAP Patient came to ER with concern of diarrhea that started approximately 2 days back. She had several episodes on Sunday and Sunday, approximately 10 bowel movement per day, no blood, not associated with abdominal pain, nausea or vomiting or fever or chills. The diarrhea was so worse that she could not even make it to bathroom and was feeling very lethargic. She denies any recent travels, sick contacts or different food intake. Patient has been feeling unsteady in her gait since a while but was worsened in last 2-3 days because of diarrhea. Vitals: Temperature 98.5, pulse 99, RR 18, blood pressure 145/85, saturating 100 % on 2 L nasal cannula On exam: A O 3, cooperative, no acute distress, morbidly obese, neck supple, JVD normal, no lymphadenopathy, mucosa moist, no focal neurological deficit, leg edema, no obvious skin rashes or inflammation CVS: S1-S2, RRR. RS: Clear to auscultate bilaterally. Abdomen: Soft, NT, ND, bowel sounds present. CXR: No acute pulmonary findings. Assessment of the lung bases, particularly the left lung base, is limited due to underpenetration. Consider nonportable radiographs for better assessment. Assessment and plan 67-year-old female with past medical history as mentioned above presented in ER for diarrhea since last 2-3 days, 10 bowel movements each day, watery, nonbloody , not associated with abdominal pain. According to patient the diarrhea is better now but she feels very poorly and lethargic. She has been having unsteady gait since a while but because of her recent sickness she could not even walk to bathroom. Patient did not have a any diarrhea while in ER, still received a dose of loperamide. Patient required 2 person assistance to accounts payable coordinator ER to use bedside commode. Patient mucosa appears moist, blood pressure stable, no tachycardia, we will hold off any IV hydration for now as patient does not have any persistent diarrhea at this moment, hold off Lasix, reevaluate. Awaiting stool studies. Patient request short-term rehabilitation as she is not able to take care of herself at home + Diarrhea + Gait instability + History of HF, HTN, DM, anxiety, HLD, osteoporosis, COPD, LATOYA on CPAP - Admit to general medicine - Stool culture, stool ova and parasite, C. difficile - Hold off loperamide - Orthostatic vitals - Hold Lasix - Reevaluate in a.m. for hydration status - Sliding scale insulin, hold oral hypoglycemic - Continue antihypertensives - Fall precautions - OT PT evaluation - Nighttime CPAP - Adequate pain control - Assess for short-term rehabilitation
[2018-02-11 00:50] VITALS: BP 130/84
--- NOTE | 2018-02-11 02:33 | Admission Certification ---
Admission Certification Certification Statement - As attending physician, I certify that at the time of - admission, based on clinical presentation, severity of - symptoms, need for further diagnostic testing and - therapeutic interventions, and risk of adverse outcomes - without in-hospital treatment, in my clinical assessment, - this patient requires an acute hospital stay for a minimum - of two nights or longer. I have also considered psychsocial - factors such as support system, advanced age, financial - issues, cognitive issues, and failed out-patient treatments, - past re-admission history, safety of patient, and lack of - compliance as applicable. Specific rationale supporting this admission is: Gait instability, diarrhea
[2018-02-11 06:09] VITALS: BP 146/84
--- NOTE | 2018-02-11 07:29 | PN- Housestaff ---
See Addendum Berna Greene 02/11/18 0726: Subjective Follow-up For: Diarrhea Gait instability Complaints: no complaints Subjective: Ms Love feels better. She has no new concerns, but she had a few episodes of non-bloody diarrhea which is not assoicated w/ abdominal pain. No chest pain, no dyspnea, or palpitations. No fever. She continues to have pain in her left knee, but no erythema or tenderness. Review of Systems Constitutional: Reports: see HPI. Objective Last 24 Hrs of Vital Signs/I&O Vital Signs Date Time Temp Pulse Resp B/P B/P Pulse O2 O2 Flow FiO2 Mean Ox Delivery Rate 02/11 0609 97.6 97 22 146/84 94 Room Air 02/11 0528 90 98 02/11 0113 86 98 02/11 0111 99 Nasal 2.0L Cannula 02/11 0050 97.4 94 20 130/84 98 Nasal 2.0L Cannula 02/10 2359 Nasal 2.0L Cannula 02/10 2250 98.0 78 18 140/82 94 Room Air 02/10 1950 82 18 132/70 02/10 1855 94 02/10 1600 97.8 78 18 142/74 97 Room Air 02/10 1347 100 Nasal 2.5L Cannula 02/10 1338 98.5 99 18 145/85 100 Nasal 2.5L Cannula Intake & Output 02/11 0800 02/11 0000 02/10 1600 Intake Total 500 Output Total 250 300 Balance -250 200 Intake, Oral 500 Output, Urine 250 300 Patient 207 lb 220 lb Weight Weight Bed scale Measurement Method Physical Exam General Appearance: No Acute Distress Other Physical Findings: General Exam: AAOx3, obese, No acute distress, Skin: No rashes, no breakdown; HEENT: PERRLA, EOMI;Neck: Supple, No JVD; No cervical lymphadenopathy;CVS: Reg Rate, Normal S1,S2, No MGR;Resp: Normal air entry, no ronchi/rales;Abdomen: Soft , No tenderness, Normal Bowel Sounds;Neuro: Normal Speech, Strength 5/5 b/l x 4 extremities, Sensation intact, CN III-XII NL, Reflexes 2+, cerebellar test negative ;Extremities: No cyanosis, no pedal edema, swelling of left knee, no erythema. Current Medications: Current Medications Sig/Warren Start time Last Medication Dose Route Stop Time Status Admin Acetaminophen 650 MG Q8P PRN 02/10 2315 AC PO Albuterol Sulfate 2 PUF Q4P PRN 02/10 2100 AC INH Albuterol Sulfate 3 ML ONCE ONE 02/10 1845 DC 02/10 INH 02/10 1846 184 Diltiazem HCl 240 MG DAILY 02/11 900 AC PO Enoxaparin Sodium 40 MG DAILY 02/11 900 AC SC Escitalopram Oxalate 10 MG DAILY 02/11 900 AC PO Fluticasone 2 SPRAY DAILY 02/11 900 AC Propionate AZALIA Furosemide 20 MG DAILY 02/11 900 CAN PO Guaifenesin 600 MG Q12 02/10 2100 AC 02/10 PO 2125 Ibuprofen 600 MG Q6P PRN 02/10 2315 AC PO Ibuprofen 400 MG ONCE ONE 02/10 1645 DC 02/10 PO 02/10 1646 1743 Ibuprofen 0 .STK-MED ONE 02/10 1640 DC PO Insulin Aspart 0 TIDAC 02/11 08 AC SC Ipratropium [place] 2.5 ML ONCE ONE 02/10 184 DC 02/10 INH 02/10 184 184 Lisinopril 10 MG DAILY 02/11 900 AC PO Loperamide HCl 2 MG ONE ONE 02/10 1645 DC 02/10 PO 02/10 1646 1743 Sodium Chloride 1,000 ML Q13H 02/10 2115 DC IV 02/11 1014 Last 24 Hrs of Lab/Gilles Results Last 24 Hrs of Labs/Mics: Laboratory Tests 02/10/18 1400: TSH Cancelled 02/10/18 1400: Anion Gap 9, Estimated GFR > 60, BUN/Creatinine Ratio 15.0, Glucose 95, Calcium 9.6, Total Bilirubin 0.4, AST 15, ALT 26, Alkaline Phosphatase 105, Pro-B- Natriuretic Pept 645 H, Total Protein 7.4, Albumin 3.9, Globulin 3.5, Albumin/ Globulin Ratio 1.1, TSH 0.446, CBC w Diff NO MAN DIFF REQ, RBC 4.92, MCV 85.3, MCH 27.8, MCHC 32.5 L, RDW 16.8 H, MPV 7.3 L, Gran % 76.5 H, Lymphocytes % 14.9 L, Monocytes % 6.0, Eosinophils % 2.1, Basophils % 0.5, Absolute Granulocytes 7.5 H, Absolute Lymphocytes 1.5, Absolute Monocytes 0.6, Absolute Eosinophils 0.2, Absolute Basophils 0 Microbiology 02/10 1520 STOOL: Clostridium difficile Toxin A & B - RECD 02/10 1520 STOOL: Stool Culture - RECD Assessment/Plan Assessment: Ms. Love is a 67-year-old with a past history of hypertension, type 2 diabetes , anxiety, hyperlipidemia, COPD, obstructive sleep apnea on CPAP, osteoporosis presented to the emergency room with a chief concern of diarrhea 2 days ago. Reported several episodes, up to 10 times in the last 2 days. No recent use of antibiotics, chemotherapy, travel, sick contacts. Reported nasal congestion. Not associated with abdominal discomfort, guru or hematochezia. Also reported having unsteady gait 1 year, which is attributed to pain in left knee. No recent falls. At the time of admission- vitals temp 98.5, OK 99, RR 18, BP 145/85, Pulse ox 100% 2.5L supplemental oxygen. Pertinent lab findings: WBC 9.7, Hb 13.7, Platelets 322 Na 141, K 3.9, HCO3 30 BUN 12, Sr Cr 0.8 AST 15, AST 26, alkaline phosphatase 105. TSH 0.44 Chest x-ray 02/10/2018 revealed-No acute pulmonary findings. Assessment of the lung bases, particularly the left lung base, is limited due to underpenetration. Consider nonportable radiographs for better assessment. Knee x-ray left 02/11/2018 revealed degenerative arthritic changes medial and patellofemoral compartments. There is no visible acute fracture, dislocation or loose bodies. Stool culture-preliminary reported mixed lorelei. Shiga toxin 1 and 2 negative. C. difficile toxin a and B by Mirian. Etiology in her case of having an acute diarrhea is likely gastroenteritis, which is possibly viral in her case. Since she didn't have any recent antibiotic use, C. difficile is unlikely, but community-acquired C. difficile was in differential. Given her left knee swelling and pain is likely from osteoarthritis, which has been shown by x-ray. Since no effusion is seen, there is no reason he should be tapped. Given chronicity, acute causes of arthritis are ruled out such as reactive in her case. Given continued morning stiffness in her right lower extremity, osteoarthritis is still likely and rheumatological disorders could be kept in mind for differentials. In regards to her gait instability, vitamin B12 deficiency could be ruled out, and no evidence of innner ear problems, or abnormal cerebellar tests. In regards to her respiratory concerns, she should be continued on CPAP. Problem list: #1 acute diarrhea #2 gait instability secondary to osteoarthritis of right knee #3 history of hypertension #4 history of type 2 diabetes #5 history of COPD, obstructive sleep apnea on CPAP Below is the plan : - Symptomatic management, for diarrhea. - Check vitamin B-12, which is unlikely to be abnormal given her normal MCV, however possible in the setting of concurrent Fe def. - Continue lisinopril and cardizem. Hold lasix for now. Restart in the am. - Start lópez-2 inhibitors Celecoxib 200mg daily for a total of 7 days. Hold for GI bleed. - Taper down oxygen as tolerated. -Continue ipratropium, albuterol, and start symbicort. Pt uses breo. - If she continues to have several episodes of diarrhea, would start gentle hydration. At this time renal function seems normal. -In regards to symptomatic management of nasal congestion, Flonase could be used. -Continue insulin sliding scale for diabetes. Hold oral hypoglycemic drugs at this time. -Given her gait instability, PT evaluation. -Fall precautions. Checklist: #1 DVT prophylaxis-Lovenox subcutaneous #2 CODE STATUS-full code. Final recommendations to follow after discussing with the attending. Problem List: 1. Multifactorial gait disorder Pain Ratin Pain Location: back Pain Goal: Pain 4 or less Pain Plan: tylenol Tomorrow's Labs & Rationales: cbc bep Jay Sanders MD 02/11/18 1605: Attending MD Review Statement Attending Statement Attending MD Statement: examined this patient, discuss w/resident/PA/SATELLITE TV TECHNICIAN INSTALLER, agreed w/resident/PA/SATELLITE TV TECHNICIAN INSTALLER, reviewed EMR data (avail), discussed with nursing, discussed with case mgmt, reviewed images, amended to note Attending Assessment/Plan: The patient was seen and discussed with house staff. Left knee symptoms c/w osteoarthritis. Agree with treating with anti-inflammatory and follow. Diarrhea improving. Stool negative for C-diff and others.
--- NOTE | 2018-02-11 10:22 | RADIOLOGY REPORT ---
EXAMINATION: XR KNEE, LEFT CLINICAL INFORMATION: Gait instability. Swelling and tenderness left knee. COMPARISON: None TECHNIQUE: Four views of the left knee. FINDINGS: There is significant loss of medial and patellofemoral compartment joint space with periarticular spurring. Also visualized is pulmonary venous spurring in the lateral compartment. No abnormal joint effusion or loose body seen. No visible acute fracture or dislocation. IMPRESSION: Degenerative arthritic changes medial and patellofemoral compartments. There is no visible acute fracture, dislocation or loose bodies.
[2018-02-11 14:34] VITALS: BP 152/70
--- NOTE | 2018-02-11 18:59 | Discharge Summary ---
See Addendum Visit Information Visit Dates Admission Date: 02/10/18 Discharge Date: 02/13/18 Hospital Course Course Attending Physician: Jay Sanders MD Primary Care Physician: Nery Cooper APRN Hospital Course: Ms. Love is a 67-year-old with a past history of hypertension, type 2 diabetes , anxiety, hyperlipidemia, COPD, obstructive sleep apnea on CPAP, osteoporosis presented to the emergency room with a chief concern of diarrhea (upto 10 episodes) 2 days prior to presentation to the ER likely secondary to gastroenteritis. Also reported to have had unsteady gait 1 year, which was attributed to pain in left knee. She didn't have any recent falls. At the time of admission- vitals temp 98.5, OK 99, RR 18, BP 145/85, Pulse ox 100% 2.5L supplemental oxygen.( she doesnt use supplemental O2 at baseline) Pertinent lab findings: WBC 9.7, Hb 13.7, Platelets 322 Na 141, K 3.9, HCO3 30 BUN 12, Sr Cr 0.8 AST 15, AST 26, alkaline phosphatase 105. TSH 0.44 Chest x-ray 02/10/2018 revealed-No acute pulmonary findings. Assessment of the lung bases, particularly the left lung base, is limited due to underpenetration. Consider nonportable radiographs for better assessment. Knee x-ray left 02/11/2018 revealed degenerative arthritic changes medial and patellofemoral compartments. There is no visible acute fracture, dislocation or loose bodies. Stool culture-preliminary reported mixed lorelei. Shiga toxin 1 and 2 negative. C. difficile toxin a and B by Mirian. Etiology in her case of having an acute diarrhea is likely gastroenteritis, which is possibly viral in her case which resolved after she was admitted to the hospital. Given her left knee swelling and pain was likely from osteoarthritis, which has been shown on radiology. Since no effusion is seen, there was no reason he should be tapped. She was started on celecoxib for the managment of OA , and was tapered down within one week. She showed improvement after she was started on NSAIDs. Her gait instability was attributed to osteoarthritis. In regards to her respiratory concerns, she was continued on CPAP and supplemental oxygen as needed. At home, she doenst use any supplemental oxygen. She was recommended to use albuterol inhalation every 4 hrs(including nights), to make sure that she is asymptomatic. She was found to be increasingly sleepy, likely due to poor adherence to CPAP, and inability to sleep well. She didnt have any AMS, which warranted further workup. Problem list: #1 acute diarrhea #2 gait instability secondary to osteoarthritis of right knee #3 history of hypertension #4 history of type 2 diabetes #5 history of COPD, obstructive sleep apnea on CPAP Follow up: 1. Please use albuterol therapy round the clock. Please see your lumber loader as soon as possible to make sure that the medications are updated. 2. Please ensure that the pt uses CPAP at night, which likely was causing her increased sleepiness. Allergies: Coded Allergies: NO KNOWN ALLERGIES (NONE 10/02/17) Pertinent Lab Results: RAD - XRY-KNEE, LEFT 02/11/18- Degenerative arthritic changes medial and patellofemoral compartments. There is no visible acute fracture, dislocation or loose bodies. XRY-PORTABLE CHEST XRAY 02/10/18-1414 No acute pulmonary findings. Assessment of the lung bases, particularly the left lung base, is limited due to underpenetration. Consider nonportable radiographs for better assessment. Disposition Summary Disposition Principal Diagnosis: 1. Gastroenteritis Additional Diagnosis: Osteoarthritis Discharge Disposition: SNF Discharge Instructions General Discharge Information Code Status: Full Code Patient's Diet: heart healthy diet. Patient's Activity: As tolerated Follow-Up Instructions/Appts: 1. Please see your PCP within one week of discharge. Medications at Discharge Discharge Medications: Stop taking the following medications: Ibuprofen (Advil Liqui-Gels) 200 MG CAPSULE ORAL TWICE DAILY as needed for pain 1-3 Continue taking these medications: Lisinopril (Lisinopril) 10 MG TABLET 1 Tablet ORAL DAILY Days = 90 Comments: Last Taken: 02/13/18 Time: 0830 AM Escitalopram Oxalate (Lexapro) 10 MG TABLET 1 Tablet ORAL DAILY Comments: Last Taken: 02/13/18 Time: 0830 AM Potassium Chloride (Klor-Con M10) 10 MEQ TAB.ER.PRT 1 Tablet ORAL DAILY Days = 90 Comments: NOT GIVEN IN HOSPITAL Metformin HCl (Metformin HCl) 500 MG TABLET 1 Tablet ORAL TWICE DAILY Days = 90 Comments: NOT GIVEN IN HOSPITAL Diltiazem HCl (Diltiazem ER) 240 MG CAP.ER.DEG 1 Capsule ORAL Every Day Days = 90 Comments: Last Taken: 02/13/18 Time: 0830 AM Albuterol Sulfate (Albuterol Sulfate) 2.5 MG/3 ML (0.083 %) VIAL.NEB 1 Vial Inhale Solution Q4H Comments: Last Taken: 02/13/18 Time: 1200 PM Ipratropium [place] [employer] (Ipratropium [employer]) 0.2 MG/ML (0.02 %) SOLUTION 1 Vial Inhale Solution Q4H Comments: Last Taken: 02/13/18 Time: 0830 AM Alendronate Sodium (Alendronate Sodium) 35 MG TABLET 1 Tablet ORAL EVERY SUNDAY Instructions: At least 30 min before any food/beverage or medication. Comments: NOT GIVEN IN HOSPITAL Fluticasone/Vilanterol (Breo Ellipta 200-25 Mcg INH) 200 MCG-25 MCG/DOSE BLST.W.DEV 1 PUFF Inhale through mouth DAILY Qty = 60 Comments: NOT GIVEN IN HOSPITAL Albuterol Sulfate (Ventolin Hfa) 90 MCG HFA.AER.AD 2 Puff Inhale through mouth As Directed as needed for ASTHMA/COPD Qty = 18 Comments: NOT USED IN HOSPITAL Furosemide (Lasix) 20 MG TABLET 1 Tablet ORAL DAILY Comments: Last Taken: 02/13/18 Time: 0830 AM Start taking the following new medications: Celecoxib (Celebrex) 100 MG CAPSULE 1 Capsule ORAL See Instructions Qty = 15 No Refills Instructions: Take 1 tab twice daily on 02/14,02/15,02/16,02/17, 1 tab once daily 02/18-02/24. Comments: Last Taken: 02/13/18 Time: 0830 AM Copies To: Nery Cooper APRN
[2018-02-11 22:23] VITALS: BP 150/62
[2018-02-12 05:35] VITALS: BP 148/72
--- NOTE | 2018-02-12 07:20 | PN- Housestaff ---
RamonaStevenjasmyne 02/12/18 0717: Subjective Follow-up For: Diarrhea Gait instability Complaints: no complaints Subjective: Ms Love feels well compared to yesterday. She stated that she had acute onset of dyspnea this morning after she woke up, which is chronic for her. After she received beta agonist-albuterol inhalation, she felt much better. She did not have any more symptoms. Did not have any chest pain, palpitations at that time. She did not have any more episodes of diarrhea. In regards to her pain in her left knee, she feels the pain improved compared to yesterday. We discussed about possible physical therapy, and the patient feels strongly that she wants to go to short-term rehabilitation. Review of Systems Constitutional: Reports: see HPI. Objective Last 24 Hrs of Vital Signs/I&O Vital Signs Date Time Temp Pulse Resp B/P B/P Pulse O2 O2 Flow FiO2 Mean Ox Delivery Rate 02/12 0535 98.1 79 24 148/72 95 CPAP 02/12 0109 93 Room Air 02/12 0000 Nasal 2.0L Cannula 02/11 2232 71 95 02/11 2223 98.3 76 20 150/62 94 Room Air 02/11 1615 95 Nasal 2.0L Cannula 02/11 1600 96 Nasal 2.0L Cannula 02/11 1552 Room Air 2.0L 02/11 1434 98.2 94 20 152/70 93 Room Air 02/11 0925 71 148/70 02/11 0804 94 Room Air 02/11 0800 Nasal 2.0L Cannula 02/11 0800 Room Air Intake & Output 02/12 0800 02/12 0000 02/11 1600 Intake Total 100 970 Output Total Balance 100 970 Intake, IV 10 Intake, Oral 100 960 Number 1 Bowel Movements Patient 220 lb Weight Physical Exam General Appearance: No Acute Distress Other Physical Findings: General Exam: AAOx3, obese, No acute distress, Skin: No rashes, no breakdown; HEENT: PERRLA, EOMI;Neck: Supple, No JVD; No cervical lymphadenopathy;CVS: Reg Rate, Normal S1,S2, No MGR;Resp: decreased air entry, expiratory wheezes; Abdomen: Soft, No tenderness, Normal Bowel Sounds;Neuro: Normal Speech, Strength 5/5 b/l x 4 extremities, Sensation intact, CN III-XII NL, Reflexes 2+, cerebellar test negative ;Extremities: No cyanosis, no pedal edema, swelling of left knee, no erythema. Current Medications: Current Medications Sig/Warren Start time Last Medication Dose Route Stop Time Status Admin Acetaminophen 650 MG .STK-MED ONE 02/11 1650 DC PO 02/11 165 Acetaminophen 650 MG Q8P PRN 02/10 2315 AC 02/11 PO 1651 Albuterol Sulfate 3 ML EVERY 4 HRS/AWAKE 02/11 0800 AC 02/12 INH 0107 Albuterol Sulfate 2 PUF Q4P PRN 02/10 2100 AC INH Budesonide/ 2 PUF BID 02/11 2100 AC 02/11 Formoterol Fumarate INH 202 Celecoxib 200 MG DAILY 02/11 1545 AC 02/11 PO 1819 Diltiazem HCl 240 MG DAILY 02/11 0900 AC 02/11 PO 0924 Enoxaparin Sodium 40 MG DAILY 02/11 0900 AC 02/11 SC 0925 Escitalopram Oxalate 10 MG DAILY 02/11 0900 AC 02/11 PO 0924 Fluticasone 2 SPRAY DAILY 02/11 0900 AC 02/11 Propionate AZALIA 0925 Guaifenesin 600 MG Q12 02/10 2100 AC 02/11 PO 202 Ibuprofen 600 MG Q6P PRN 02/10 2315 DC PO Insulin Aspart 0 TIDAC 02/11 0800 AC SC Ipratropium [place] 2.5 ML EVERY 4 HRS/AWAKE 02/11 0800 AC 02/12 INH 0107 Lisinopril 10 MG DAILY 02/11 0900 AC 02/11 PO 0925 Last 24 Hrs of Lab/Gilles Results Last 24 Hrs of Labs/Mics: Laboratory Tests 02/12/18 0633: Anion Gap 10, Estimated GFR > 60, BUN/Creatinine Ratio 22.5 Assessment/Plan Assessment: Ms. Love is a 67-year-old with a past history of hypertension, type 2 diabetes , anxiety, hyperlipidemia, COPD, obstructive sleep apnea on CPAP, osteoporosis presented to the emergency room with a chief concern of diarrhea 2 days ago. Reported several episodes, up to 10 times in the last 2 days likely from viral gastroenteritis. Since she didn't have any recent antibiotic use, C. difficile is unlikely, but community-acquired C. difficile was in differential. Given her left knee swelling and pain is likely from osteoarthritis, which has been shown by x-ray. Since no radiological effusion is seen, there is no reason he should be tapped. Given chronicity, acute causes of arthritis are ruled out such as reactive in her case. Given continued morning stiffness in her right lower extremity, osteoarthritis is still likely and rheumatological disorders could be kept in mind for differentials. In regards to her gait instability, vitamin B12 deficiency could be ruled out, and no evidence of innner ear problems, or abnormal cerebellar tests. In regards to her respiratory status, she continues to require supplemental oxygen is likely from viral bronchitis. At this time, she would not require any enteral steroids. In regards to her obstructive sleep apnea, she should be continued on CPAP. Pertinent lab findings in the last 24 hours: Na 141, K 4.0, HCO3 27 BUN 18, Sr Cr 0.8 Knee x-ray left 02/11/2018 revealed degenerative arthritic changes medial and patellofemoral compartments. There is no visible acute fracture, dislocation or loose bodies. Problem list: #1 acute diarrhea, likely gastroenteritis #2 COPD, obstructive sleep apnea on CPAP #3 history of hypertension #4 history of type 2 diabetes #5 gait instability secondary to osteoarthritis of right knee Below is the plan : - Symptomatic management, for diarrhea. Stool cultures, and c diff negative. - Taper down oxygen as tolerated. -Continue ipratropium, albuterol, and start symbicort. Pt uses breo. - Continue lisinopril and cardizem. Hold lasix for now. Restart in the am. - Start lópez-2 inhibitors Celecoxib 200mg daily for a total of 7 days. Hold for GI bleed. - If she continues to have several episodes of diarrhea, would start gentle hydration. At this time renal function seems normal. -In regards to symptomatic management of nasal congestion, Flonase could be used. -Continue insulin sliding scale for diabetes. Hold oral hypoglycemic drugs at this time. -Given her gait instability, PT evaluation was requested who recommended possible home PT. -Fall precautions. Checklist: #1 DVT prophylaxis-Lovenox subcutaneous #2 CODE STATUS-full code. Problem List: 1. Osteoarthritis 2. Diarrhea Pain Ratin Pain Location: left knee Pain Goal: Pain 4 or less Pain Plan: tylenol prn celecoxib Tomorrow's Labs & Rationales: No labs necessary Jay Sanders MD 02/12/18 3967: Attending MD Review Statement Attending Statement Attending MD Statement: examined this patient, discuss w/resident/PA/GREASE REFINING SUPERVISOR, agreed w/resident/PA/GREASE REFINING SUPERVISOR, discussed with family, reviewed EMR data (avail), discussed with nursing, discussed with case mgmt, reviewed images, amended to note Attending Assessment/Plan: The patient was seen and discussed with house staff. 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 The patient uses her nebulizer at home q4h around the clock (also at night). Now better post aerosol, however some wheeze on exam. Diarrhea improved/resolved. Still weak. C/O back and left knee pain. Will follow on Celebrex.
[2018-02-12 14:13] VITALS: BP 140/80
[2018-02-12 22:26] VITALS: BP 138/70
[2018-02-13 06:25] VITALS: BP 140/68
--- NOTE | 2018-02-13 07:24 | PN- Housestaff ---
Berna Greene 02/13/18 0721: Subjective Follow-up For: Diarrhea Gait instability Complaints: no complaints Subjective: She was stable this morning, but appeared sleepy today. She didnt have a good night's sleep, and was wishing to sleep more. She didnt appear to be altered, but more sleepy given her lack of sleep. No chest pain, shortness of breath, or palpitations. Review of Systems Constitutional: Reports: see HPI. Objective Last 24 Hrs of Vital Signs/I&O Vital Signs Date Time Temp Pulse Resp B/P B/P Pulse O2 O2 Flow FiO2 Mean Ox Delivery Rate 02/13 0625 98.0 56 24 140/68 93 Room Air 02/13 0242 92 Nasal 1.0L Cannula 02/13 0024 71 92 02/13 0000 Nasal 2.0L Cannula 02/12 2235 76 93 02/12 2226 98.7 70 18 138/70 93 02/12 1645 95 Nasal 2.0L Cannula 02/12 1413 98.5 84 20 140/80 93 Nasal 2.0L Cannula 02/12 0926 98.1 79 24 148/72 02/12 0800 Nasal 2.0L Cannula 02/12 0800 95 Room Air Intake & Output 02/13 0800 02/13 0000 02/12 1600 Intake Total 100 800 Output Total 300 200 100 Balance -300 -100 700 Intake, Oral 100 800 Output, Urine 300 200 100 Patient 215 lb Weight Physical Exam General Appearance: No Acute Distress Other Physical Findings: General Exam: AAOx3, obese, No acute distress, Skin: No rashes, no breakdown; HEENT: PERRLA, EOMI;Neck: Supple, No JVD; No cervical lymphadenopathy;CVS: Reg Rate, Normal S1,S2, No MGR;Resp: Normal air entry, no ronchi/rales; Abdomen: Soft, No tenderness, Normal Bowel Sounds;Neuro: Normal Speech, Strength 5/5 b/l x 4 extremities, Sensation intact, CN III-XII NL, Reflexes 2+, cerebellar test negative ;Extremities: No cyanosis, no pedal edema, swelling of left knee, no erythema. Current Medications: Current Medications Sig/Warren Start time Last Medication Dose Route Stop Time Status Admin Acetaminophen 650 MG .STK-MED ONE 02/12 927 DC PO 02/13 928 Acetaminophen 650 MG Q8P PRN 02/10 2315 AC 02/12 PO 0929 Albuterol Sulfate 3 ML EVERY 4 HRS/AWAKE 02/11 0800 AC 02/13 INH 0225 Albuterol Sulfate 2 PUF Q4P PRN 02/10 2100 AC INH Budesonide/ 2 PUF BID 02/11 2100 AC 02/12 Formoterol Fumarate INH 2040 Celecoxib 200 MG DAILY 02/11 1545 AC 02/12 PO 0925 Diltiazem HCl 240 MG DAILY 02/11 0900 AC 02/12 PO 09 Enoxaparin Sodium 40 MG DAILY 02/11 0900 AC 02/12 SC 0925 Escitalopram Oxalate 10 MG DAILY 02/11 0900 AC 02/12 PO 09 Fluticasone 2 SPRAY DAILY 02/11 09 AC 02/12 Propionate AZALIA 0935 Furosemide 20 MG DAILY 02/12 1330 AC 02/12 PO 1327 Guaifenesin 600 MG Q12 02/10 2100 AC 02/12 PO 2039 Insulin Aspart 0 TIDAC 02/11 08 AC SC Ipratropium [place] 2.5 ML EVERY 4 HRS/AWAKE 02/11 0800 AC 02/13 INH 0225 Lisinopril 10 MG DAILY 02/11 09 AC 02/12 PO 0926 Patient Medication 1 ED ONE ONE 02/12 1530 NH 02/12 Teaching ED 02/12 1531 1624 Assessment/Plan Assessment: Ms. Love is a 67-year-old with a past history of hypertension, type 2 diabetes , anxiety, hyperlipidemia, COPD, obstructive sleep apnea on CPAP, osteoporosis presented to the emergency room with a chief concern of diarrhea 2 days ago. Reported several episodes, up to 10 times in the last 2 days likely from viral gastroenteritis. Since she didn't have any recent antibiotic use, C. difficile is unlikely, but community-acquired C. difficile was in differential. Given her left knee swelling and pain is likely from osteoarthritis, which has been shown by x-ray. Since no radiological effusion is seen, there is no reason he should be tapped. Given chronicity, acute causes of arthritis are ruled out such as reactive in her case. Given continued morning stiffness in her right lower extremity, osteoarthritis is still likely and rheumatological disorders could be kept in mind for differentials. In regards to her gait instability, vitamin B12 deficiency could be ruled out, and no evidence of innner ear problems, or abnormal cerebellar tests. In regards to her respiratory status, she continues to require supplemental oxygen is likely from viral bronchitis. At this time, she would not require any enteral steroids. In regards to her obstructive sleep apnea, she should be continued on CPAP. Pertinent lab findings in the last 24 hours: Na 141, K 4.0, HCO3 27 BUN 18, Sr Cr 0.8 Knee x-ray left 02/11/2018 revealed degenerative arthritic changes medial and patellofemoral compartments. There is no visible acute fracture, dislocation or loose bodies. Problem list: #1 acute diarrhea, likely gastroenteritis #2 COPD, obstructive sleep apnea on CPAP #3 history of hypertension #4 history of type 2 diabetes #5 gait instability secondary to osteoarthritis of right knee Below is the plan : - Taper down oxygen as tolerated. -Continue ipratropium, albuterol, and start symbicort. Pt uses breo, which was continued at the time of discharge. - Continue lisinopril and cardizem. Lasix was re-started. - Continue lópez-2 inhibitors Celecoxib 100mg bid for a total of 7 days, and once daily thereafter for another 7 days.. Hold for GI bleed, which is unlikely but possible. - If she continues to have several episodes of diarrhea, would start gentle hydration. At this time renal function seems normal. -In regards to symptomatic management of nasal congestion, Flonase could be used. -Continue insulin sliding scale for diabetes. Continue to hold oral hypoglycemic drugs at this time. -Fall precautions. Checklist: #1 DVT prophylaxis-Lovenox subcutaneous #2 CODE STATUS-full code. Dispostion- to be discharged to [facility]. Problem List: 1. COPD (chronic obstructive pulmonary disease) 2. HTN (hypertension) 3. SLEEP APNEA ON CPAP 4. MORBID OBESITY 5. Multifactorial gait disorder Pain Ratin Pain Location: LLE Pain Goal: Pain 4 or less Pain Plan: tylenol, celebrex Tomorrow's Labs & Rationales: no labs necessary Jay Sanders MD 02/13/18 1101: Attending Review Statement Attending Statement Attending Statement: examined this patient, discuss w/resident/PA/LEAN SPECIALIST, agreed w/resident/PA/LEAN SPECIALIST, reviewed EMR data (avail), discussed with nursing, discussed with case mgmt, amended to note Attending Assessment/Plan: The patient was seen and discussed with house staff. Diarrhea resolved. Still some wheeze on exam, however the patient uses nebs q4h throughout night at home and here only getting qid. Better post treatment. Knee improved on Celebrex. OK to discharge to [facility] today at [facility] in [place] (at patient request).
[2018-02-13] MEDS ORDERED: CELEBREX200 M1 PO (09:00)
[2018-02-13] MEDS ORDERED: CELEBREX100 M1 PO (09:24)
--- NOTE | 2018-02-13 09:27 | Patient Discharge Instructions ---
Discharge Instructions General Discharge Information You were seen/treated for: - Diarrhea - Osteoarthritis - COPD Watch for these problems: - Chest pain, shortness of breath - Worsening knee pain - Diarrhea Special Instructions: - Please ensure that you get breathing treatment every 4 hrs round the clock Acute Coronary Syndrome Inclusion Criteria At DC or during hospital stay patient has or had the following: ACS DIAGNOSIS No Discharge Core Measures Meds if any: Prescribed or Continued at Discharge Meds if any: NOT Prescribed or Continued at Discharge Congestive Heart Failure Inclusion Criteria At DC or during hospital stay patient has or had the following: CHF DIAGNOSIS No Discharge Core Measures Meds if any: Prescribed or Continued at Discharge Meds if any: NOT Prescribed or Continued at Discharge Cerebrovascular accident Inclusion Criteria At DC or during hospital stay patient has or had the following: CVA/TIA Diagnosis No Discharge Core Measures Meds if any: Prescribed or Continued at Discharge Meds if any: NOT Prescribed or Continued at Discharge Venous thromboembolism Inclusion Criteria VTE Diagnosis No VTE Type NONE VTE Confirmed by (Test) NONE Discharge Core Measures - Per Current guidelines, there needs to be overlap - treatment for the first 5 days of Warfarin therapy. - If discharged on Warfarin prior to 5 days of - overlap therapy, the patient will need to be - assessed for post discharge needs including - *Post discharge parental anticoagulation - *Warfarin and/or parental anticoagulation education - *Follow up date to check INR post discharge At least 5 days overlap therapy as Inpatient No Meds if any: Prescribed or Continued at Discharge Note: Overlap Therapy is Warfarin and Anticoagulant Meds if any: NOT Prescribed or Continued at Discharge
[2018-02-13 11:17] VITALS: BP 138/84
== END 2018-02-13 13:20 | DRG 392 ==
LOC: ERH 13:36 → 2NA 17:12 → ERHI 17:12 → ENRESERV 22:14 → 2NA 02-11 00:26 → ENPENDDIS 02-13 12:43 → 2NA 02-13 13:20
PROVIDERS: Physician Assistant Medical
DX: A09 Infectious gastroenteritis and colitis, unspecified (principal); Z68.41 Body mass index [BMI] 40.0-44.9, adult; R26.9 Unspecified abnormalities of gait and mobility; E11.9 Type 2 diabetes mellitus without complications; Z79.84 Long term (current) use of oral hypoglycemic drugs; E66.9 Obesity, unspecified; I11.0 Hypertensive heart disease with heart failure; I50.9 Heart failure, unspecified; J44.9 Chronic obstructive pulmonary disease, unspecified; F17.210 Nicotine dependence, cigarettes, uncomplicated; R19.7 Diarrhea, unspecified; R32 Unspecified urinary incontinence; Z79.51 Long term (current) use of inhaled steroids; G47.33 Obstructive sleep apnea (adult) (pediatric); M17.11 Unilateral primary osteoarthritis, right knee; F41.9 Anxiety disorder, unspecified
CPT/HCPCS: 2NAP; ERO; 36592; 71045; 73560-LT; 82436; 87015; 87045; 87899; 87899-59; 97110-GO; 97116-GO; 97161-GP; 97530-GO; J1650; J3490